=== PATIENT | male | born 1955 | race Caucasian/White ===

== ENCOUNTER 2017-07-26 06:15 | Emergency (ER) | payer OTHER ==
[2017-07-26] MEDS ORDERED: Silver Nitrate/Potassium Nitr* 1 EA STICK ONE ×2 (06:32→06:34)
[2017-07-26] MEDS ORDERED: Aspirin Low Dose CHEW TAB* 81 MG PO ONE (06:38)
[2017-07-26 06:57] LABS: ABS Basophils 0.1 10^3/ul (0-0.2); ABS Eosinophils 0.1 10^3/ul (0-0.6); ABS Lymphocytes 1.6 10^3/ul (1.0-4.8); ABS Monocytes 0.5 10^3/ul (0-0.8); ABS Neutrophils 2.4 10^3/ul (1.5-7.7); ABS Nucleated RBC 0 10^3/ul; Eosinophil % 3.1 % (0-6); Hematocrit 39 % (42-52); Hemoglobin 13.4 g/dl (14.0-18.0); Lymphocyte % 32.8 % (25-47); Mean Corpuscular HGB Conc 34 g/dl (31-36); Mean Corpuscular Hemoglobin 31 pg (27-31); Mean Corpuscular Volume 92 fL (80-94); Mean Platelet Volume 8 um3 (7.4-10.4); Nucleated Red Blood Cells % 0; Platelet Count 211 10^3/ul (150-450); Red Blood Count 4.28 10^6/ul (4.0-5.4); Red Cell Distribution Width 13 % (10.5-15); White Blood Count 4.7 10^3/ul (3.5-10.8)
[2017-07-26 07:06] LABS: INR 1.09 (0.77-1.02)
--- NOTE | 2017-07-26 07:14 | ED ---
Javi Cavazos Rebecca, scribed for Cherie Presley MD on 07/26/17 at 0634 . HPI Chest Pain - HPI Summary HPI Summary: Pt is a 61 y/o M who presents to ED c/o chest tightness for 2 days. When asked to describe the sensation, he denies any pain, reporting it is a tightness and discomfort located in the right lateral chest. Sx aggravated and alleviated by nothing. Additionally c/o SOB characterized as dyspnea at rest and nausea as well as a wound on the upper lip from shaving this morning. Also reports that hes been "not feeling good for a couple weeks" describing generalized weakness and fatigue. Denies vomiting and abdominal pain. Is not on blood thinners. Has had a stress test previously. Works in the [employer] dept. at [employer], in a [employer] shop and at a [employer]. No PMHx liver disease or complications from alcohol. - History of Current Complaint Chief Complaint: EDChestPainROMI Hx Obtained From: Patient Onset/Duration: Started Days Ago - 2 days, Still Present Current Severity: None Pain Intensity: 0 Pain Scale Used: 0-10 Numeric Chest Pain Location: Right Lateral Character: Tightness, Other: - Discomfort Aggravating Factor(s): Nothing Alleviating Factor(s): Nothing Associated Signs and Symptoms: Positive: Chest Pain - tightness, Shortness of Breath, Nausea. Negative: Vomiting - Allergy/Home Medications Allergies/Adverse Reactions: Allergies Allergy/AdvReac Type Severity Reaction Status Date / Time No Known Allergies Allergy Verified 06/08/15 11:51 PMH/Surg Hx/FS Hx/Imm Hx Endocrine/Hematology History: Denies: Hx Diabetes, Hx Thyroid Disease Cardiovascular History: Reports: Hx Hypertension - ON MEDS Denies: Other Cardiovascular Problems/Disorders Respiratory History: Reports: Hx Chronic Obstructive Pulmonary Disease (COPD) - herniated diaphragm, Hx Sleep Apnea Denies: Hx Asthma, Other Respiratory Problems/Disorders GI History: Denies: Hx Ulcer Sensory History: Reports: Hx Contacts or Glasses - READING GLASSES Denies: Hx Hearing Aid Opthamlomology History: Reports: Hx Contacts or Glasses - READING GLASSES - Surgical History Surgery Procedure, Year, and Place: Left wrist repair, 1999, [facility] [place] [facility] [place] , 1987, [place] Hx Anesthesia Reactions: No Infectious Disease History: No Infectious Disease History: Denies: Hx Hepatitis, Hx Human Immunodeficiency Virus (HIV), History Other Infectious Disease, Traveled Outside the [place] in Last 30 Days - Family History Known Family History: Positive: Cardiac Disease, Diabetes, Other - mother with history of colon cancer - Social History Alcohol Use: Occasionally Alcohol Amount: 5 PER WEEK Substance Use Type: Reports: None Smoking Status (MU): Never Smoked Tobacco Have You Smoked in the Last Year: No Review of Systems Positive: Fatigue, Other - generalized weakness Positive: Chest Pain - tightness Positive: Shortness Of Breath Positive: Nausea. Negative: Abdominal Pain, Vomiting Positive: Other - Wound on the upper lip All Other Systems Reviewed And Are Negative: Yes Physical Exam - Summary Physical Exam Summary: VITAL SIGNS: Reviewed. GENERAL: ~Patient is a well-developed and nourished male who is lying comfortable in the stretcher. Patient is not in any acute respiratory distress. HEAD AND FACE: He has a small laceratoin over the upper lip that is oozing which was cauterized with silver nitrate which stopped the bleeding. No ecchymosis, hematomas or skull depressions. No sinus tenderness. EYES: PERRLA, EOMI x 2, No injected conjunctiva, no nystagmus. EARS: Hearing grossly intact. Ear canals and tympanic membranes are within normal limits. MOUTH: Oropharynx within normal limits. Alcohol on breath. NECK: Supple, trachea is midline, no adenopathy, no JVD, no carotid bruit, no c- spine tenderness, neck with full ROM. CHEST: Symmetric, no tenderness at palpation LUNGS: Clear to auscultation bilaterally. No wheezing or crackles. CVS: Regular rate and rhythm, S1 and S2 present, no murmurs or gallops appreciated. ABDOMEN: Soft, non-tender. Abdomen is distended. No rebound no guarding, and no masses palpated. Bowel sounds are normal. EXTREMITIES: FROM in all major joints, no edema, no cyanosis or clubbing. NEURO: Alert and oriented x 3. No acute neurological deficits. Speech is normal and follows commands. SKIN: Dry and warm Triage Information Reviewed: Yes Vital Signs On Initial Exam: Initial Vitals Temp Pulse Resp BP Pulse Ox 97.9 F 88 20 176/102 94 07/26/17 06:16 07/26/17 06:16 07/26/17 06:16 07/26/17 06:16 07/26/17 06:16 Vital Signs Reviewed: Yes Diagnostics - Vital Signs Vital Signs Temp Pulse Resp BP Pulse Ox 07/26/17 06:16 97.9 F 88 20 176/102 94 - Laboratory Lab Statement: Any lab studies that have been ordered have been reviewed, and results considered in the medical decision making process. - EKG 0639 Cardiac Rate: NL - 85 bpm EKG Rhythm: Sinus Rhythm EKG Interpretation: Normal axis. Normal interval. No ischemic changes. Chest Pain Course/Dx - Course Assessment/Plan: Pt is a 61 y/o M who presents to ED c/o tightness in the right lateral chest for 2 days. Additionally c/o SOB characterized as dyspnea at rest and nausea as well as a wound on the upper lip from shaving this morning. Also reports that hes been "not feeling good for a couple weeks" describing generalized weakness and fatigue. Denies vomiting and abdominal pain. Is not on blood thinners. Has had a stress test previously. 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 No PMHx liver disease or complications from alcohol. EKG is sinus rhythm. Pt will be signed out to Dr. Aparicio, pending disposition, awaiting CXR and CP workup. Elevated BP noted. - Diagnoses Provider Diagnoses: Chest pain Discharge - Discharge Plan Condition: Stable Disposition: OTHER Discharge Disposition Comment: Pt will be signed out, pending dispo, awaiting CXR and workup Referrals: Darryn Khan MD [Primary Care Provider] - The documentation as recorded by the Javi reyes Rebecca accurately reflects the service I personally performed and the decisions made by me, Cherie Presley MD.
[2017-07-26 07:15] LABS: EGFR Non-African American 72.3 (>60)
--- NOTE | 2017-07-26 07:50 | RAD ---
HISTORY: Chest pain COMPARISONS: April 29, 2010 VIEWS: 1: frontal portable view of the chest at 6:57 AM FINDINGS: LINES AND TUBES: None. CARDIOMEDIASTINAL SILHOUETTE: The cardiomediastinal silhouette is normal for portable technique. PLEURA: Again noted is elevation of left hemidiaphragm LUNG PARENCHYMA: The lungs are clear. ABDOMEN: The upper abdomen is clear. There is no subphrenic gas. BONES AND SOFT TISSUES: No bone or soft tissue abnormalities are noted. IMPRESSION: AGAIN NOTED IS ELEVATION OF THE LEFT HEMIDIAPHRAGM.
[2017-07-26 08:37] VITALS: BP 167/102
--- NOTE | 2017-07-26 09:18 | ED ---
Leon Cavazos Jennifer, scribed for Bean Aparicio MD on 07/26/17 at 0845 . Progress - Progress Note Progress Note: The patient is a sign out from Dr. Presley pending CXR and cardiac workup. CXR. Interpreted by a radiologist. IMPRESSION: AGAIN NOTED IS ELEVATION OF THE LEFT HEMIDIAPHRAGM. Dr. Aparicio has reviewed this report. Course/Dx - Course Course Of Treatment: The patient is a sign out from Dr. Presley pending CXR and cardiac workup. CXR shows AGAIN NOTED IS ELEVATION OF THE LEFT HEMIDIAPHRAGM. DISCUSSED RESULTS WITH THE PATIENT. THE CHEST PRESSURE HAS BEEN INTERMITTENT ( LASTING FOR A MINUTE OR 2 AT A TIME) AND RIGHT SIDED. THE LAST EPISODE WAS YESTERDAY THEREFORE NO SECOND TROPONIN WAS DONE. DISCUSSED ADMISSION FOR FURTHER EVALUATION OF THE CHEST PAIN; THE PATIENT DECLINED ADMISSION. HE PREFERS TO F/U WITH HIS PMD. AGREED TO RETURN IF WORSE. - Diagnoses Provider Diagnoses: Chest pain The documentation as recorded by the Leon reyes Jennifer accurately reflects the service I personally performed and the decisions made by , Bean Aparicio MD.
== END 2017-07-26 08:33 | disposition home or self-care (01) ==
LOC: ED 06:15
DX: R07.89 Other chest pain (principal); R06.02 Shortness of breath; J98.6 Disorders of diaphragm
CPT/HCPCS: 36415; 71045; 80053; 80320; 83735; 84484; 85025; 85379; 85610; 85730; 93005; 99282; A9270-GY; G0480

== ENCOUNTER 2017-11-23 05:47 | Emergency (ER) | payer OTHER ==
[2017-11-23] MEDS ORDERED: Morphine VIAL* 4 MG/ML VIAL (1 ml vial) IV ONE (06:03)
--- NOTE | 2017-11-23 06:09 | ED ---
GI/ HPI - HPI Summary HPI Summary: 62-year-old male presents with lower abdominal pain starting today. pain woke him out of his sleep. He states pain radiates to his back to his bilateral groin. He denies any pain with urination. No hematuria. No history of kidney stones. Has any history of diverticulitis. No diarrhea but states could not go to the bathroom this morning. No nausea vomiting. no chest pain or shortness breath. No flank pain. No injury. No loss of bladder or saddle anesthesia. Pain does not radiate into the legs. No fevers. Hasn't taking anything for his pain. Pain is better when standing. Pain radiates to the groin. No penile discharge. - History of Current Complaint Chief Complaint: EDAbdPain Time Seen by Provider: 11/23/17 05:59 Stated Complaint: GROIN/BACK PAIN Pain Intensity: 9 - Allergy/Home Medications Allergies/Adverse Reactions: Allergies Allergy/AdvReac Type Severity Reaction Status Date / Time No Known Allergies Allergy Verified 11/23/17 05:50 PMH/Surg Hx/FS Hx/Imm Hx Endocrine/Hematology History: Denies: Hx Diabetes, Hx Thyroid Disease Cardiovascular History: Reports: Hx Hypertension - ON MEDS Denies: Other Cardiovascular Problems/Disorders Respiratory History: Reports: Hx Chronic Obstructive Pulmonary Disease (COPD) - herniated diaphragm, Hx Sleep Apnea Denies: Hx Asthma, Other Respiratory Problems/Disorders GI History: Denies: Hx Ulcer Sensory History: Reports: Hx Contacts or Glasses - READING GLASSES Denies: Hx Hearing Aid Opthamlomology History: Reports: Hx Contacts or Glasses - READING GLASSES - Surgical History Surgery Procedure, Year, and Place: Left wrist repair, 1999, [facility] [place]. RIGHT HERNIA , 1987, [place], [place] Hx Anesthesia Reactions: No Infectious Disease History: No Infectious Disease History: Denies: Hx Hepatitis, Hx Human Immunodeficiency Virus (HIV), History Other Infectious Disease, Traveled Outside the [place] in Last 30 Days - Family History Known Family History: Positive: Cardiac Disease, Diabetes, Other - mother with history of colon cancer - Social History Alcohol Use: Weekly Alcohol Amount: 5 PER WEEK Substance Use Type: Reports: None Smoking Status (MU): Never Smoked Tobacco Have You Smoked in the Last Year: No Review of Systems Negative: Fever Negative: Chest Pain Negative: Shortness Of Breath Positive: Abdominal Pain. Negative: Vomiting, Diarrhea, Nausea Negative: dysuria All Other Systems Reviewed And Are Negative: Yes Physical Exam Triage Information Reviewed: Yes Vital Signs On Initial Exam: Initial Vitals Temp Pulse Resp BP Pulse Ox 98.3 F 77 20 169/98 94 11/23/17 05:48 11/23/17 05:48 11/23/17 05:48 11/23/17 05:48 11/23/17 05:48 Vital Signs Reviewed: Yes Appearance: Positive: Well-Appearing Skin: Positive: Warm, Dry Head/Face: Positive: Normal Head/Face Inspection Eyes: Positive: Normal, Conjunctiva Clear ENT: Positive: Pharynx normal Respiratory/Lung Sounds: Positive: Clear to Auscultation, Breath Sounds Present Cardiovascular: Positive: Normal, RRR Abdomen Description: Positive: Nontender, Soft. Negative: CVA Tenderness (R), CVA Tenderness (L) Bowel Sounds: Positive: Present Musculoskeletal: Positive: Normal Neurological: Positive: Normal Psychiatric: Positive: Normal Diagnostics - Vital Signs Vital Signs Temp Pulse Resp BP Pulse Ox 11/23/17 05:48 98.3 F 77 20 169/98 94 - Laboratory Result Diagrams: 11/23/17 06:19 11/23/17 06:19 Lab Statement: Any lab studies that have been ordered have been reviewed, and results considered in the medical decision making process. - CT abd CT Interpretation: Positive (See Comments) - 1mm distal right ureteral stone without hydro CT Interpretation Completed By: Radiologist Re-Evaluation - Re-Evaluation First Eval Re-Evaluation Time: 07:35 Change: Improved Comment: feeling better with pain medicaiton. GIGU Course/Dx - Course Course Of Treatment: 62-year-old male presents with lower abdominal pain starting today. pain woke him out of his sleep. He states pain radiates to his back to his bilateral groin. He denies any pain with urination. No hematuria. No history of kidney stones. Has any history of diverticulitis. No diarrhea but states could not go to the bathroom this morning. No nausea vomiting. no chest pain or shortness breath. No flank pain. No injury. No loss of bladder or saddle anesthesia. Pain does not radiate into the legs. No fevers. Hasn't taking anything for his pain. Pain is better when standing. Pain radiates to the groin. No penile discharge. on exam nontender abd. neg CVA tenderness. wbc normal. lfts elevated which is consistent with previously like due to ETOH history. CT shows 1mm distal right ureteral stone without hydro. Patient feels comfortable after morphine. Urine no infection. Discharged with pain medication and Flomax. We'll have follow-up with urology. Patient understands agrees with plan. - Diagnoses Differential Diagnoses - Male: Diverticulitis, Ureteral Calculi, Urinary Tract Infection Provider Diagnoses: Ureteral stone Discharge - Sign-Out/Discharge Documenting (check all that apply): Discharge/Admit/Transfer - Discharge Plan Condition: Good Disposition: HOME Prescriptions: Ondansetron TAB* [Zofran 4 MG Tab*] 4 mg PO Q6H PRN #8 tab PRN Reason: Nausea oxyCODONE/Acetamin 5/325 MG* [Percocet 5/325 TAB*] 1 tab PO Q6H PRN #16 tab MDD 4 PRN Reason: Pain Tamsulosin CAP* [Flomax CAP*] 0.4 mg PO DAILY #7 cap Patient Education Materials: Ureteral Stones (ED) Referrals: Darryn Khan MD [Primary Care Provider] - Zohaib Melchor MD [Medical Doctor] - Additional Instructions: Take ibuprofen every 6 hours and narcotic as needed every 6 hours Take Zofran every 6 hours for nausea as needed Take Flomax daily starting tomorrow, first dose given in ED until stone expelled , make sure stand up slowly Follow up with urology, call office for appointment Strain urine until collect stone Return to ED if unable to manage pain at home, develop fever, or any new or worsening symptoms - Billing Disposition and Condition Condition: GOOD Disposition: Home
[2017-11-23 06:33] LABS: ABS Basophils 0.1 10^3/ul (0-0.2); ABS Eosinophils 0.2 10^3/ul (0-0.6); ABS Lymphocytes 1.3 10^3/ul (1.0-4.8); ABS Monocytes 0.4 10^3/ul (0-0.8); ABS Neutrophils 4.1 10^3/ul (1.5-7.7); ABS Nucleated RBC 0 10^3/ul; Eosinophil % 3.3 % (0-6); Hematocrit 40 % (42-52); Hemoglobin 13.6 g/dl (14.0-18.0); Lymphocyte % 21.3 % (25-47); Mean Corpuscular HGB Conc 34 g/dl (31-36); Mean Corpuscular Hemoglobin 32 pg (27-31); Mean Corpuscular Volume 95 fL (80-94); Mean Platelet Volume 8.5 um3 (7.4-10.4); Nucleated Red Blood Cells % 0.1; Platelet Count 184 10^3/ul (150-450); Red Cell Distribution Width 13 % (10.5-15); White Blood Count 6.1 10^3/ul (3.5-10.8)
[2017-11-23 06:50] LABS: EGFR Non-African American 64.9 (>60)
[2017-11-23 07:31] LABS: Urine Appearance Clear; Urine Blood 3+ (Negative); Urine Color Yellow; Urine Ketones Negative (Negative); Urine Protein Negative (Negative); Urine Specific Gravity 1.011 (1.010-1.030); Urine Urobilinogen Negative (Negative)
[2017-11-23] MEDS ORDERED: Tamsulosin CAP* 0.4 MG PO ONE (07:35)
--- NOTE | 2017-11-23 08:37 | RAD ---
INDICATION: Lower abdominal pain radiating to the bilateral groin and lower back. Previous RIGHT-sided hernia repair. COMPARISON: November 06, 2014 CT. TECHNIQUE: Multidetector CT images were obtained from the lung bases to the ischial tuberosities. Evaluation of the viscera is limited without IV contrast. Multiplanar reformation. REPORT: Chronic severe elevation of the LEFT hemidiaphragm. Associated mild rightward shift of the mediastinum. Upper normal size liver. No focal hepatic lesions evident. No CT abnormality of the gallbladder. Negative for biliary dilatation. Few scattered calcifications at the pancreas may reflect sequela previous pancreatitis. No acute inflammatory change of the pancreas or suspicious focal pancreatic lesions evident. Unremarkable spleen. Incompletely visualized stomach and splenic flexure of the colon due to the elevated LEFT hemidiaphragm. No CT abnormality in the visualized upper GI, small bowel, or appendix. Severe colonic diverticulosis without findings of acute diverticulitis within the [id number]. Negative for ascites or free air. Negative for significant hernias. Normal adrenal glands. Negative for nephrolithiasis or hydronephrosis. Small exophytic cortical cyst mid to upper pole LEFT kidney without suspicious interval change. Minimal prominence of the RIGHT ureter and mild periureteral inflammatory stranding. Punctate approximate 1 mm ureteral stone 2 cm from the RIGHT ureterovesicular junction. Unremarkable LEFT ureter. Unremarkable partially distended urinary bladder. Symmetric seminal vesicles. Negative for lymphadenopathy. Normal diameter abdominal aorta with mild calcific plaque. Physiologic distention of the IVC. Negative for suspicious osseous lesions. IMPRESSION: Punctate approximate 1 mm ureteral stone 2 cm from the RIGHT ureterovesicular junction. Associated minimal dilatation of the RIGHT ureter and periureteral inflammatory stranding. No dilatation of the intrarenal collecting system evident.
[2017-11-23 09:02] VITALS: BP 150/93
== END 2017-11-23 08:59 | disposition home or self-care (01) ==
LOC: ED 05:47
DX: N20.1 Calculus of ureter (principal); R10.30 Lower abdominal pain, unspecified; I10 Essential (primary) hypertension
CPT/HCPCS: 36415; 74176; 80053; 81003; 81015; 83605; 83690; 85025; 86140; 96374; 99283; J2270

== ENCOUNTER 2019-01-02 05:53 | Emergency (ER) | payer OTHER ==
[2019-01-02 06:58] LABS: ABS Basophils 0.2 10^3/ul (0-0.2); ABS Eosinophils 0.1 10^3/ul (0-0.6); ABS Lymphocytes 1.3 10^3/ul (1.0-4.8); ABS Monocytes 0.6 10^3/ul (0-0.8); ABS Neutrophils 3.4 10^3/ul (1.5-7.7); Eosinophil % 1.3 %; Hematocrit 41 % (42-52); Hemoglobin 14.3 g/dL (14.0-18.0); Lymphocyte % 23.4 %; Mean Corpuscular HGB Conc 35 g/dL (31-36); Mean Corpuscular Hemoglobin 32 pg (27-31); Mean Corpuscular Volume 94 fL (80-94); Mean Platelet Volume 8.1 fL (7.4-10.4); Nucleated Red Blood Cells % 0.1; Platelet Count 201 10^3/uL (150-450); Red Blood Count 4.43 10^6 /uL (4.18-5.48); Red Cell Distribution Width 14 % (10-15); White Blood Count 5.7 10^3/uL (3.5-10.8)
[2019-01-02 07:15] LABS: ALT 97 U/L (7-52); AST 148 U/L (13-39); Albumin 3.9 g/dL (3.2-5.2); Albumin/Globulin Ratio 1.6 (1-3); Alkaline Phosphatase 89 U/L (34-104); Anion Gap 9 mmol/L (2-11); BUN/Creatinine Ratio 23.8 (8-20); Blood Urea Nitrogen 25 mg/dL (6-24); C Reactive Protein < 1.00 mg/L (<8.01); CO2 Carbon Dioxide 30 mmol/L (22-32); Calcium 8.5 mg/dL (8.6-10.3); Chloride 100 mmol/L (101-111); EGFR African American 86.9 (>60); EGFR Non-African American 71.8 (>60); Globulin 2.5 g/dL (2-4); Glucose 172 mg/dL (70-100); Potassium 3.9 mmol/L (3.5-5.0); Sodium 139 mmol/L (135-145); Total Protein 6.4 g/dL (6.4-8.9)
[2019-01-02 07:38] LABS: Alcohol < 10 mg/dL (<10)
[2019-01-02 07:45] LABS: INR 1.43 (0.82-1.09)
--- NOTE | 2019-01-02 08:20 | ED ---
Shortness of Breath - HPI Summary HPI Summary: Patient is a 63-year-old male with a history of a left-sided herniated diaphragm , heavy alcohol use, hypertension and hypercholesterolemia presents to the ED with dry heaves over the past 2 days, shortness of breath and weakness 3 days. He states he has been weak the last 3 days, with a decreased appetite and dry heaves. He denies any abdominal pain or vomiting. Denies any constipation or diarrhea. He continues to have bowel movements. He states while working this morning at around 5 AM, he started to become short of breath so came to the ED for further evaluation. He has no history of COPD or asthma. Denies smoking history. Denies any recent travel or known malignancy. Denies cramping or leg pain. Decreased appetite, but was able to eat last evening, nothing to eat this morning. Patient does state he has been drinking more heavily. PMH: alcohol use, HTN, HCL, herniated diaphragm Social hx: alcohol use, no smoking hx, lives at home Surghx: Hernia repair - History of Current Complaint Chief Complaint: EDShortnessOfBreath Time Seen by Provider: 01/02/19 06:05 Hx Obtained From: Patient Onset/Duration: Gradual Onset, Lasting Days Timing: Constant Current Severity: Mild Associated Signs & Symptoms: Negative - Risk Factors Pulmonary Embolism: Negative Cardiac: Negative Pseudomonas: Negative - Allergy/Home Medications Allergies/Adverse Reactions: Allergies Allergy/AdvReac Type Severity Reaction Status Date / Time No Known Allergies Allergy Verified 01/02/19 05:56 PMH/Surg Hx/FS Hx/Imm Hx Previously Healthy: Yes Endocrine/Hematology History: Denies: Hx Diabetes, Hx Thyroid Disease Cardiovascular History: Reports: Hx Hypertension - ON MEDS Denies: Other Cardiovascular Problems/Disorders Respiratory History: Reports: Hx Chronic Obstructive Pulmonary Disease (COPD) - herniated diaphragm, Hx Sleep Apnea Denies: Hx Asthma, Other Respiratory Problems/Disorders GI History: Denies: Hx Ulcer Sensory History: Reports: Hx Contacts or Glasses - READING GLASSES Denies: Hx Hearing Aid Opthamlomology History: Reports: Hx Contacts or Glasses - READING GLASSES - Surgical History Surgery Procedure, Year, and Place: Left wrist repair, 1999, [facility] [place]. [place] , 1987, [place], 2014 Hx Anesthesia Reactions: No - Immunization History Hx Pertussis Vaccination: No Immunizations Up to Date: Yes Infectious Disease History: No Infectious Disease History: Denies: Hx Hepatitis, Hx Human Immunodeficiency Virus (HIV), History Other Infectious Disease, Traveled Outside the [place] in Last 30 Days - Family History Known Family History: Positive: Cardiac Disease, Diabetes, Other - mother with history of colon cancer - Social History Occupation: Employed Full-time Lives: With Family Alcohol Use: Daily Alcohol Amount: 1/2 pint blackberry wilfredo Hx Substance Use: No Substance Use Type: Reports: None Hx Tobacco Use: No Smoking Status (MU): Never Smoked Tobacco Have You Smoked in the Last Year: No Review of Systems - ROS Summary Review of Systems Summary: Constitutional: The patient denies fever, MARIN, sweats or chills. HEENT: Head: The patient denies headaches or dizziness. Eyes: The patient denies diplopia, blurry vision, eye pain, eye discharge, photophobia. Throat: The patient denies sore throats or hoarseness. Cardiovascular: The patient denies chest pain, palpitations, syncope, night cramps, or orthostasis. Respiratory: The patient endorses SOB, denies cough, sputum production, hemoptysis, wheezing. Denies orthopnea. Gastrointestinal: The patient denies odynophagia, dysphagia, hematemesis, melenemesis. Denies abdominal pain, nausea or vomiting. Denies constipation or diarrhea. He does endorse dry heaves. Genitourinary: Patient denies dysuria, hematuria, or pyuria. Patient denies back pain. Muscles: The patient denies myalgia, strain or weakness. Joints: The patient denies arthralgia and/or arthritis. Neurologic: The patient denies headache, loss of consciousness, or seizure. Dermatologic: The patient denies rashes. Constitutional: Negative Negative: Fever, Chills, Fatigue, Skin Diaphoresis Negative: Palpitations, Chest Pain Positive: Shortness Of Breath. Negative: Cough Positive: Other - dry heaves Genitourinary: Negative Positive: no symptoms reported, see HPI Negative: Arthralgia, Myalgia Positive: Weakness All Other Systems Reviewed And Are Negative: Yes Physical Exam - Summary Physical Exam Summary: Appearance: comfortable, pleasant, alert Skin: Soft dry skin, no lesions. Nailbeds pink with no cyanosis or clubbing. No petechia noted. Eyes: FRANCISCO, EOMI, Conjunctiva pink with no redness or exudates. Mouth: Dentition without lesions. Moist mucosa Neck: Full range of motion. Palpable thyroid. Trachea at midline. No lymphadenopathy. Pulm: Chest assymetrical. No deformities on posterior chest wall. Lungs clear to auscultation and percussion, without adventitious sounds. Decreased breath sounds to the L. CV: No JVD. No deformities on anterior chest wall. Heart sounds. RRR. Normal S1 and single S2. No S3, S4, rubs, or murmurs. Carotids 2+ bilaterally without bruits. . GI: Bowel sounds WNL in all 4 quadrants. No pain on deep palpation of all 4 quadrants. Negative rizvi's, negative obturator. Psoas not performed. No pain over Mcburney's point. Musculoskeletal: Flexion and extension of neck without limitations. ROM WNL in all extremities. No deformities noted. Pulses +2 bilaterally. Neuro: Motor strength is 5/5 in upper and lower extremities bilaterally. A&OX3 Psych: Logical, coherent Vital Signs On Initial Exam: Initial Vitals Temp Pulse Resp BP Pulse Ox 97.4 F 76 20 159/101 96 01/02/19 05:55 01/02/19 05:55 01/02/19 05:55 01/02/19 05:55 01/02/19 05:55 Diagnostics - Vital Signs Vital Signs Temp Pulse Resp BP Pulse Ox 01/02/19 07:34 82 17 163/97 95 01/02/19 07:00 85 17 95 01/02/19 06:34 84 14 149/93 95 01/02/19 06:04 83 17 156/101 92 01/02/19 06:03 20 01/02/19 05:55 97.4 F 76 20 159/101 96 - Laboratory Lab Results: Lab Results 01/02/19 01/02/19 01/02/19 Range/Units 06:45 06:45 06:45 WBC 5.7 (3.5-10.8) 10^3/uL RBC 4.43 (4.18-5.48) 10^6 /uL Hgb 14.3 (14.0-18.0) g/dL Hct 41 L (42-52) % MCV 94 (80-94) fL MCH 32 H (27-31) pg MCHC 35 (31-36) g/dL RDW 14 (10-15) % Plt Count 201 (150-450) 10^3/uL MPV 8.1 (7.4-10.4) fL Neut % (Auto) 61.0 % Lymph % (Auto) 23.4 % [place] % (Auto) 10.5 % Eos % (Auto) 1.3 % Baso % (Auto) 3.8 % Absolute Neuts (auto) 3.4 (1.5-7.7) 10^3/ul Absolute Lymphs (auto) 1.3 (1.0-4.8) 10^3/ul Absolute Monos (auto) 0.6 (0-0.8) 10^3/ul Absolute Eos (auto) 0.1 (0-0.6) 10^3/ul Absolute Basos (auto) 0.2 (0-0.2) 10^3/ul Absolute Nucleated RBC 0.0 10^3/ul Nucleated RBC % 0.1 INR (Anticoag Therapy) (0.82-1.09) Sodium 139 (135-145) mmol/L Potassium 3.9 (3.5-5.0) mmol/L Chloride 100 L (101-111) mmol/L Carbon Dioxide 30 (22-32) mmol/L Anion Gap 9 (2-11) mmol/L BUN 25 H (6-24) mg/dL Creatinine 1.05 (0.67-1.17) mg/dL Est GFR ( Amer) 86.9 (>60) Est GFR (Non-Af Amer) 71.8 (>60) BUN/Creatinine Ratio 23.8 H (8-20) Glucose 172 H (70-100) mg/dL Lactic Acid 1.6 (0.5-2.0) mmol/L Calcium 8.5 L (8.6-10.3) mg/dL Total Bilirubin 1.30 H (0.2-1.0) mg/dL AST 148 H (13-39) U/L ALT 97 H (7-52) U/L Alkaline Phosphatase 89 (34-104) U/L Troponin I 0.00 (<0.04) ng/mL C-Reactive Protein < 1.00 (<8.01) mg/L Total Protein 6.4 (6.4-8.9) g/dL Albumin 3.9 (3.2-5.2) g/dL Globulin 2.5 (2-4) g/dL Albumin/Globulin Ratio 1.6 (1-3) Serum Alcohol < 10 (<10) mg/dL 01/02/19 Range/Units 06:45 WBC (3.5-10.8) 10^3/uL RBC (4.18-5.48) 10^6 /uL Hgb (14.0-18.0) g/dL Hct (42-52) % MCV (80-94) fL MCH (27-31) pg MCHC (31-36) g/dL RDW (10-15) % Plt Count (150-450) 10^3/uL MPV (7.4-10.4) fL Neut % (Auto) % Lymph % (Auto) % [place] % (Auto) % Eos % (Auto) % Baso % (Auto) % Absolute Neuts (auto) (1.5-7.7) 10^3/ul Absolute Lymphs (auto) (1.0-4.8) 10^3/ul Absolute Monos (auto) (0-0.8) 10^3/ul Absolute Eos (auto) (0-0.6) 10^3/ul Absolute Basos (auto) (0-0.2) 10^3/ul Absolute Nucleated RBC 10^3/ul Nucleated RBC % INR (Anticoag Therapy) 1.43 H (0.82-1.09) Sodium (135-145) mmol/L Potassium (3.5-5.0) mmol/L Chloride (101-111) mmol/L Carbon Dioxide (22-32) mmol/L Anion Gap (2-11) mmol/L BUN (6-24) mg/dL Creatinine (0.67-1.17) mg/dL Est GFR ( Amer) (>60) Est GFR (Non-Af Amer) (>60) BUN/Creatinine Ratio (8-20) Glucose (70-100) mg/dL Lactic Acid (0.5-2.0) mmol/L Calcium (8.6-10.3) mg/dL Total Bilirubin (0.2-1.0) mg/dL AST (13-39) U/L ALT (7-52) U/L Alkaline Phosphatase (34-104) U/L Troponin I (<0.04) ng/mL C-Reactive Protein (<8.01) mg/L Total Protein (6.4-8.9) g/dL Albumin (3.2-5.2) g/dL Globulin (2-4) g/dL Albumin/Globulin Ratio (1-3) Serum Alcohol (<10) mg/dL Result Diagrams: 01/02/19 06:45 01/02/19 06:45 Lab Statement: Any lab studies that have been ordered have been reviewed, and results considered in the medical decision making process. Course/Dx - Course Course Of Treatment: Patient is evaluated for dry heaves over the course of the past 3-4 days with fatigue. He is also endorsing shortness of breath which started this morning. He does have a history of herniated diaphragm. He denies any cough or congestion. He denies any fevers, sweats, chills. Denies abdominal pain, vomiting, diarrhea or constipation. Last bowel movement was yesterday and was normal. He continues to pass gas. Denies headache or visual changes. He denies any recent illness or travel. Labs obtained which show elevated AST and ALT consistent with a 2:1 ratio consistent with alcoholic hepatic disease. Bili 1.30. Patient denies any RUQ tenderness on deep palpation. No evidence of SBO or obstruction as patient continues to pass gas and have bowel movements. Endorses daily alcohol use with last use last evening. Normal mental status, mild tremor, mild anxiety, headache, no diaphoresis or palpitations per patient. He endorses anorexia and GI upset. Endorses insomnia. Patient has never had seizure-like activity in the past. He states he feels as though he is in WD. He has tried to quit in the past and would like to stop drinking now. He is requesting medications for help. Discussed Ativan and its appropriate use. Pt agrees to not drink alcohol if taking the Ativan. He will f/u with Dr. Bailey soon for a recheck and reevaluation of his alcohol use. VS stable: 97.4, pulse of 76, respirations 20 , 96% on room air and 159/101. This was rechecked at 140/85 approximately 30 minutes after arrival. - Diagnoses Provider Diagnoses: Alcohol withdrawal Discharge - Sign-Out/Discharge Documenting (check all that apply): Patient Departure Patient Received Moderate/Deep Sedation with Procedure: No - Discharge Plan Condition: Stable Disposition: HOME Prescriptions: LORazepam TAB(*) [Ativan 1 MG TAB (*)] 1 mg PO Q8H PRN #10 tab MDD 3 PRN Reason: Anxiety Patient Education Materials: Alcohol Withdrawal (ED) Referrals: Darryn Khan MD [Primary Care Provider] - Additional Instructions: Take the Ativan only if you have withdrawal like symptoms Please follow up with Dr. Bailey as soon as possible Do not drink alcohol especially while taking this medication - Billing Disposition and Condition Condition: STABLE Disposition: Home
[2019-01-02 10:32] VITALS: BP 153/96
== END 2019-01-02 10:30 | disposition home or self-care (01) ==
LOC: ED 05:53
DX: F10.239 Alcohol dependence with withdrawal, unspecified (principal); I10 Essential (primary) hypertension; J44.9 Chronic obstructive pulmonary disease, unspecified; Z79.899 Other long term (current) drug therapy
CPT/HCPCS: 36415; 71046; 80053; 80320; 83605; 84484; 85025; 85610; 86140; 93005; 99283; G0480

== ENCOUNTER 2019-04-17 21:12 | Emergency (ER) | payer OTHER ==
[2019-04-17] MEDS ORDERED: chlordiazePOXIDE CAP* 25 MG PO ONE (21:37)
--- NOTE | 2019-04-17 21:38 | ED ---
Complex/Multi-Sys Presentation - HPI Summary HPI Summary: Pt is a 63 y/o M presenting to the ED with a chief complaint of shortness of breath. Pt states he quit drinking cold turkey about two days ago, and since then he has been experiencing a multitude of symptoms, including being somewhat short of breath/having difficulty breathing. He also reports decreased appetite , feeling like somethings growing in his abd, and he notes a slight chronic tremor. He denies cough, sore throat, rhinorrhea, or fever. - History Of Current Complaint Chief Complaint: EDShortnessOfBreath Time Seen by Provider: 04/17/19 21:27 Hx Obtained From: Patient Onset/Duration: Gradual Onset, Lasting Days, Still Present Timing: Constant, Days Severity Currently: Moderate Severity Initially: Moderate Associated Signs And Symptoms: Positive: SOB, Other - slight tremor. Negative: Cough, Fever - Allergies/Home Medications Allergies/Adverse Reactions: Allergies Allergy/AdvReac Type Severity Reaction Status Date / Time No Known Allergies Allergy Verified 04/17/19 21:16 PMH/Surg Hx/FS Hx/Imm Hx Previously Healthy: Yes Endocrine/Hematology History: Denies: Hx Diabetes, Hx Thyroid Disease Cardiovascular History: Reports: Hx Hypertension Denies: Other Cardiovascular Problems/Disorders Respiratory History: Reports: Hx Chronic Obstructive Pulmonary Disease (COPD), Hx Sleep Apnea Denies: Hx Asthma, Other Respiratory Problems/Disorders GI History: Denies: Hx Ulcer Sensory History: Reports: Hx Contacts or Glasses - READING GLASSES Denies: Hx Hearing Aid Opthamlomology History: Reports: Hx Contacts or Glasses - READING GLASSES Psychiatric History: Reports: Hx Substance Abuse - Surgical History Surgery Procedure, Year, and Place: Left wrist repair, 1999, [facility] – [place]. RIGHT HERNIA , 1987, LEFT HERNIA Hx Anesthesia Reactions: No Infectious Disease History: No Infectious Disease History: Denies: Hx Hepatitis, Hx Human Immunodeficiency Virus (HIV), History Other Infectious Disease, Traveled Outside the [place] in Last 30 Days - Family History Known Family History: Positive: Cardiac Disease, Diabetes, Other - mother with history of colon cancer - Social History Alcohol Use: Daily Alcohol Amount: 1/2 pint-1 pint blackberry wilfredo Hx Substance Use: No Substance Use Type: Reports: None Hx Tobacco Use: No Smoking Status (MU): Never Smoked Tobacco Have You Smoked in the Last Year: No Review of Systems Negative: Fever Negative: Sore Throat, Nasal Discharge Positive: Shortness Of Breath. Negative: Cough Positive: Other - "feels like something's growing in my stomach" All Other Systems Reviewed And Are Negative: Yes Physical Exam - Summary Physical Exam Summary: Appearance: Well-appearing man who appears his stated age, does not appear ill or toxic. Well-nourished, lying in bed comfortably. Elevated BP noted. Skin: Warm, dry, no obvious rash Eyes: sclera anicteric, no conjunctival pallor ENT: mucous membranes moist, pharynx appears normal Neck: Supple, nontender Respiratory: Clear to auscultation, no signs of respiratory distress Cardiovascular: Normal S1, S2. No murmurs. Normal distal pulses in tibial and radial bilaterally. Abdomen: Soft, nontender, normal active bowel sounds present Musculoskeletal: Normal, Strength/ROM Intact Neurological: A&Ox3, awake and alert, mentation is normal, speech is fluent and appropriate. Fine tremor of hands that he says is chronic. Psychiatric: affect is normal, does not appear anxious or depressed Triage Information Reviewed: Yes Vital Signs On Initial Exam: Initial Vitals Temp Pulse Resp BP Pulse Ox 96.9 F 87 20 194/96 92 04/17/19 21:13 04/17/19 21:13 04/17/19 21:13 04/17/19 21:13 04/17/19 21:13 Vital Signs Reviewed: Yes Procedures - Sedation Patient Received Moderate/Deep Sedation with Procedure: No Diagnostics - Vital Signs Vital Signs Temp Pulse Resp BP Pulse Ox 04/17/19 21:13 96.9 F 87 20 194/96 92 - Laboratory Result Diagrams: 04/17/19 21:46 04/17/19 21:46 Lab Statement: Any lab studies that have been ordered have been reviewed, and results considered in the medical decision making process. - Radiology CXR Radiology Interpretation Completed By: ED Physician Summary of Radiographic Findings: Nothing acute. Stable large left hiatal hernia , unchanged since the last film in December. Pending official radiology report. - EKG 2123 Cardiac Rate: NL - 86bpm EKG Rhythm: Sinus Rhythm ST Segment: Normal Ectopy: None Summary of EKG Findings: EKG at 2123 shows NSR at 86bpm, P waves, QRS complex, and T waves are within normal limits, T waves and intervals are normal, no ischemic changes. This is a normal EKG. ED physician has reviewed and interpreted this EKG. Complex Multi-Symp Course/Dx Course Of Treatment: Pt is a 63 y/o M presenting to the ED with a chief complaint of shortness of breath. Pt states he quit drinking cold turkey about two days ago, and since then he has been experiencing slight shortness of breath , decreased appetite, feeling like somethings growing in his abd, and he notes a slight chronic tremor. He denies cough, sore throat, rhinorrhea, or fever. He notes hx of alcoholism. On exam, pt has a fine tremor of his hands that he states is chronic. Pt is a well-appearing man who looks his stated age and does not appear ill or chronic. Elevated BP noted. Pt has asymptomatic high blood pressure on triage that I believe is likely from alcohol withdrawal. This one of many irregularities c/w delirium tremors, I do not think it is autonomic. EKG at 2123 shows NSR at 86bpm, P waves, QRS complex, and T waves are within normal limits, T waves and intervals are normal, no ischemic changes. This is a normal EKG. ED physician has reviewed and interpreted this EKG. CXR shows nothing acute. Stable large left hiatal hernia, unchanged since the last film in December. Pending official radiology report. Pt will be d/c'ed with dx of alcohol withdrawal and hypoxemia. He's stable and agreeable with this plan. - Diagnoses Provider Diagnoses: Hypoxemia, Alcohol withdrawal Discharge ED - Sign-Out/Discharge Documenting (check all that apply): Patient Departure - Discharge Plan Condition: Good Disposition: HOME Prescriptions: [email or web address] CAP* [Librium CAP*] 50 mg PO TID PRN #25 cap MDD 225 mg PRN Reason: Withdrawal - Alcohol Patient Education Materials: Alcohol Withdrawal (ED), Hypoxemia (DC) Referrals: Darryn Khan MD [Primary Care Provider] - Betty Alvarez MD [Medical Doctor] - Additional Instructions: Use the librium 2-3 times daily to control the withdrawal symptoms. I would also recommend getting in to see Dr. Alvarez for further workup of your low oxygen levels and shortness of breath. - Billing Disposition and Condition Condition: GOOD Disposition: Home - Attestation Statements Document Initiated by Scribe: Yes Documenting Scribe: Keiry Chester Provider For Whom Scribe is Documenting (Include Credential): Eric Callahan MD. Scribe Attestation: IKeiry, scribed for Eric Callahan MD. on 04/18/19 at 0630. Scribe Documentation Reviewed: Yes Provider Attestation: The documentation as recorded by the scribe, Keiry Chester accurately reflects the service I personally performed and the decisions made by me, Eric Callahan MD. Status of Scribe Document: Viewed
[2019-04-17 21:52] LABS: ABS Basophils 0.1 10^3/ul (0-0.2); ABS Lymphocytes 1.2 10^3/ul (1.0-4.8); ABS Monocytes 0.8 10^3/ul (0-0.8); ABS Neutrophils 6.9 10^3/ul (1.5-7.7); Eosinophil % 0.4 %; Hematocrit 45 % (42-52); Hemoglobin 15.1 g/dL (14.0-18.0); Mean Corpuscular HGB Conc 34 g/dL (31-36); Mean Corpuscular Hemoglobin 32 pg (27-31); Mean Corpuscular Volume 95 fL (80-94); Platelet Count 213 10^3/uL (150-450); Red Blood Count 4.73 10^6 /uL (4.18-5.48); Red Cell Distribution Width 13 % (10-15)
[2019-04-17 22:08] LABS: ALT 67 U/L (7-52); AST 96 U/L (13-39); Albumin/Globulin Ratio 1.3 (1-3); Alkaline Phosphatase 91 U/L (34-104); Anion Gap 9 mmol/L (2-11); BUN/Creatinine Ratio 21.7 (8-20); Blood Urea Nitrogen 28 mg/dL (6-24); CO2 Carbon Dioxide 31 mmol/L (22-32); Calcium 9.2 mg/dL (8.6-10.3); Chloride 96 mmol/L (101-111); EGFR African American 68.5 (>60); EGFR Non-African American 56.6 (>60); Glucose 147 mg/dL (70-100); Potassium 4.2 mmol/L (3.5-5.0); Sodium 136 mmol/L (135-145)
[2019-04-17 22:16] LABS: Alcohol < 10 mg/dL (<10)
[2019-04-18 00:58] VITALS: BP 156/103
== END 2019-04-18 01:05 | disposition home or self-care (01) ==
LOC: ED 21:12
DX: R09.02 Hypoxemia (principal); F10.239 Alcohol dependence with withdrawal, unspecified; I10 Essential (primary) hypertension; J44.9 Chronic obstructive pulmonary disease, unspecified
CPT/HCPCS: 36415; 71046; 80053; 80320; 85025; 85379; 93005; 99283; A9270-GY; G0480

== ENCOUNTER 2019-04-23 19:43 | Inpatient (IN) | payer OTHER ==
[2019-04-23 20:30] LABS: ABS Basophils 0.1 10^3/ul (0-0.2); ABS Eosinophils 0.1 10^3/ul (0-0.6); ABS Lymphocytes 0.9 10^3/ul (1.0-4.8); ABS Monocytes 0.8 10^3/ul (0-0.8); ABS Neutrophils 8.5 10^3/ul (1.5-7.7); Eosinophil % 0.7 %; Hematocrit 41 % (42-52); Hemoglobin 13.9 g/dL (14.0-18.0); Lymphocyte % 9.1 %; Mean Corpuscular HGB Conc 34 g/dL (31-36); Mean Corpuscular Hemoglobin 33 pg (27-31); Mean Corpuscular Volume 98 fL (80-94); Mean Platelet Volume 8.6 fL (7.4-10.4); Platelet Count 187 10^3/uL (150-450); Red Blood Count 4.24 10^6 /uL (4.18-5.48); Red Cell Distribution Width 14 % (10-15); White Blood Count 10.3 10^3/uL (3.5-10.8)
[2019-04-23 20:49] LABS: ALT 27 U/L (7-52); AST 21 U/L (13-39); Albumin 3.8 g/dL (3.2-5.2); Albumin/Globulin Ratio 1.3 (1-3); Alkaline Phosphatase 90 U/L (34-104); Anion Gap 6 mmol/L (2-11); BUN/Creatinine Ratio 11.5 (8-20); Blood Urea Nitrogen 30 mg/dL (6-24); CO2 Carbon Dioxide 34 mmol/L (22-32); Calcium 9.4 mg/dL (8.6-10.3); Chloride 100 mmol/L (101-111); Creatine Kinase 41 U/L (10-223); EGFR African American 30.5 (>60); EGFR Non-African American 25.2 (>60); Globulin 2.9 g/dL (2-4); Glucose 204 mg/dL (70-100); Potassium 4.5 mmol/L (3.5-5.0); Sodium 140 mmol/L (135-145); Total Protein 6.7 g/dL (6.4-8.9)
--- NOTE | 2019-04-23 20:50 | ED ---
Altered Mental Status - HPI Summary HPI Summary: This pt is a 63 y/o male, with hx of alcohol abuse, presenting to [facility] c/o confusion since this morning. Pt reports he quit drinking alcohol "cold turkey" on "Tuesday", but unable to tell if it was yesterday or last week (04/15/19). He states he came to the ED on 04/17/19 and was given Librium upon discharge. Pt denies drinking any alcohol since "Tuesday". [id number] and brother report they received a call from a friend reporting pt was confused all day today and had taken "one too many pills". Pt's medications include Naltrexone and Librium (which pt reports he took 6 of), aside from his regular medications. Per sister- in-law pt has been confused at least since 2 days ago. Per brother, pt didn't know at 1900 today if it was morning or night. Rswuzz-sz-[id number] reports pt has slurred speech. Brother states they went hunting this weekend (2 days ago) and could smell alcohol in patient's breath. PMHx: herniated diaphragm on the left and noted only his right lung works. On triage, pt is saturating at 82% on room air. HPI is limited due to level 5 caveat - pt is confused - History Of Current Complaint Chief Complaint: EDAltMentalStatus Stated Complaint: TOOK TOO MANY MEDS PER PT Hx Obtained From: Patient, Family/Corporate Giving Manager - Brother and [id number] Hx From Patient Unobtainable Due To: Other - LEVEL 5 CAVEAT - confusion Onset/Duration: Still Present Timing: Lasting Days Severity Currently: Moderate Character: Confusion Aggravating Factor(s): Nothing Alleviating Factor(s): Nothing Associated Signs And Symptoms: Negative: Fever Related History: Other: - hx of alcohol abuse, quit drinking alcohol "cold turkey" on 04/15/19 - Allergies/Home Medications Allergies/Adverse Reactions: Allergies Allergy/AdvReac Type Severity Reaction Status Date / Time No Known Allergies Allergy Verified 04/17/19 21:16 Home Medications: Home Medications Indapamide TAB* [Lozol TAB*] 1.25 mg PO DAILY 04/23/19 [History Confirmed ] Naltrexone TAB* 1 tab PO DAILY 04/23/19 [History Confirmed 11/25/19] PMH/Surg Hx/FS Hx/Imm Hx Endocrine/Hematology History: Denies: Hx Diabetes, Hx Thyroid Disease Cardiovascular History: Reports: Hx Hypertension Denies: Other Cardiovascular Problems/Disorders Respiratory History: Reports: Hx Chronic Obstructive Pulmonary Disease (COPD), Hx Sleep Apnea Denies: Hx Asthma, Other Respiratory Problems/Disorders GI History: Denies: Hx Ulcer Sensory History: Reports: Hx Contacts or Glasses - READING GLASSES Denies: Hx Hearing Aid Opthamlomology History: Reports: Hx Contacts or Glasses - READING GLASSES Psychiatric History: Reports: Hx Substance Abuse - Surgical History Surgical History: Yes Surgery Procedure, Year, and Place: Left wrist repair, 1999, [facility]. RIGHT HERNIA , 1987, LEFT HERNIA Hx Anesthesia Reactions: No Infectious Disease History: No Infectious Disease History: Denies: Hx Hepatitis, Hx Human Immunodeficiency Virus (HIV), History Other Infectious Disease, Traveled Outside the [place] in Last 30 Days - Family History Known Family History: Positive: Cardiac Disease, Diabetes, Other - mother with history of colon cancer - Social History Alcohol Use: Daily Alcohol Amount: 1/2 pint-1 pint blackberry wilfredo Hx Substance Use: No Substance Use Type: Reports: None Hx Tobacco Use: No Smoking Status (MU): Never Smoked Tobacco Have You Smoked in the Last Year: No Review of Systems - ROS Summary Review of Systems Summary: ROS IS LIMITED DUE TO LEVEL 5 CAVEAT - confusion Negative: Fever Positive: Shortness Of Breath Neurological: Other - POSITIVE: AMS, confusion, slurred speech All Other Systems Reviewed And Are Negative: No Physical Exam - Summary Physical Exam Summary: GENERAL: Patient is a well-developed and obese male who is lying comfortable in the stretcher. Patient is in no acute distress. Unable to get a good history from patient, history is obtained from brother and sister in law. HEAD AND FACE: No signs of trauma. No ecchymosis, hematomas or skull depressions. No sinus tenderness. EYES: PERRLA, EOMI x 2, No injected conjunctiva, no nystagmus. EARS: Hearing grossly intact. Ear canals and tympanic membranes are within normal limits. MOUTH: Oropharynx within normal limits. NECK: Supple, trachea is midline, no adenopathy, no JVD, no carotid bruit, no c- spine tenderness, neck with full ROM. CHEST: Symmetric, no tenderness at palpation LUNGS: Left lung with decreased breath sounds. CVS: Regular rate and rhythm, S1 and S2 present, no murmurs or gallops appreciated. ABDOMEN: Soft, non-tender, and obese. Decreased bowel sounds. No rebound no guarding, and no masses palpated. EXTREMITIES: FROM in all major joints, no edema, no cyanosis or clubbing. NEURO: Alert and confused. Speech is normal and follows commands. SKIN: Dry and warm GCS: 15 Triage Information Reviewed: Yes Vital Signs On Initial Exam: Initial Vitals Temp Pulse Resp BP Pulse Ox 99.3 F 97 18 112/86 82 04/23/19 19:44 04/23/19 19:44 04/23/19 19:44 04/23/19 19:44 04/23/19 19:44 Vital Signs Reviewed: Yes Completion Of Physical Exam Limited Due To: Level 5 - confusion Procedures - Sedation Patient Received Moderate/Deep Sedation with Procedure: No Diagnostics - Vital Signs Vital Signs Temp Pulse Resp BP Pulse Ox 04/23/19 19:44 99.3 F 97 18 112/86 82 - Laboratory Lab Results: Lab Results 04/23/19 Range/Units 20:24 WBC 10.3 (3.5-10.8) 10^3/uL RBC 4.24 (4.18-5.48) 10^6 /uL Hgb 13.9 L (14.0-18.0) g/dL Hct 41 L (42-52) % MCV 98 H (80-94) fL MCH 33 H (27-31) pg MCHC 34 (31-36) g/dL RDW 14 (10-15) % Plt Count 187 (150-450) 10^3/uL MPV 8.6 (7.4-10.4) fL Neut % (Auto) 82.2 % Lymph % (Auto) 9.1 % [place] % (Auto) 7.3 % Eos % (Auto) 0.7 % Baso % (Auto) 0.7 % Absolute Neuts (auto) 8.5 H (1.5-7.7) 10^3/ul Absolute Lymphs (auto) 0.9 L (1.0-4.8) 10^3/ul Absolute Monos (auto) 0.8 (0-0.8) 10^3/ul Absolute Eos (auto) 0.1 (0-0.6) 10^3/ul Absolute Basos (auto) 0.1 (0-0.2) 10^3/ul Absolute Nucleated RBC 0.0 10^3/ul Nucleated RBC % 0.0 Result Diagrams: 04/23/19 20:24 04/24/19 03:58 Lab Statement: Any lab studies that have been ordered have been reviewed, and results considered in the medical decision making process. - Radiology Chest XR Radiology Interpretation Completed By: ED Physician Summary of Radiographic Findings: Left diaphragmatic hernia. Similar to prior CXR on 04/17/19 IMPRESSION: Hypoinflation of the left lung with elevation of left hemidiaphragm. No focal airspace opacification is identified. - CT Brain CT CT Interpretation Completed By: Radiologist Summary of CT Findings: IMPRESSION: 1. No acute intracranial abnormality. 2. Mild chronic small vessel ischemic disease. Dr. Pleitez has reviewed this report. - EKG 20:55 Cardiac Rate: NL - at 93 bpm EKG Rhythm: Sinus Rhythm Summary of EKG Findings: EKG at 20:55 shows normal sinus rhythm at a rate of [address] elevations or depressions. Normal axis. LVH. Re-Evaluation - Re-Evaluation First Eval Re-Evaluation Time: 21:20 Comment: Poison control was called by the ED nurse. They recommend medical management and checking for dehydration, as well as possibly hypoxia causing the pt's confusion. Altered Mental Statu Course/Dx - Course Assessment/Plan: This patient is a 63-year-old male with a past medical history of hypertension, dyslipidemia and chronic left diaphragmatic hernia. He presents to the emergency room with family members reporting that the patient has been confused for the last couple days. Patient reports that he is an alcoholic and he hasnt been drinking for at least 7 days, however family members report that he might had been drinking on the weekend but they are unclear. This patient is only complaining of shortness of breath however he is confused and unable to give a good history. EKG shows a normal sinus rhythm without any ST elevations. Chest x-ray impression: unchanged hypoinflation of the left lung with elevation of the left hemidiaphragm. No focal airspace opacification is identified. Blood test results without any significant abnormality except for slight anemia with a hemoglobin 13.9, hematocrit 41, chloride 100, carbon dioxide of 34, BUN is 30 and creatinine 2.6 possibly secondary to dehydration, glucose is 204, and troponin is 0.2. Head CT impression: No acute intracranial pathology. Patient was given an aspirin since his troponin is elevated. I discussed the case with Dr. Belcher from the hospitalist services and accepted the patient for admission. Patient is alert but not oriented and hemodynamically stable. - Diagnoses Differential Diagnosis/HQI/PQRI: CVA, Hypoglycemia, Hypoxia, Intracranial Bleed , Medication Reaction, Metabolic Disorder, Overdose, Seizure, TIA Provider Diagnoses: AMS (altered mental status), Acute renal failure, Troponin level elevated - Provider Notifications Discussed Care Of Patient With: Nelli Belcher - hospitalist Time Discussed With Above Provider: 21:25 Instructed by Provider To: Admit As Inpatient Discharge ED - Sign-Out/Discharge Documenting (check all that apply): Patient Departure - Admit to [facility] [place] - Discharge Plan Condition: Stable Disposition: ADMITTED TO [facility] - Billing Disposition and Condition Condition: STABLE Disposition: Admitted to [facility] - Attestation Statements Document Initiated by Scribe: Yes Documenting Scribe: Philly Avila Provider For Whom Becky is Documenting (Include Credential): Liam Pleitez MD Scribe Attestation: [place], scribed for Liam Pleitez MD on 04/24/19 at 0827. Scribe Documentation Reviewed: Yes Provider Attestation: The documentation as recorded by the Philly reyes accurately reflects the service I personally performed and the decisions made by me, Liam Pleitez MD Status of Scribe Document: Viewed
[2019-04-23 20:53] LABS: Alcohol < 10 mg/dL (<10)
[2019-04-23 20:57] LABS: Acetaminophen < 15 mcg/mL
[2019-04-23] MEDS ORDERED: NS 0.9% 1000 ML** 1,000 ML IV SCH (21:00)
[2019-04-23] MEDS ORDERED: Aspirin 81 mg CHEW TAB* 81 MG TAB.CHEW PO ONE (21:05)
[2019-04-23 21:09] LABS: TSH (Thyroid Stimulating Horm) 0.49 mcIU/mL (0.34-5.60)
[2019-04-23 21:23] LABS: Urine Appearance Clear; Urine Bilirubin Negative (Negative); Urine Blood Negative (Negative); Urine Color Yellow; Urine Glucose Negative (Negative); Urine Ketones Negative (Negative); Urine Nitrite Negative (Negative); Urine Protein Negative (Negative); Urine Specific Gravity 1.011 (1.010-1.030); Urine Urobilinogen Negative (Negative)
[2019-04-23 21:35] LABS: Urine Benzodiazepine Screen Presumptive Positive (None Detect); Urine Opiates Screen None Detected (None Detect)
[2019-04-23] MEDS ORDERED: Ondansetron INJ* 2 MG/ML VIAL IV PRN (22:22)
[2019-04-23] MEDS: NS 0.9% 1000 ML** 1,000 ML IV SCH (23:38)
[2019-04-24 00:18] LABS: Sodium 141 mmol/L (135-145)
[2019-04-24 00:24] LABS: Troponin I 0.18 ng/mL (<0.03)
--- NOTE | 2019-04-24 00:52 | HP ---
CC: Dr. Khan * HISTORY AND PHYSICAL: DATE OF ADMISSION: 04/23/19 PRIMARY CARE PROVIDER: Dr. Khan. CHIEF COMPLAINT: Altered mental status. HISTORY OF PRESENT ILLNESS: Mr. Rice is a 63-year-old male who has a history of alcoholism, obstructive sleep apnea - not treated, and hypertriglyceridemia who presented to the emergency room after his family found him very confused. On 04/17/19, the patient presented to the emergency room after quitting drinking alcohol what he states is cold turkey. He was prescribed Librium to take 3 times daily to get through the alcohol withdrawal symptoms. Additionally , he was prescribed naltrexone. The patient states that he has not been drinking since that time, though his family is suspicious that he actually was drinking. The patient is a not a reliable historian at this time. He does tell me, however, that taking these medications "messed him up." The patient's family also notes that since last week, the patient has had a mild left facial droop and slurred speech, which have gotten progressively worse. They also note that he has become much more confused and almost dazed appearing. Earlier this evening he did not know what day it was. 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 Other than the Librium and naltrexone, there have been no new medications. It was also noted during the ER visit on 04/17/19 , he desaturated and it was recommended that the patient follow up with his PCP to see if he needs oxygen with sleep. PAST MEDICAL HISTORY: 1. Chronically elevated left hemidiaphragm. 2. KEY - not treated. 3. Alcoholism. 4. Hypertriglyceridemia. PAST SURGICAL HISTORY: 1. Inguinal hernia repair - left. 2. ORIF, left scaphoid with distal radius bone graft. 3. Right inguinal hernia repair. MEDICATIONS: 1. Indapamide 1.25 mg p.o. daily. 2. Chlordiazepoxide 50 mg p.o. t.i.d. p.r.n. alcohol withdrawal symptoms. 3. Naltrexone 50 mg p.o. daily. 4. Losartan 25 mg p.o. daily. 5. Lipitor 40 mg p.o. daily. 6. Aspirin 81 mg p.o. daily. ALLERGIES: No known drug allergies. FAMILY HISTORY: According to the patient's brother, mom is living, she is 89, she has Alzheimer's, diabetes, and coronary artery disease; biologic father is , cause of is unknown. SOCIAL HISTORY: The patient does not smoke. He tells me that when he was drinking, he was drinking one half to 1 pint of hard liquor per day. 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 He states that his drinking has never impaired his ability to work. His brother tells me he last worked last week. The patient is able to clearly state that he would want his brother to be his healthcare proxy and that he would want to be a full code. The patient's brother corroborates these decisions. REVIEW OF SYSTEMS: As per HPI and otherwise not obtainable. PHYSICAL EXAMINATION GENERAL: The patient is a well-developed, middle-aged obese male seen lying relatively flat in the stretcher, in no acute distress. VITAL SIGNS: Blood pressure 115/69, pulse 93, respirations 16, temp 99.3, O2 sat 84% on 2 L. HEENT: Pupils are round. Extraocular muscles are intact. The patient's sclerae are injected. Oropharynx is clear. There are slightly tacky oral secretions. There is no submandibular, cervical, or supraclavicular adenopathy, though the patient's body habitus makes this a difficult exam. PULMONARY: Lungs are clear anteriorly. CARDIAC: Normal S1, S2. Heart rate is mildly tachycardic. It is regular. There is trace ankle edema bilaterally. ABDOMEN: Bowel sounds are present. Abdomen is moderately distended. It is tympanic to percussion. It is nontender. MUSCULOSKELETAL: The patient moves all 4 extremities symmetrically. NEURO: The patient has very flat affect at this point. Cranial nerves II through XII appear to be grossly intact, though there is a slight droop to the left corner of the mouth. Speech is moderately dysarthric. Strength of the upper extremities is 5/5 and symmetric bilaterally. Strength in the lower extremities is 5/5 on the right, perhaps 4+/5 on the left proximal and 5/5 on the left distal. PSYCH: The patient is confused. Again, flat affect, appearing dazed. SKIN: Warm and dry. The patient's face is flushed. There are no rashes. DIAGNOSTIC STUDIES/LAB DATA: Labs, WBC 10.3, hemoglobin 13.9, hematocrit 41, platelets 187. Sodium 140, potassium 4.5, chloride 100, CO2 34, BUN 30, creatinine 2.60, glucose 204. Lactic acid 1.5. Calcium 9.4. Magnesium 2.0. Bilirubin 0.4, AST 21, ALT 27, alk phos 90. Ammonia initially 53, up to 70. CPK 41. Troponin 0.20. Albumin 3.8. TSH 0.49. Urinalysis reveals a specific gravity of 1.011, otherwise negative for signs of infection. Urine drug screen is positive for benzodiazepines and otherwise negative, alcohol less than 10, acetaminophen less than 15. ABG 7.19/36/112. EKG reveals sinus tachycardia with no acute ST-T wave abnormalities. Chest x-ray to my interpretation reveals a chronically elevated left hemidiaphragm, right lung appears clear without infiltrate. CT brain, no acute intracranial abnormality, mild chronic small vessel ischemic changes noted. ASSESSMENT AND PLAN: Mr. Rice is a 63-year-old male with a history of alcoholism and obstructive sleep apnea who presented to the emergency room with complaints of altered mental status. 1. Altered mental status. At this point, the differential on this is broad. My leading suspicion is that this is a metabolic encephalopathy secondary to Librium use. Additionally, I am suspicious the Librium sedated the patient too much to lead to poor oral intake and because of this acute renal failure. Additionally, he has a significant metabolic acidosis with a pH of 7.19. His pCO2 is higher than I would anticipate with his pH being as low as it was. This is a non-anion gap metabolic acidosis. I question if this non-anion gap metabolic acidosis is secondary to his renal failure and a renal tubular acidosis. The patient's ammonia level is also elevated mildly at 73. For now, I am not going to treat this; however, we will follow up the level tomorrow morning and if higher, would initiate lactulose. 2. Elevated troponin. The patient has a mildly elevated troponin of 0.2. There are no reports of chest pain. A followup troponin will be obtained this evening. EKG will also be obtained at the same time. Transthoracic echocardiogram has been ordered. 3. Acute renal failure. I will send a urine sodium, urine creatinine to calculate a fractional excretion of sodium. A renal ultrasound has also been ordered to evaluate for obstructive uropathy. My suspicion, however, is the patient is prerenal. He will be receiving normal saline at 100 mL per hour. 4. Left facial droop and moderate dysarthria. This reportedly has been ongoing since last week. I have questioning whether or not the patient may have had a cerebrovascular accident. Nothing was reported on a CT brain. Therefore, we will pursue MRI of the brain. He is already on aspirin 81 mg p.o. daily and for now, this will be continued. Neuro checks will be obtained every 4 hours. 5. Obstructive sleep apnea. The patient very clearly desaturates with sleep. He dropped 73% on 3 L in the ER when he fell asleep. The patient will be admitted to the ICU for close monitoring given his severe metabolic acidosis and hypoxia. He may require BiPAP. 6. Hypertension. Blood pressure is under excellent control. He is going to have his losartan and indapamide held for now. If his blood pressure becomes markedly elevated, the indapamide could be added back; however, we would hold the losartan until his renal function normalizes. 7. Hyperlipidemia. The patient will continue on Lipitor 40 mg daily. 8. Alcoholism. The patient reportedly last drank on 04/17/19 or shortly there before. It is questionable whether or not he has been drinking at home. Given the possibility that he has been drinking, I am placing him on the [facility] protocol. 9. DVT prophylaxis: According to the Adult Thrombosis Prophylaxis Risk Factor Assessment Guide, the patient has a total risk factor score of 3, making him high risk. Lovenox 40 mg subcutaneous daily will be utilized as DVT prophylaxis. 10. Code status is full. TIME SPENT: 65 minutes was spent admitting this patient. [id number]/[facility] #: [id number] VINCE
[2019-04-24] MEDS ORDERED: Succinylcholine* 20 MG/ML 10 ML VIAL ONE (03:41)
[2019-04-24] MEDS ORDERED: Propofol* 100 ML ONE (03:47)
[2019-04-24] MEDS ORDERED: Etomidate* 2 MG/ML 20 ML VIAL (40 MG) ONE (03:50)
--- NOTE | 2019-04-24 03:55 | PN ---
Progress Note - Progress Note Date of Service: 04/24/19 Note: Upon arrival to the ICU from the ED, the patient was saturating only 88% on 10L. He was subsequently started on BiPAP. I was contacted by nursing that his O2 sat was dipping into the 80's but hovering around 91% on BiPAP with an FiO2 of 100%. ABG was obtained and revealed a pH of 7.13 (worse than prior) with a pCO2 103. I asked Dr. Garcia to intubate the patient. He was successfully intubated on the first try by Dr. Garcia via glide scope. I spoke with the patient's brother prior to intubation and he agreed.
[2019-04-24] MEDS: Propofol* 100 ML IV SCH ×2 (04:00→18:05)
[2019-04-24 04:23] LABS: BUN/Creatinine Ratio 13.3 (8-20); Calcium 9.2 mg/dL (8.6-10.3); EGFR African American 37.4 (>60); EGFR Non-African American 30.9 (>60)
[2019-04-24 04:47] LABS: Potassium 5.3 mmol/L (3.5-5.0)
[2019-04-24 04:48] LABS: Urine Appearance Clear; Urine Bilirubin Negative (Negative); Urine Blood Negative (Negative); Urine Color Yellow; Urine Glucose Negative (Negative); Urine Ketones Negative (Negative); Urine Nitrite Negative (Negative); Urine Protein Negative (Negative); Urine Urobilinogen Negative (Negative)
[2019-04-24] MEDS: Dexmedetomidine* 1,000 MCG in NS 0.9% 250 ML* 240 ML IV SCH (05:30)
--- NOTE | 2019-04-24 05:44 | PROCNOTE ---
- Assessment for Patient Restraint Evaluation of the Patient's Immediate Situation: Pt was recently intubated for hypercarbic respiratory failure. His blood pressure is not allowing for adequate sedation with propofol. Trialling precedex to sedate the patient. In the meantime the patient is moving both arms and reaching for the ET tube. Self extubation would be detrimental to the patient's health. Patient's Reaction to Intervention: Pt to be placed in soft wrist restraints bilaterally. Will adjust precedex drip to improve sedation/patient comfort. Patient's Medication and Behavioral Condition: Safety monitor in place temporarily while awake and reaching for ET tube.
[2019-04-24] MEDS: Chlorhexidine MOUTHWASH 0.12%* 15 ML UDC TOPICAL SCH ×5 (05:52→20:25)
[2019-04-24] MEDS: Pantoprazole IV* 40 MG IV SCH (05:53)
[2019-04-24] MEDS ORDERED: NS 0.9% 1000 ML** 1,000 ML IV ONE (06:15)
[2019-04-24] MEDS ORDERED: Perflutren Lipid Microsphere* 3 ML VIAL ONE (08:05)
[2019-04-24] MEDS: Enoxaparin(*) 40 MG/0.4 ML SYR SUBCUT SCH (08:58)
[2019-04-24] MEDS: Aspirin EC TAB* 81 MG TAB.EC PO SCH (08:59)
[2019-04-24] MEDS: Atorvastatin* 40 MG TAB PO SCH (08:59)
[2019-04-24] MEDS ORDERED: Losartan TAB* 25 MG PO SCH (09:00)
--- NOTE | 2019-04-24 10:13 | ECHO ---
*[facility]* [place] [address] Fax #: [phone] Transthoracic Echocardiogram Patient: Dank Rice : 1955 Study Date: 04/24/2019 Age: 63 Gender: M HR: 67 bpm Height: 70 in /177.8 cm BSA: 2.22 m^2 Weight: 229.5 lb /104.3 kg BMI: 33 kg/m^2 *Reflector Driller And Deburrer: * Shannan Garcia [facility] *Referring Physician: * Nelli BelcherReading Physician: * Beck Scott MD Indications: Myocardial Infarction (new). History: Functional status: Not following treatment plan for sleep apnea. Risk factors: Hypertension. Diabetes mellitus. Dyslipidemia. ETOH abuse. Conclusions Summary: - Left ventricle: Systolic function is moderately reduced. The estimated ejection fraction is 30-35%. Moderate diffuse hypokinesis. - Right ventricle: Systolic function is moderately reduced. - Left atrium: The atrium is mildly dilated. - Mitral valve: There is trace regurgitation. - Aortic valve: There is no evidence of stenosis. There is no significant regurgitation. - Tricuspid valve: There is trace regurgitation. - Pericardium, extracardiac: There is no significant pericardial effusion. - Pulmonary arteries: Systolic pressure can not be accurately estimated. - Study data: No prior study is available for comparison. Study data: Transthoracic echocardiogram. Procedure: Transthoracic echocardiography was performed. Image quality was suboptimal. The study was technically limited due to restricted patient mobility and Patient on ventilator. Complete 2D, spectral Doppler, and color flow Doppler. Location: ICU Patient status: Inpatient. Patient room number: ICU-08. No prior study is available for comparison. Rhythm: Normal sinus rhythm. Findings Left ventricle: The cavity size is normal. Wall thickness is at the upper limits of normal. Systolic function is moderately reduced. The estimated ejection fraction is 30-35%. Moderate diffuse hypokinesis. Regional wall motion abnormalities: Hypokinesis of the entireinferolateral and inferior myocardium. Hypokinesis of the basalinferolateral myocardium. Hypokinesis of the apicalanterior and anterolateral myocardium. Doppler parameters are consistent with abnormal left ventricular relaxation (grade 1 diastolic dysfunction). Right ventricle: The cavity size is mildly to moderately dilated. Systolic function is moderately reduced. Left atrium: The atrium is mildly dilated. Right atrium: The atrium is mildly dilated. Mitral valve: The leaflets are mildly thickened. There is no evidence of stenosis. There is trace regurgitation. Aortic valve: The valve is trileaflet. The leaflets are mildly thickened. There is no evidence of stenosis. There is no significant regurgitation. Tricuspid valve: The leaflets are normal thickness. There is no evidence of stenosis. There is trace regurgitation. Pulmonic valve: The leaflets are normal thickness. There is no evidence of stenosis. There is trace regurgitation. Aorta: Aortic root: The aortic root is appears normal. Ascending aorta: The ascending aorta is appears normal. Aortic arch: The aortic arch is poorly visualized. Pericardium: A prominent pericardial fat pad is present. There is no significant pericardial effusion. Pulmonary arteries: The main pulmonary artery is normal-sized. Systolic pressure can not be accurately estimated. Systemic veins: Inferior vena cava: Not well visualized. Measurements Left ventricle Value Ref Right atrium Value Ref CHIDI, LAX 4.7 cm 4.2 - 5.8 SI dim, ES 4.8 cm 3.4 - 5.3 ESD, LAX (H) 4.2 cm 2.5 - 4.0 ML dim, ES, A4C (H) 4.9 cm 2.6 - 4.4 FS, LAX (L) 12 % 25 - 43 SI dim, ES, A4C 4.8 cm 3.4 - 5.3 PW, ED, LAX 1.0 cm 0.6 - 1.0 FS (L) 12 % 25 - 43 Aortic valve Value Ref PW, ED 1.0 cm 0.6 - 1.0 Kayley diam, ED 2.1 cm --------- PW/ID, ED 0.21 Peak v, S 1.07 m/sec --------- E', lat kayley, TDI (L) 8.2 cm/sec >=10.0 VTI, S 21.1 cm --- ------ E/e', lat kayley, 7 Mean grad, S 3.0 mm Hg ------ --- TDI Peak grad, S 5.0 mm Hg --------- E', med kayley, TDI (L) 6.2 cm/sec >=7.0 LVOT/AV, VTI ratio 0.66 --- ------ E/e', med kayley, 9 TDI Mitral valve Value Ref E', avg, TDI 7.2 cm/sec Peak E 0.54 m/sec ------ --- E/e', avg, TDI 8 <=14 Peak A 0.65 m/sec --- ------ Decel time 180 ms --------- LVOT Value Ref Peak E/A ratio 0.8 --------- Peak jose, S 0.7 m/sec VTI, S 14.0 cm Pulmonic valve Value Ref Mean grad, S 1 mm Hg Peak v, S 0.99 m/sec --------- Peak grad, S 4.0 mm Hg --------- Ventricular septum Value Ref IVS, ED 1.0 cm 0.6 - 1.0 Aortic root Value Ref Root diam 3.5 cm <4.3 Right ventricle Value Ref CHIDI, LAX 3.7 cm Ascending aorta Value Ref CHIDI minor ax, (H) 4.3 cm 1.9 - 3.5 AAo AP diam, S 3.0 cm --------- A4C mid Left atrium Value Ref AP dim, ES 3.70 cm 3.00 - 4.00 ML dim, A4C 4.6 cm SI dim, A4C 5.4 cm Vol/bsa, ES, 1-p (H) 45 ml/m^2 12 - 37 A4C Vol/bsa, ES, A/L (H) 38 ml/m^2 16 - 34 Legend: (L) and (H) miracle values outside specified reference range. Prepared and electronically signed by Beck Scott MD 04/24/2019 10:12
--- NOTE | 2019-04-24 12:05 | PN ---
Date of Service: 04/24/19 Critical Care Services: Events reviewed. Acute hypercapnic respiratory failure in setting of hyperammonemia, cardiomyopathy and alcohol detoxification. Vital Signs: Temp Pulse Resp BP SpO2 FiO2 36.9 C 64 20 103/77 99 100 04/24/19 08:00 04/24/19 10:00 04/24/19 10:00 04/24/19 09:45 04/24/19 10:00 04/24 08:00 Physical Exam: Gen: NAD, sedated HEENT: NCAT, PERRL, intubated Lungs: coarse entry bilat Cardiac: S1S2 regular Abdomen: soft, NT, ND, +BS Extremities: trace edema Neuro: sedated, moves ext Fluid Balance (Past 24 Hours): I= O= Net Intake & Output 04/22/19 04/23/19 04/24/19 04/25/19 06:59 06:59 06:59 06:59 Intake Total 689.6 70 Output Total 500 186 Balance 189.6 -116 Weight 110.5 kg 110.5 kg Intake: IV Fluids 647 NS 647 Medicated IV 42.6 Precedex 6.1 Propofol 36.5 NG Tube Irrigate Amount 70 Output: Urine 0 Hahn 500 186 Labs: Laboratory Results - last 24 hr 04/23/19 04/23/19 04/23/19 20:24 20:24 20:24 WBC 10.3 RBC 4.24 Hgb 13.9 L Hct 41 L MCV 98 H MCH 33 H MCHC 34 RDW 14 Plt Count 187 MPV 8.6 Neut % (Auto) 82.2 Lymph % (Auto) 9.1 Emmons % (Auto) 7.3 Eos % (Auto) 0.7 Baso % (Auto) 0.7 Absolute Neuts (auto) 8.5 H Absolute Lymphs (auto) 0.9 L Absolute Monos (auto) 0.8 Absolute Eos (auto) 0.1 Absolute Basos (auto) 0.1 Absolute Nucleated RBC 0.0 Nucleated RBC % 0.0 Patient Temperature ABG pH ABG pH (Temp Correct) ABG pCO2 ABG pCO2 (Temp Corrct ABG pO2 ABG pO2 (Temp Correct ABG HCO3 ABG O2 Saturation ABG Base Excess Respiration Rate O2 Delivery Device Ventilator Type Vent Mode FiO2 Inspiratory Time PEEP Pressure Support Pressure Control EPAP IPAP BiPAP Sodium 140 Potassium 4.5 Chloride 100 L Carbon Dioxide 34 H Anion Gap 6 BUN 30 H Creatinine 2.60 H Est GFR ( Amer) 30.5 Est GFR (Non-Af Amer) 25.2 BUN/Creatinine Ratio 11.5 Glucose 204 H Serum Osmolality Lactic Acid Calcium 9.4 Magnesium 2.0 Total Bilirubin 0.40 AST 21 ALT 27 Alkaline Phosphatase 90 Ammonia 53 Total Creatine Kinase 41 Troponin I 0.20 H* Total Protein 6.7 Albumin 3.8 Globulin 2.9 Albumin/Globulin Ratio 1.3 TSH 0.49 Urine Color Urine Appearance Urine pH Ur Specific [place] Urine Protein Urine Ketones Urine Blood Urine Nitrate Urine Bilirubin Urine Urobilinogen Ur Leukocyte Esterase Urine Glucose Urine Ascorbic Acid Urine Opiates Screen Acetaminophen < 15 Ur Barbiturates Screen Ur Phencyclidine Scrn Ur Amphetamines Screen U Benzodiazepines Scrn Urine Cocaine Screen U Cannabinoids Screen Serum Alcohol < 10 04/23/19 04/23/19 04/23/19 20:24 21:03 21:03 WBC RBC Hgb Hct MCV MCH MCHC RDW Plt Count MPV Neut % (Auto) Lymph % (Auto) Emmons % (Auto) Eos % (Auto) Baso % (Auto) Absolute Neuts (auto) Absolute Lymphs (auto) Absolute Monos (auto) Absolute Eos (auto) Absolute Basos (auto) Absolute Nucleated RBC Nucleated RBC % Patient Temperature ABG pH ABG pH (Temp Correct) ABG pCO2 ABG pCO2 (Temp Corrct ABG pO2 ABG pO2 (Temp Correct ABG HCO3 ABG O2 Saturation ABG Base Excess Respiration Rate O2 Delivery Device Ventilator Type Vent Mode FiO2 Inspiratory Time PEEP Pressure Support Pressure Control EPAP IPAP BiPAP Sodium Potassium Chloride Carbon Dioxide Anion Gap BUN Creatinine Est GFR ( Amer) Est GFR (Non-Af Amer) BUN/Creatinine Ratio Glucose Serum Osmolality Lactic Acid 1.5 Calcium Magnesium Total Bilirubin AST ALT Alkaline Phosphatase Ammonia Total Creatine Kinase Troponin I Total Protein Albumin Globulin Albumin/Globulin Ratio TSH Urine Color Yellow Urine Appearance Clear Urine pH 5.0 Ur Specific [place] 1.011 Urine Protein Negative Urine Ketones Negative Urine Blood Negative Urine Nitrate Negative Urine Bilirubin Negative Urine Urobilinogen Negative Ur Leukocyte Esterase Negative Urine Glucose Negative Urine Ascorbic Acid * A Urine Opiates Screen None detected Acetaminophen Ur Barbiturates Screen None detected Ur Phencyclidine Scrn None detected Ur Amphetamines Screen None detected U Benzodiazepines Scrn Presumptive positive A Urine Cocaine Screen None detected U Cannabinoids Screen None detected Serum Alcohol 04/23/19 04/23/19 04/23/19 21:35 22:03 23:53 WBC RBC Hgb Hct MCV MCH MCHC RDW Plt Count MPV Neut % (Auto) Lymph % (Auto) Emmons % (Auto) Eos % (Auto) Baso % (Auto) Absolute Neuts (auto) Absolute Lymphs (auto) Absolute Monos (auto) Absolute Eos (auto) Absolute Basos (auto) Absolute Nucleated RBC Nucleated RBC % Patient Temperature ABG pH 7.19 L* ABG pH (Temp Correct) ABG pCO2 36 ABG pCO2 (Temp Corrct ABG pO2 112 H ABG pO2 (Temp Correct ABG HCO3 14.4 L ABG O2 Saturation 99.9 H ABG Base Excess -13.5 L Respiration Rate O2 Delivery Device Ventilator Type Vent Mode FiO2 Inspiratory Time PEEP Pressure Support Pressure Control EPAP IPAP BiPAP Sodium 141 Potassium Chloride Carbon Dioxide Anion Gap BUN Creatinine Est GFR ( Amer) Est GFR (Non-Af Amer) BUN/Creatinine Ratio Glucose Serum Osmolality Lactic Acid Calcium Magnesium Total Bilirubin AST ALT Alkaline Phosphatase Ammonia 70 H Total Creatine Kinase Troponin I 0.18 H* Total Protein Albumin Globulin Albumin/Globulin Ratio TSH Urine Color Urine Appearance Urine pH Ur Specific [place] Urine Protein Urine Ketones Urine Blood Urine Nitrate Urine Bilirubin Urine Urobilinogen Ur Leukocyte Esterase Urine Glucose Urine Ascorbic Acid Urine Opiates Screen Acetaminophen Ur Barbiturates Screen Ur Phencyclidine Scrn Ur Amphetamines Screen U Benzodiazepines Scrn Urine Cocaine Screen U Cannabinoids Screen Serum Alcohol 04/24/19 04/24/19 04/24/19 03:16 03:58 03:58 WBC RBC Hgb Hct MCV MCH MCHC RDW Plt Count MPV Neut % (Auto) Lymph % (Auto) Emmons % (Auto) Eos % (Auto) Baso % (Auto) Absolute Neuts (auto) Absolute Lymphs (auto) Absolute Monos (auto) Absolute Eos (auto) Absolute Basos (auto) Absolute Nucleated RBC Nucleated RBC % Patient Temperature Not Reportable ABG pH 7.13 L* ABG pH (Temp Correct) Not Reportable ABG pCO2 103 H* ABG pCO2 (Temp Corrct Not Reportable ABG pO2 88 ABG pO2 (Temp Correct Not Reportable ABG HCO3 26.3 ABG O2 Saturation 98.0 ABG Base Excess 1.8 Respiration Rate Not Reportable O2 Delivery Device Bipap Ventilator Type Not Reportable Vent Mode Not Reportable FiO2 80 Inspiratory Time Not Reportable PEEP Not Reportable Pressure Support Not Reportable Pressure Control Not Reportable EPAP 5 IPAP 10 BiPAP Not Reportable Sodium 140 Potassium 5.3 H Chloride 104 Carbon Dioxide 31 Anion Gap 5 BUN 29 H Creatinine 2.18 H Est GFR ( Amer) 37.4 Est GFR (Non-Af Amer) 30.9 BUN/Creatinine Ratio 13.3 Glucose 200 H Serum Osmolality 311 H Lactic Acid Calcium 9.2 Magnesium Total Bilirubin AST ALT Alkaline Phosphatase Ammonia Total Creatine Kinase Troponin I Total Protein Albumin Globulin Albumin/Globulin Ratio TSH Urine Color Urine Appearance Urine pH Ur Specific [place] Urine Protein Urine Ketones Urine Blood Urine Nitrate Urine Bilirubin Urine Urobilinogen Ur Leukocyte Esterase Urine Glucose Urine Ascorbic Acid Urine Opiates Screen Acetaminophen Ur Barbiturates Screen Ur Phencyclidine Scrn Ur Amphetamines Screen U Benzodiazepines Scrn Urine Cocaine Screen U Cannabinoids Screen Serum Alcohol 04/24/19 04/24/19 04/24/19 03:58 04:10 05:26 WBC RBC Hgb Hct MCV MCH MCHC RDW Plt Count MPV Neut % (Auto) Lymph % (Auto) Emmons % (Auto) Eos % (Auto) Baso % (Auto) Absolute Neuts (auto) Absolute Lymphs (auto) Absolute Monos (auto) Absolute Eos (auto) Absolute Basos (auto) Absolute Nucleated RBC Nucleated RBC % Patient Temperature Not Reportable ABG pH 7.29 L ABG pH (Temp Correct) Not Reportable ABG pCO2 65 H ABG pCO2 (Temp Corrct Not Reportable ABG pO2 71 L ABG pO2 (Temp Correct Not Reportable ABG HCO3 27.0 ABG O2 Saturation 97.3 ABG Base Excess 2.8 H Respiration Rate 20 O2 Delivery Device vent Ventilator Type 500 Vent Mode Not Reportable FiO2 100 Inspiratory Time Not Reportable PEEP 5 Pressure Support Not Reportable Pressure Control Not Reportable EPAP Not Reportable IPAP Not Reportable BiPAP Not Reportable Sodium Potassium Chloride Carbon Dioxide Anion Gap BUN Creatinine Est GFR ( Amer) Est GFR (Non-Af Amer) BUN/Creatinine Ratio Glucose Serum Osmolality Lactic Acid Calcium Magnesium Total Bilirubin AST ALT Alkaline Phosphatase Ammonia 87 H Total Creatine Kinase Troponin I Total Protein Albumin Globulin Albumin/Globulin Ratio TSH Urine Color Yellow Urine Appearance Clear Urine pH 5.0 Ur Specific [place] 1.010 Urine Protein Negative Urine Ketones Negative Urine Blood Negative Urine Nitrate Negative Urine Bilirubin Negative Urine Urobilinogen Negative Ur Leukocyte Esterase Negative Urine Glucose Negative Urine Ascorbic Acid * A Urine Opiates Screen Acetaminophen Ur Barbiturates Screen Ur Phencyclidine Scrn Ur Amphetamines Screen U Benzodiazepines Scrn Urine Cocaine Screen U Cannabinoids Screen Serum Alcohol Studies: 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 CTH without acute intracranial abnormality. MRI pending. Nutrition: Will start TF. Impression: 63 y/o male alcoholic with acute hypercapnic respiratory failure in setting of hyperammonemia, cardiomyopathy and alcohol detoxification. Plan: Acute Hypercapnic Respiratory Failure - multifactorial, hepatic encephalopathy; new sedative (Librium); ETOH withdrawal and now ECHO revealing cardiomyopathy Hepatic encepahlopathy - clearly cirrhotic, no weir for the lactulose, will follow his ammonia and clinical course. Perhaps holding librium alone will help the liver catch up, diarrhea and metabolic acidosis not always helpful. Acute Kidney Injury - hydrate while we have the vent for insurance but this may be cardiorenal Cardiomyopathy - ECHO with biventricular dysfunction. Will recheck troponin, the very small leak thus far measured is not responsible for this ECHO and implies chronicity. Usual risk factor modification and ASA/statin/BB with subacute F/U from cardiology. May need cath. Neuro deficits - subtle deficits noted overnight, MRI just completed, will f/u. D/W family in detail at bedside. Critical Care Time: 40 minutes
[2019-04-24 13:58] LABS: Troponin I 0.11 ng/mL (<0.03)
[2019-04-24] MEDS ORDERED: Lorazepam PYXIS KEY PRN (21:59)
[2019-04-24] MEDS ORDERED: LORazepam INJ* 2 MG/ML 1 ML VIAL IV PUSH ONE (21:59)
[2019-04-24] MEDS ORDERED: Lorazepam PYXIS KEY ONE (22:01)
[2019-04-24] MEDS ORDERED: LORazepam INJ* 2 MG/ML 1 ML VIAL ONE (22:01)
[2019-04-24] MEDS: NS 0.9% 1000 ML** 1,000 ML IV SCH (22:22)
[2019-04-25] MEDS: Chlorhexidine MOUTHWASH 0.12%* 15 ML UDC TOPICAL SCH ×7 (01:10→23:40)
[2019-04-25] MEDS: Dexmedetomidine* 1,000 MCG in NS 0.9% 250 ML* 240 ML IV SCH ×2 (01:10→08:07)
[2019-04-25] MEDS: Propofol* 100 ML IV SCH ×7 (03:54→22:00)
[2019-04-25 06:16] LABS: Hematocrit 43 % (42-52); Mean Corpuscular HGB Conc 33 g/dL (31-36); Mean Corpuscular Hemoglobin 32 pg (27-31); Mean Corpuscular Volume 97 fL (80-94); Platelet Count 162 10^3/uL (150-450); Red Blood Count 4.37 10^6 /uL (4.18-5.48); Red Cell Distribution Width 14 % (10-15); White Blood Count 8.6 10^3/uL (3.5-10.8)
[2019-04-25 06:29] LABS: Albumin 3.2 g/dL (3.2-5.2); Albumin/Globulin Ratio 1.1 (1-3); BUN/Creatinine Ratio 16.8 (8-20); Calcium 8.6 mg/dL (8.6-10.3); EGFR African American 45.5 (>60); EGFR Non-African American 37.6 (>60); Globulin 2.9 g/dL (2-4); Magnesium 1.7 mg/dL (1.9-2.7); Phosphorus 1.9 mg/dL (2.5-5.0); Potassium 4.4 mmol/L (3.5-5.0); Total Bilirubin 0.7 mg/dL (0.2-1.0); Total Protein 6.1 g/dL (6.4-8.9)
[2019-04-25] MEDS: Enoxaparin(*) 40 MG/0.4 ML SYR SUBCUT SCH (08:01)
[2019-04-25] MEDS: NS 0.9% 1000 ML** 1,000 ML IV SCH ×2 (08:12→21:29)
[2019-04-25] MEDS: Atorvastatin* 40 MG TAB PO SCH (09:09)
[2019-04-25] MEDS: Aspirin EC TAB* 81 MG TAB.EC PO SCH (09:09)
[2019-04-25] MEDS: Pantoprazole IV* 40 MG IV SCH (09:10)
--- NOTE | 2019-04-25 12:36 | PN ---
Date of Service: 04/25/19 Critical Care Services: No events overnight. Vital Signs: Temp Pulse Resp BP SpO2 FiO2 37.8 C 74 20 122/66 96 40 04/25/19 11:00 04/25/19 11:00 04/25/19 10:54 04/25/19 11:00 04/25/19 11:00 04/25 11:11 Physical Exam: Gen: NAD HEENT: NCAT, PERRL Lungs: clear bilat Cardiac: S1S2 regular Abdomen: soft, NT, ND, +BS Extremities: no edema Neuro: sedated, moves ext. Fluid Balance (Past 24 Hours): I= O= Net Intake & Output 04/23/19 04/24/19 04/25/19 04/26/19 06:59 06:59 06:59 06:59 Intake Total 689.6 2481.0 Output Total 500 1038 343 Balance 189.6 1443.0 -343 Weight 110.5 kg 112.2 kg Intake: IV Fluids 647 2083 NS 647 2083 Medicated IV 42.6 328.0 Precedex 6.1 144.2 Propofol 36.5 183.8 NG Tube Irrigate Amount 70 Output: Urine 0 Hahn 500 1038 343 Labs: Laboratory Results - last 24 hr 04/23/19 04/24/19 04/25/19 20:24 13:00 05:55 WBC 8.6 RBC 4.37 Hgb 14.0 Hct 43 MCV 97 H MCH 32 H MCHC 33 RDW 14 Plt Count 162 MPV 9.0 Sodium Potassium Chloride Carbon Dioxide Anion Gap BUN Creatinine Est GFR ( Amer) Est GFR (Non-Af Amer) BUN/Creatinine Ratio Glucose Hemoglobin A1c 7.0 H Calcium Ionized Calcium Phosphorus Magnesium Total Bilirubin AST ALT Alkaline Phosphatase Ammonia Troponin I 0.11 H* Total Protein Albumin Globulin Albumin/Globulin Ratio 04/25/19 04/25/19 04/25/19 05:55 05:55 05:55 WBC RBC Hgb Hct MCV MCH MCHC RDW Plt Count MPV Sodium 143 Potassium 4.4 Chloride 107 Carbon Dioxide 29 Anion Gap 7 BUN 31 H Creatinine 1.84 H Est GFR ( Amer) 45.5 Est GFR (Non-Af Amer) 37.6 BUN/Creatinine Ratio 16.8 Glucose 122 H Hemoglobin A1c Calcium 8.6 Ionized Calcium 1.07 L Phosphorus 1.9 L Magnesium 1.7 L Total Bilirubin 0.70 AST 32 ALT 23 Alkaline Phosphatase 64 Ammonia 47 Troponin I Total Protein 6.1 L Albumin 3.2 Globulin 2.9 Albumin/Globulin Ratio 1.1 Nutrition: Start TF Impression: 63 y/o male presents with encephalopthy multifactorial in origin. Imaging negative, had jsut started on Librium to detox ETOH and found to be hyperammonemic and hypercapnic and ultimately intubated. Now stable on vent. Plan: Acute Hypercapnic Respiratory Failure - mutlifactorial, high congenital diaphragm, KEY, Librium, Detox, hypercapnia itself. Stable on ventilator at this time. Hepatic Encephalopathy - Ammonia down, improving. Will start TF today. MRI negative for any structural abnormality. ? Latent Diabetes -Hgb A1C is 7.0, will start Glucerna as TF. Cardiomyopathy - troponin low and not consistent with acute injury pattern to have caused his EF of 30-35. ASA and Statin for now. Awaiting improvement in renal indices, which is beginning, and liberation from the vent as well as recovery from his hepatic encephalopathy. Will need subacute cardiology evaluation and stress test at a minimum, possibly cath. PIETRO - Cr coming down nicely, positive balance 1400cc. GI/DVT prophylaxis on board and lytes being repleted. All the above D/W family in detail at bedside who voiced understanding and appreciation for the care. Critical Care Time: 40 minutes
[2019-04-25] MEDS ORDERED: Magnesium Sulfate 2 GM IV* 2 GM/50 ML BAG IVPB ONE (13:03)
[2019-04-25] MEDS ORDERED: Potassium Phosphate IV* 15 MMOLE in NS 0.9% 250 ML* 250 ML IVPB ONE (13:30)
[2019-04-25] MEDS ORDERED: Calcium Gluconate INJ* 2 GM in NS 0.9% 100 ML* 100 ML IV ONE (13:30)
[2019-04-26] MEDS: Propofol* 100 ML IV SCH ×3 (00:05→06:49)
[2019-04-26] MEDS: Chlorhexidine MOUTHWASH 0.12%* 15 ML UDC TOPICAL SCH ×3 (03:42→11:45)
[2019-04-26 05:00] LABS: Albumin 2.8 g/dL (3.2-5.2); Albumin/Globulin Ratio 1.1 (1-3); EGFR African American 66.1 (>60); EGFR Non-African American 54.7 (>60); Globulin 2.5 g/dL (2-4); Magnesium 1.6 mg/dL (1.9-2.7); Phosphorus 3.3 mg/dL (2.5-5.0); Potassium 3.7 mmol/L (3.5-5.0); Total Bilirubin 0.5 mg/dL (0.2-1.0); Total Protein 5.3 g/dL (6.4-8.9)
[2019-04-26] MEDS ORDERED: Magnesium Sulfate 2 GM IV* 2 GM/50 ML BAG IVPB ONE (05:32)
[2019-04-26] MEDS: Dexmedetomidine* 1,000 MCG in NS 0.9% 250 ML* 240 ML IV SCH ×2 (06:04→13:18)
[2019-04-26] MEDS: NS 0.9% 1000 ML** 1,000 ML IV SCH ×2 (07:12→17:52)
[2019-04-26] MEDS: Enoxaparin(*) 40 MG/0.4 ML SYR SUBCUT SCH (07:32)
[2019-04-26] MEDS: Aspirin EC TAB* 81 MG TAB.EC PO SCH (07:32)
[2019-04-26] MEDS: Atorvastatin* 40 MG TAB PO SCH (07:32)
[2019-04-26] MEDS: Pantoprazole IV* 40 MG IV SCH (07:33)
--- NOTE | 2019-04-26 12:51 | PN ---
Date of Service: 04/26/19 - [facility] note Critical Care Services: Pt seen and examined at bedside. No acute events o/n. Sedation was increased last night. Active Medications Generic Name Dose Route Start Last Admin Trade Name Kyaw PRN Reason Stop Dose Admin Aspirin 81 mg 04/24/19 09:00 04/26/19 07:32 Aspirin Ec Tab* PO 81 mg DAILY TALON Administration Atorvastatin Calcium 40 mg 04/24/19 09:00 04/26/19 07:32 Lipitor* PO 40 mg DAILY TALON Administration Enoxaparin Sodium 40 mg 04/24/19 08:00 04/26/19 07:32 Lovenox(*) SUBCUT 40 mg Q24H TALON Administration Sodium Chloride 1,000 mls @ 100 mls/hr 04/23/19 23:30 04/26/19 07:12 Ns 0.9% 1000 Ml IV 100 mls/hr PER RATE TALON Administration Dexmedetomidine HCl 1,000 mcg/ 250 mls @ 5.52 mls/hr 04/24/19 06:00 04/26/19 06:04 Sodium Chloride IV Not Given Q24H TALON Protocol 0.2 MCG/KG/HR Lorazepam 0 mg 04/23/19 22:33 Ativan Tab(*) PO Q2H PRN alcohol withdrawal Protocol Miscellaneous 1 ea 04/24/19 21:59 Ativan Pyxis Main N/A .ATIVAN IV MAIN PRN PYXIS MAIN Ondansetron HCl 4 mg 04/23/19 22:22 Zofran Inj* IV Q6H PRN NAUSEA Pantoprazole Sodium 40 mg 04/24/19 04:00 04/26/19 07:33 Protonix Iv* IV 40 mg 0900 TALON Administration Vital Signs: Temp Pulse Resp BP SpO2 FiO2 100.0 F 107 23 149/94 98 40 04/26/19 12:16 04/26/19 12:16 04/26/19 12:16 04/26/19 12:16 04/26/19 12:16 04/26 07:59 Physical Exam: Gen: Pt in NAD, appears drowsy HEENT: PERRLA Lungs: Dimnished air entry at bases Cardiac: S1, S2+ Abdomen: Obese, BS+ Extremities: Normal ROM Neuro: Drowsy, follows commands Skin: No rash Fluid Balance (Past 24 Hours): E=2493 O= 1718 Net 2357 Intake & Output 04/24/19 04/25/19 04/26/19 04/27/19 06:59 06:59 06:59 06:59 Intake Total 689.6 2481.0 4075 Output Total 500 1038 1718 658 Balance 189.6 1443.0 2357 -658 Weight 243 lb 9.773 oz 247 lb 5.738 oz 250 lb 14.177 oz Intake: IV Fluids 647 2082 2083 NS 647 2082 2083 IVPB 470 Calcium Gluconate 117 KPhos 273 NS 80 Medicated IV 42.6 328.0 756 Precedex 6.1 144.2 Propofol 36.5 183.8 756 Tube Feeding 765 NG Tube Irrigate Amount 70 Output: Urine 0 Hahn 500 1038 1718 658 Labs: Laboratory Results - last 24 hr 04/26/19 04/26/19 04/26/19 00:22 04:13 04:13 Sodium 142 Potassium 3.7 Chloride 109 Carbon Dioxide 27 Anion Gap 6 BUN 24 Creatinine 1.33 H Est GFR ( Amer) 66.1 Est GFR (Non-Af Amer) 54.7 BUN/Creatinine Ratio 18.0 Glucose 145 H POC Glucose (mg/dL) 163 H Calcium 8.0 L Ionized Calcium 1.09 L Phosphorus 3.3 Magnesium 1.6 L Total Bilirubin 0.50 AST 28 ALT 18 Alkaline Phosphatase 66 Ammonia Total Protein 5.3 L Albumin 2.8 L Globulin 2.5 Albumin/Globulin Ratio 1.1 04/26/19 04/26/19 04:13 12:24 Sodium Potassium Chloride Carbon Dioxide Anion Gap BUN Creatinine Est GFR ( Amer) Est GFR (Non-Af Amer) BUN/Creatinine Ratio Glucose POC Glucose (mg/dL) 167 H Calcium Ionized Calcium Phosphorus Magnesium Total Bilirubin AST ALT Alkaline Phosphatase Ammonia 40 Total Protein Albumin Globulin Albumin/Globulin Ratio Studies: CXR: LLL air space opacity Nutrition: NPO for now Impression: 63 y/o male presented with AMS- confusion. Pt with ETOH abuse, was trying to quit cold turkey recently, presented to hosp on 04/17/19 for possible ETOH withdrawl. He was prescribed Librium and Naltrexone. He continued to drink as per family. Pt noted to be having encephalopathy thought to be multifactorial in origin. Imaging negative, hyperammonemic and hypercapnic, ultimately intubated 05/24. Pt with improved mental status and resp status and was extubated on 04/26/19. 1. Hypercapnic resp failure- mutlifactorial- Librium, Detox, elevated diaphragm , KEY 2. Intubation and extubation 04/26 3.ETOH abuse, trying to quit recently on [facility] protocol 4. LLL PNA 5. ARF improving Plan: Neuro: Encephalopathy of unclear etiology, likely multifactorial. Pt extubated this am. Pt is drowsy, but responds appropriately to verbal stimuli. No agitation since extubation. Pt is on [facility] protocol for ETOH withdrawl. Ammonia normalized. Aspiration precautions. Resp: Intubated for hypercapnic resp failure, extubated this am. Pt on 10L, saturating around 95%. Pt with h/o KEY, has not been compliant with PAP therapy. Will place on BiPAP at night. Titrate FIO2 as tolerated. LLL PNA, low grade fever, had thick secretions when ETT was in. Will start on Rocephin and Zithromax. Will send sputum cx. CVS: Hemodynamically stable, BP slightly elevated post extubation- Withdrawl versus baseline hypertension. Will c/w precedex, will start home dose of Cozaar. GI: Tube feeds held for extubation. Will start feeds when more alert. c/w PPI for GI ppx Renal: UO good, ARF, improving. Calcium and magnesium being repleted. Haem: No issues. Endo: Bl sugars slightly elevated, will monitor Psychosocial: Family at bedside and were updated. Full code DVT px: Lovenox Critical Care Time: 45 min
[2019-04-26] MEDS: Azithromycin 500 mg/250 ml NS 500 MG/250 ML BAG IVPB SCH (13:38)
[2019-04-26] MEDS: Losartan TAB* 25 MG PO SCH (13:38)
[2019-04-26] MEDS: cefTRIAXone(*) 1 GM in NS 0.9% 50 ML* 50 ML IVPB SCH (13:38)
[2019-04-26] MEDS ORDERED: Albuterol/Ipratropium NEB.SOL* Albuterol 2.5 MG/Ipratropium 0.5 MG 3 ML ONE (15:02)
[2019-04-26] MEDS ORDERED: Metoprolol Tartrate IV* 1 MG/ML 5 ML VIAL ONE (15:21)
--- NOTE | 2019-04-26 15:54 | PN ---
Progress Note - Progress Note Date of Service: 04/26/19 - Proress note Note: Pt became tachypneic, tachycardic and hypertensive post extubation. Pt was placed on BiPAP. Pt also noted to be wheezing with prolonged exp phase. No significant change in mental status post extubation. Pt was placed on BiPAP Pt appeared to be more comfortable, resp rate slower. Pt pulling 450cc on BiPAP. Pt was also given 5mg metoprolol IV, tachycardia improved. Will obtain ABG Will monitor on BiPAP Will need re-intubation if he fails BiPAP Family updated at bedside.
[2019-04-26] MEDS ORDERED: Metoprolol Tartrate IV* 1 MG/ML 5 ML VIAL IV ONE (16:00)
--- NOTE | 2019-04-27 02:56 | PN ---
Progress Note - Progress Note Date of Service: 04/27/19 Note: At approx 1 AM pt was noted to have uneven pupils on RN eval. One evaluation bth conjunctiva are injected and there is also conjunctival edema. R pupil is at 2mm reactive to light, Left is 3-4 mm reactive to light Pt was just awaken for exam and is somnolent and on BIPAP, but able to follow simple commands and has equal handrgrip b/l, also withdraws to pain in b/l feet with equal strength. Pt denies pain during the eval. As per RN, pt's pupils were even on 04/26/19 poonam. Started neurochecks Q2H CT brain unremarkable
[2019-04-27 05:36] LABS: ABS Basophils 0.1 10^3/ul (0-0.2); ABS Eosinophils 0.2 10^3/ul (0-0.6); ABS Lymphocytes 1.2 10^3/ul (1.0-4.8); ABS Monocytes 1.2 10^3/ul (0-0.8); ABS Neutrophils 5.2 10^3/ul (1.5-7.7); Hematocrit 37 % (42-52); Hemoglobin 12.1 g/dL (14.0-18.0); Mean Corpuscular HGB Conc 33 g/dL (31-36); Mean Corpuscular Hemoglobin 32 pg (27-31); Mean Corpuscular Volume 98 fL (80-94); Mean Platelet Volume 8.8 fL (7.4-10.4); Platelet Count 182 10^3/uL (150-450); Red Blood Count 3.83 10^6 /uL (4.18-5.48); Red Cell Distribution Width 14 % (10-15); White Blood Count 7.8 10^3/uL (3.5-10.8)
[2019-04-27 05:48] LABS: BUN/Creatinine Ratio 15.7 (8-20); Calcium 8.2 mg/dL (8.6-10.3); EGFR African American 89.8 (>60); EGFR Non-African American 74.2 (>60); Potassium 4.6 mmol/L (3.5-5.0)
[2019-04-27] MEDS: NS 0.9% 1000 ML** 1,000 ML IV SCH ×2 (06:12→15:33)
[2019-04-27] MEDS: Dexmedetomidine* 1,000 MCG in NS 0.9% 250 ML* 240 ML IV SCH (07:46)
[2019-04-27] MEDS ORDERED: Albuterol/Ipratropium NEB.SOL* Albuterol 2.5 MG/Ipratropium 0.5 MG 3 ML ONE (07:57)
[2019-04-27] MEDS: Albuterol/Ipratropium NEB.SOL* Albuterol 2.5 MG/Ipratropium 0.5 MG 3 ML INH PRN (08:00)
[2019-04-27] MEDS: Atorvastatin* 40 MG TAB PO SCH (08:12)
[2019-04-27] MEDS: Aspirin EC TAB* 81 MG TAB.EC PO SCH (08:12)
[2019-04-27] MEDS: Losartan TAB* 25 MG PO SCH (08:12)
[2019-04-27] MEDS: Pantoprazole IV* 40 MG IV SCH (08:17)
[2019-04-27] MEDS: Enoxaparin(*) 40 MG/0.4 ML SYR SUBCUT SCH (08:21)
[2019-04-27] MEDS ORDERED: Artificial Tear OPHTH.OINT* 3.5 GM BOTH EYES PRN (10:35)
--- NOTE | 2019-04-27 11:31 | PN ---
Date of Service: 04/27/19 - [facility] note Critical Care Services: Pt seen and examined at bedside. Pt tolerated BiPAP well last night. Pt is more alert his morning, able to follow commands. Pt noted to have difference in pupillary sizes last night, they were reactive to light. CT of brain was negative. No focal findings on exam or mental status changes noted Active Medications Generic Name Dose Route Start Last Admin Trade Name Freq PRN Reason Stop Dose Admin Albuterol/Ipratropium 1 neb 04/27/19 07:59 04/27/19 08:00 Duoneb (Albuterol 2.5 Mg/Ipratropium 0.5 Mg) INH 1 neb Q4H PRN Administration SOB/WHEEZING Artificial Tears 1 applic 04/27/19 10:35 Lacrilube Oint* BOTH EYES Q4H PRN DRY EYE Aspirin 81 mg 04/24/19 09:00 04/27/19 08:12 Aspirin Ec Tab* PO 81 mg DAILY TALON Administration Atorvastatin Calcium 40 mg 04/24/19 09:00 04/27/19 08:12 Lipitor* PO 40 mg DAILY TALON Administration Enoxaparin Sodium 40 mg 04/24/19 08:00 04/27/19 08:21 Lovenox(*) SUBCUT 40 mg Q24H TALON Administration Sodium Chloride 1,000 mls @ 100 mls/hr 04/23/19 23:30 04/27/19 06:12 Ns 0.9% 1000 Ml IV 100 mls/hr PER RATE TALON Administration Ceftriaxone Sodium 1 gm/ 50 mls @ 100 mls/hr 04/26/19 13:30 04/26/19 13:38 Sodium Chloride IVPB 100 mls/hr Q24H TALON Administration Azithromycin 500 mg in 250 mls @ 250 mls/hr 04/26/19 14:00 04/26/19 13:38 Zithromax 500 Mg/250 Ml IVPB 04/28/19 23:59 250 mls/hr Q24H TALON Administration Latanoprost 1 drop 04/27/19 18:00 04/27/19 11:01 Xalatan 0.005%* BOTH EYES 1 drop QPM TALON Administration Protocol Lorazepam 0 mg 04/23/19 22:33 Ativan Tab(*) PO Q2H PRN alcohol withdrawal Protocol Losartan Potassium 25 mg 04/26/19 14:00 04/27/19 08:12 Cozaar Tab* PO 25 mg DAILY TALON Administration Miscellaneous 1 ea 04/24/19 21:59 Ativan Pyxis Main N/A .ATIVAN IV MAIN PRN PYXIS MAIN Pantoprazole Sodium 40 mg 04/24/19 04:00 04/27/19 08:17 Protonix Iv* IV 40 mg 0900 TALON Administration Vital Signs: Temp Pulse Resp BP SpO2 FiO2 98.2 F 81 18 132/80 97 50 04/27/19 08:00 04/27/19 08:00 04/27/19 08:00 04/27/19 08:00 04/27/19 08:00 04/27 08:00 Physical Exam: Gen: Pt in NAD HEENT: PERRLA, MP 4 airway Lungs: Diminished air entry at bases, wheeze+ Cardiac: S1, S2+ Abdomen: Soft, BS+ Extremities: Normal ROM, edema+ Neuro: More alert this am, responds appropriately, no focal deficits Skin: No rash Fluid Balance (Past 24 Hours): I= 2907 P=0931 Net 639 Intake & Output 04/25/19 04/26/19 04/27/19 04/28/19 06:59 06:59 06:59 06:59 Intake Total 2481.0 4075 2907.9 Output Total 1038 1718 2268 175 Balance 1443.0 2357 639.9 -175 Weight 247 lb 5.738 oz 250 lb 14.177 oz Intake: IV Fluids 2082 2083 2396.9 Mag Sulfate 60.9 NS 2082 2083 2336 IVPB 470 332 ABX 332 Calcium Gluconate 117 KPhos 273 NS 80 Medicated IV 328.0 756 179 Precedex 144.2 76 Propofol 183.8 756 103 Tube Feeding 765 NG Tube Irrigate Amount 70 Output: Hahn 1038 1713 2268 175 Labs: Laboratory Results - last 24 hr 04/26/19 04/26/19 04/26/19 12:24 15:55 20:45 WBC RBC Hgb Hct MCV MCH MCHC RDW Plt Count MPV Neut % (Auto) Lymph % (Auto) [place] % (Auto) Eos % (Auto) Baso % (Auto) Absolute Neuts (auto) Absolute Lymphs (auto) Absolute Monos (auto) Absolute Eos (auto) Absolute Basos (auto) Absolute Nucleated RBC Nucleated RBC % Patient Temperature Not Reportable Not Reportable ABG pH 7.35 7.36 ABG pH (Temp Correct) Not Reportable Not Reportable ABG pCO2 48 H 50 H ABG pCO2 (Temp Corrct Not Reportable Not Reportable ABG pO2 134 H 165 H ABG pO2 (Temp Correct Not Reportable Not Reportable ABG HCO3 25.2 26.4 ABG O2 Saturation 99.6 H 100.0 H ABG Base Excess 0.3 1.9 Respiration Rate 16 Not Reportable O2 Delivery Device Bipap Ventilator Type Not Reportable Not Reportable Vent Mode Not Reportable Not Reportable FiO2 100 80 Inspiratory Time Not Reportable Not Reportable PEEP Not Reportable Not Reportable Pressure Support Not Reportable Not Reportable Pressure Control Not Reportable Not Reportable EPAP 12 12 IPAP 20 20 BiPAP Not Reportable Not Reportable Sodium Potassium Chloride Carbon Dioxide Anion Gap BUN Creatinine Est GFR ( Amer) Est GFR (Non-Af Amer) BUN/Creatinine Ratio Glucose POC Glucose (mg/dL) 167 H Calcium Ammonia 04/27/19 04/27/19 04/27/19 05:21 05:21 05:21 WBC 7.8 RBC 3.83 L Hgb 12.1 L Hct 37 L MCV 98 H MCH 32 H MCHC 33 RDW 14 Plt Count 182 MPV 8.8 Neut % (Auto) 66.4 Lymph % (Auto) 16.0 [place] % (Auto) 14.8 Eos % (Auto) 2.0 Baso % (Auto) 0.8 Absolute Neuts (auto) 5.2 Absolute Lymphs (auto) 1.2 Absolute Monos (auto) 1.2 H Absolute Eos (auto) 0.2 Absolute Basos (auto) 0.1 Absolute Nucleated RBC 0.0 Nucleated RBC % 0.0 Patient Temperature ABG pH ABG pH (Temp Correct) ABG pCO2 ABG pCO2 (Temp Corrct ABG pO2 ABG pO2 (Temp Correct ABG HCO3 ABG O2 Saturation ABG Base Excess Respiration Rate O2 Delivery Device Ventilator Type Vent Mode FiO2 Inspiratory Time PEEP Pressure Support Pressure Control EPAP IPAP BiPAP Sodium 145 Potassium 4.6 Chloride 109 Carbon Dioxide 30 Anion Gap 6 BUN 16 Creatinine 1.02 Est GFR ( Amer) 89.8 Est GFR (Non-Af Amer) 74.2 BUN/Creatinine Ratio 15.7 Glucose 105 H POC Glucose (mg/dL) Calcium 8.2 L Ammonia 51 Nutrition: Soft diet Impression: 63 y/o male presented with AMS- confusion. Pt with ETOH abuse, was trying to quit cold turkey recently, presented to hosp on 04/17/19 for possible ETOH withdrawl. He was prescribed Librium and Naltrexone. He continued to drink as per family. Pt noted to be having encephalopathy thought to be multifactorial in origin. Imaging negative, hyperammonemic and hypercapnic, ultimately intubated 05/24. Pt with improved mental status and resp status and was extubated on 04/26/19. Pt had epidose of tachypnea, tachycardia, drowsiness and was placed on BiPAP that he tolerated last night. Pt changed to salter this am. 1. Hypercapnic resp failure- mutlifactorial- Librium, Detox, elevated diaphragm , KEY 2. Intubation and extubation 04/26 3.ETOH abuse, trying to quit recently on [facility] protocol 4. LLL PNA on abx 5. ARF improving Plan: Neuro: Encephalopathy of unclear etiology, likely multifactorial. Pt extubated 04/26/19. Pt required BiPAP post extubation. Pt less drowsy this am, able to follow commands appropriately. Anisocoria noted- sec to nebs versus inflammed sclera and pt not being able to open eye lids well. Ordered eye drops. No agitation since extubation. Pt is on [facility] protocol for ETOH withdrawl. Ammonia normalized. Aspiration precautions. Monitor neuro status closely. Resp: Intubated for hypercapnic resp failure, extubated 04/26/19. Pt on 10L, saturating around 95%. Hypercapnia and acidosis improved with BiPAP. Pt with h/ o KEY, has not been compliant with PAP therapy. c/w BiPAP at night and prn during day. Titrate FIO2 as tolerated. LLL PNA, has thick secretions. Will start on Rocephin and Zithromax day#2, will d/c if afebrile for 24 hrs. Has wheeze, c/w nebs prn. CVS: Hemodynamically stable, BP stable this am. D/william precedex, c/w Cozaar. GI: Pt passed bedside swallow eval. Will start soft diet and advance as tolerated. c/w PPI for GI ppx Renal: UO good, ARF, improving. No elctrolyte abnormalities noted today Haem: No issues. Endo: Bl sugars slightly elevated, will monitor Psychosocial: Family at bedside and were updated. Full code DVT px: Lovenox Critical Care Time: 45 min
[2019-04-27] MEDS: cefTRIAXone(*) 1 GM in NS 0.9% 50 ML* 50 ML IVPB SCH (14:22)
[2019-04-27] MEDS: Azithromycin 500 mg/250 ml NS 500 MG/250 ML BAG IVPB SCH (16:08)
[2019-04-27] MEDS: BRIMONIDINE 0.025% BOTH EYES SCH ×2 (16:25→22:00)
[2019-04-27] MEDS ORDERED: Latanoprost 0.005%* 2.5 ml BTL BOTH EYES SCH (18:00)
[2019-04-27] MEDS: LORazepam TAB(*) 0.5 MG PO PRN ×2 (20:07→22:15)
[2019-04-28] MEDS: NS 0.9% 1000 ML** 1,000 ML IV SCH ×2 (02:52→11:57)
[2019-04-28 04:58] LABS: Hematocrit 40 % (42-52); Hemoglobin 12.8 g/dL (14.0-18.0); Mean Corpuscular HGB Conc 32 g/dL (31-36); Mean Corpuscular Hemoglobin 31 pg (27-31); Mean Corpuscular Volume 98 fL (80-94); Platelet Count 213 10^3/uL (150-450); Red Blood Count 4.07 10^6 /uL (4.18-5.48); Red Cell Distribution Width 14 % (10-15); White Blood Count 7.4 10^3/uL (3.5-10.8)
[2019-04-28] MEDS ORDERED: LORazepam INJ* 2 MG/ML 1 ML VIAL IV PUSH SCH (05:00)
[2019-04-28 05:07] LABS: BUN/Creatinine Ratio 16.5 (8-20); Calcium 8.7 mg/dL (8.6-10.3); EGFR African American 110.9 (>60); EGFR Non-African American 91.6 (>60); Potassium 4.4 mmol/L (3.5-5.0)
[2019-04-28] MEDS: BRIMONIDINE 0.025% BOTH EYES SCH ×3 (10:09→21:24)
[2019-04-28] MEDS: Pantoprazole IV* 40 MG IV SCH (10:10)
[2019-04-28] MEDS: Enoxaparin(*) 40 MG/0.4 ML SYR SUBCUT SCH (10:10)
[2019-04-28] MEDS: Aspirin EC TAB* 81 MG TAB.EC PO SCH (10:14)
[2019-04-28] MEDS: Losartan TAB* 25 MG PO SCH (10:14)
[2019-04-28] MEDS: Atorvastatin* 40 MG TAB PO SCH (10:14)
[2019-04-28] MEDS ORDERED: Furosemide IV* 10 MG/ML VIAL (40 MG) IV SLOW PU ONE (10:39)
[2019-04-28] MEDS: Albuterol/Ipratropium NEB.SOL* Albuterol 2.5 MG/Ipratropium 0.5 MG 3 ML INH PRN (10:39)
[2019-04-28] MEDS: cefTRIAXone(*) 1 GM in NS 0.9% 50 ML* 50 ML IVPB SCH (13:29)
--- NOTE | 2019-04-28 14:14 | PN ---
Date of Service: 04/28/19 - [facility] note Critical Care Services: Pt seen and examined at bedside. Pt removed BiPAP after few hrs last night, early this am became agitated , restless, was given Ativan, he was later noted to be in reps distress, was placed on BiPAP that was removed again this morning. Pt became more drowsy this am, ABG showed hypercapnic acidosis and was placed on BiPAP. Pt with improvement in mental status since this am. Active Medications Generic Name Dose Route Start Last Admin Trade Name Freq PRN Reason Stop Dose Admin Albuterol/Ipratropium 1 neb 04/27/19 07:59 04/28/19 10:39 Duoneb (Albuterol 2.5 Mg/Ipratropium 0.5 Mg) INH 1 neb Q4H PRN Administration SOB/WHEEZING Artificial Tears 1 applic 04/27/19 10:35 Lacrilube Oint* BOTH EYES Q4H PRN DRY EYE Aspirin 81 mg 04/24/19 09:00 04/28/19 10:14 Aspirin Ec Tab* PO Not Given DAILY TALON Atorvastatin Calcium 40 mg 04/24/19 09:00 04/28/19 10:14 Lipitor* PO Not Given DAILY TALON Enoxaparin Sodium 40 mg 04/24/19 08:00 04/28/19 10:10 Lovenox(*) SUBCUT 40 mg Q24H TALON Administration Sodium Chloride 1,000 mls @ 100 mls/hr 04/23/19 23:30 04/28/19 11:57 Ns 0.9% 1000 Ml IV 100 mls/hr PER RATE TALON Administration Ceftriaxone Sodium 1 gm/ 50 mls @ 100 mls/hr 04/26/19 13:30 04/28/19 13:29 Sodium Chloride IVPB 100 mls/hr Q24H TALON Administration Azithromycin 500 mg in 250 mls @ 250 mls/hr 04/26/19 14:00 04/27/19 16:08 Zithromax 500 Mg/250 Ml IVPB 04/28/19 23:59 250 mls/hr Q24H TALON Administration Lorazepam 0 - 3 mg 04/28/19 05:00 04/28/19 04:11 Ativan Inj* IV PUSH 1.[address] [facility] PROTOCOL TALON Administration Protocol Losartan Potassium 25 mg 04/26/19 14:00 04/28/19 10:14 Cozaar Tab* PO Not Given DAILY TALON Miscellaneous 1 ea 04/24/19 21:59 Ativan Pyxis Main N/A .ATIVAN IV MAIN PRN PYXIS MAIN Pto:Brimonidine 0. 1 dose 04/27/19 15:30 04/28/19 10:09 025% 7.5 Ml Btl BOTH EYES 1 dose TID TALON Administration Pantoprazole Sodium 40 mg 04/24/19 04:00 04/28/19 10:10 Protonix Iv* IV 40 mg 0900 TALON Administration Vital Signs: Temp Pulse Resp BP SpO2 FiO2 99.1 F 84 15 120/70 97 50 04/28/19 13:01 04/28/19 13:01 04/28/19 13:01 04/28/19 13:01 04/28/19 13:01 04/28 12:00 Physical Exam: Gen: Pt in NAD HEENT: PERRLA, no JVD Lungs: rhonchi+, diminished air entry Cardiac: S1, S2+, regular Abdomen:Obese, BS+ Extremities: Normal ROM, trace edema+ Neuro: Pt is drowsy, follows commands, No focal deficits Skin: NO rash Fluid Balance (Past 24 Hours): K=1793 O= 3217 Net 186 Intake & Output 04/26/19 04/27/19 04/28/19 04/29/19 06:59 06:59 06:59 06:59 Intake Total 4075 2907.9 3403 Output Total 1718 2268 3217 2355 Balance 2357 639.9 186 -2355 Weight 250 lb 14.177 oz 251 lb 5.231 oz Intake: IV Fluids 2084 2396.9 2488 ABX 298 Mag Sulfate 60.9 NS 2084 2336 2190 IVPB 470 332 ABX 332 Calcium Gluconate 117 KPhos 273 NS 80 Medicated IV 756 179 Precedex 76 Propofol 756 103 Oral 530 Tube Feeding 765 Hahn Irrigate Amount 385 Output: Hahn 1718 2268 3217 2355 Labs: Laboratory Results - last 24 hr 04/28/19 04/28/19 04/28/19 04:13 04:13 10:44 WBC 7.4 RBC 4.07 L Hgb 12.8 L Hct 40 L MCV 98 H MCH 31 MCHC 32 RDW 14 Plt Count 213 MPV 9.0 Patient Temperature Not Reportable ABG pH 7.23 L ABG pH (Temp Correct) Not Reportable ABG pCO2 79 H* ABG pCO2 (Temp Corrct Not Reportable ABG pO2 92 ABG pO2 (Temp Correct Not Reportable ABG HCO3 27.7 ABG O2 Saturation 98.3 H ABG Base Excess 3.6 H Respiration Rate 16 O2 Delivery Device bipap Ventilator Type Not Reportable Vent Mode s/t FiO2 50 Inspiratory Time Not Reportable PEEP Not Reportable Pressure Support Not Reportable Pressure Control Not Reportable EPAP 10 IPAP 20 BiPAP Not Reportable Sodium 144 Potassium 4.4 Chloride 107 Carbon Dioxide 32 Anion Gap 5 BUN 14 Creatinine 0.85 Est GFR ( Amer) 110.9 Est GFR (Non-Af Amer) 91.6 BUN/Creatinine Ratio 16.5 Glucose 129 H Calcium 8.7 Impression: 63 y/o male presented with AMS- confusion. Pt with ETOH abuse, was trying to quit cold turkey recently, presented to hosp on 04/17/19 for possible ETOH withdrawl. He was prescribed Librium and Naltrexone. He continued to drink as per family. Pt noted to be having encephalopathy thought to be multifactorial in origin. Imaging negative, hyperammonemic and hypercapnic, ultimately intubated 05/24. Pt with improved mental status and resp status and was extubated on 04/26/19. Pt had episode of tachypnea, tachycardia, drowsiness and was placed on BiPAP that he tolerated last night. Pt had not been compliant with BiPAP last night and was more drowsy and lethargic this am. Pt was noted to have worsening hypercapnia and was placed on BiPAP. Pt with slight improvement in mental status since. 1. Hypercapnic resp failure- mutlifactorial- Librium, Detox, elevated diaphragm , untreated KEY/OHS 2. Intubation and extubation 04/26 3.ETOH abuse, trying to quit recently on [facility] protocol 4. LLL PNA on abx 5. ARF improving Plan: Neuro: Encephalopathy of unclear etiology, likely multifactorial. Pt extubated 04/26/19. Pt required BiPAP post extubation. Pt drowsy again this am, likely secondary to worsening hypercapnia from not using BiPAP enough last night. Pt is on [facility] protocol for ETOH withdrawl. Ammonia normalized. Aspiration precautions. Monitor neuro status closely. Resp: Intubated for hypercapnic resp failure, extubated 04/26/19. Pt on BiPAP, saturating around 96%. Will need BiPAP all night and prn during the day. Pt with h/o KEY, has not been compliant with PAP therapy. Titrate FIO2 as tolerated. LLL PNA, has thick secretions. Will start on Rocephin and Zithromax day#3, has wheeze, c/w nebs prn. CVS: Hemodynamically stable, BP stable this am. D/william precedex, c/w Cozaar. GI: Will place pt on NPO given AMS. c/w PPI for GI ppx Renal: UO good, ARF, improving. No elctrolyte abnormalities noted today Haem: No issues. Endo: Bl sugars slightly elevated, will monitor Psychosocial: Pts brother at bedside and was updated. Discussed over phone with his other brother Full code DVT px: Lovenox Critical Care Time: 45 min
[2019-04-28] MEDS: Azithromycin 500 mg/250 ml NS 500 MG/250 ML BAG IVPB SCH (15:15)
[2019-04-29] MEDS: NS 0.9% 1000 ML** 1,000 ML IV SCH ×2 (01:57→10:17)
[2019-04-29] MEDS ORDERED: Thiamine INJ* 100 MG/ML 2 ML VIAL IV ONE (08:02)
[2019-04-29] MEDS ORDERED: Thiamine IV 100 MG in NS 0.9% 50 ML Q24H IV ONE (08:30)
--- NOTE | 2019-04-29 08:42 | PN ---
Date of Service: 04/29/19 - [facility] note Critical Care Services: Pt seen and examined at bedside. Overnight events noted. Pt removed BiPAP, was later noted to be more confused and with hallucinations. Ativan was administered. Pt placed back on BiPAP this am and appears comfortable. Active Medications Generic Name Dose Route Start Last Admin Trade Name Freq PRN Reason Stop Dose Admin Albuterol/Ipratropium 1 neb 04/27/19 07:59 04/28/19 10:39 Duoneb (Albuterol 2.5 Mg/Ipratropium 0.5 Mg) INH 1 neb Q4H PRN Administration SOB/WHEEZING Artificial Tears 1 applic 04/27/19 10:35 Lacrilube Oint* BOTH EYES Q4H PRN DRY EYE Aspirin 81 mg 04/24/19 09:00 04/28/19 10:14 Aspirin Ec Tab* PO Not Given DAILY TALON Atorvastatin Calcium 40 mg 04/24/19 09:00 04/28/19 10:14 Lipitor* PO Not Given DAILY TALON Enoxaparin Sodium 40 mg 04/24/19 08:00 04/28/19 10:10 Lovenox(*) SUBCUT 40 mg Q24H TALON Administration Sodium Chloride 1,000 mls @ 100 mls/hr 04/23/19 23:30 04/29/19 01:57 Ns 0.9% 1000 Ml IV 100 mls/hr PER RATE TALON Administration Ceftriaxone Sodium 1 gm/ 50 mls @ 100 mls/hr 04/26/19 13:30 04/28/19 13:29 Sodium Chloride IVPB 100 mls/hr Q24H TALON Administration Thiamine HCl 100 mg/ Sodium 51 mls @ 102 mls/hr 04/29/19 08:30 Chloride IV 04/29/19 08:59 ONCE ONE Folic Acid 1 mg/ Sodium 50.2 mls @ 200.8 mls/hr 04/29/19 09:00 Chloride IVPB DAILY TALON Lorazepam 0 - 3 mg 04/28/19 05:00 04/28/19 04:11 Ativan Inj* IV PUSH 1.5 mg .PER [facility] PROTOCOL TALON Administration Protocol Losartan Potassium 25 mg 04/26/19 14:00 04/28/19 10:14 Cozaar Tab* PO Not Given DAILY TALON Miscellaneous 1 ea 04/24/19 21:59 Ativan Pyxis Main N/A .ATIVAN IV MAIN PRN PYXIS MAIN Pto:Brimonidine 0. 1 dose 04/27/19 15:30 04/28/19 21:24 025% 7.5 Ml Btl BOTH EYES 1 dose TID TALON Administration Pantoprazole Sodium 40 mg 04/24/19 04:00 04/28/19 10:10 Protonix Iv* IV 40 mg 0900 TALON Administration Vital Signs: Temp Pulse Resp BP SpO2 FiO2 99.3 F 93 16 139/70 94 45 04/29/19 07:01 04/29/19 07:01 04/29/19 07:33 04/29/19 07:01 04/29/19 07:01 04/29 07:07 Physical Exam: Gen: Pt on BiPAP, opens eyes to verbal stimuli, able to follow commands. Pt is completely oriented at times and confused other times HEENT: PERRLA Lungs: Distant breath sounds, no wheeze Cardiac: S1, S2+ Abdomen: Obese, BS+ Extremities: race edema+, normal ROM Neuro: Drowsy, opens eyes and follows commands, orientedX3 Skin: No rash Fluid Balance (Past 24 Hours): I= 2232 O= 4765 Net -2533 Intake & Output 04/27/19 04/28/19 04/29/19 04/30/19 06:59 06:59 06:59 06:59 Intake Total 2907.9 3403 2232 Output Total 2268 3217 4765 200 Balance 639.9 186 -2533 -200 Weight 251 lb 5.231 oz 244 lb 0.827 oz Intake: IV Fluids 2396.9 2488 1300 ABX 298 Mag Sulfate 60.9 NS 2336 2190 1300 IVPB 332 812 ABX 332 59 NS 753 Medicated IV 179 Precedex 76 Propofol 103 Oral 530 120 Hahn Irrigate Amount 385 Output: Urine 910 Hahn 2268 3217 3855 200 Labs: Laboratory Results - last 24 hr 04/28/19 04/28/19 04:13 10:44 Patient Temperature Not Reportable ABG pH 7.23 L ABG pH (Temp Correct) Not Reportable ABG pCO2 79 H* ABG pCO2 (Temp Corrct Not Reportable ABG pO2 92 ABG pO2 (Temp Correct Not Reportable ABG HCO3 27.7 ABG O2 Saturation 98.3 H ABG Base Excess 3.6 H Respiration Rate 16 O2 Delivery Device bipap Ventilator Type Not Reportable Vent Mode s/t FiO2 50 Inspiratory Time Not Reportable PEEP Not Reportable Pressure Support Not Reportable Pressure Control Not Reportable EPAP 10 IPAP 20 BiPAP Not Reportable Sodium 144 Potassium 4.4 Chloride 107 Carbon Dioxide 32 Anion Gap 5 BUN 14 Creatinine 0.85 Est GFR ( Amer) 110.9 Est GFR (Non-Af Amer) 91.6 BUN/Creatinine Ratio 16.5 Glucose 129 H Calcium 8.7 Studies: CXR 04/29- pending Nutrition: NPO given concern with aspiration Impression: 63 y/o male presented with AMS- confusion. Pt with ETOH abuse, was trying to quit cold turkey recently, presented to hosp on 04/17/19 for possible ETOH withdrawl. He was prescribed Librium and Naltrexone. He continued to drink as per family. Pt noted to be having encephalopathy thought to be multifactorial in origin. Imaging negative, hyperammonemic and hypercapnic, ultimately intubated 05/24. Pt with improved mental status and resp status and was extubated on 04/26/19. Pt had episode of tachypnea, tachycardia, drowsiness and was placed on BiPAP that he tolerates well with improvement in mental status. Pt had not been compliant with BiPAP last night and was became drowsy. As per nursing documentation he was also noted to be having hallucinations early this am. Pt however is oriented completely. 1. Hypercapnic resp failure- mutlifactorial- Librium, Detox, elevated diaphragm , untreated KEY/OHS 2. Intubation and extubation 04/26 3.ETOH abuse, trying to quit recently on [facility] protocol 4. LLL PNA on abx 5. ARF improving Plan: Neuro: Encephalopathy of unclear etiology, likely multifactorial. Pt gets completely oriented however becomes drowsy and noted to be having hallucinations this am. Too late for it be DTs. Hypercapnia might be reason for drowsiness. He has been requiring BiPAP for longer period of time to recover each time the episodes occur. CT brain with no abnormality. Will obtain EEG to evaluate for seizures. Pt is on [facility] protocol for ETOH withdrawl, has received Ativan last night. Ammonia normalized. Aspiration precautions. Monitor neuro status closely. Will obtain neurology consultation. Resp: Intubated for hypercapnic resp failure, extubated 04/26/19. Pt on BiPAP, saturating around 96%. Will need BiPAP all night, however he refuses during night and becomes more drowsy after Ativan he has been receiving for agitation/ withdrawl sx. Hypercapnic resp failure improved with BiPAP. Pt with h/o KEY/OHS , has not been compliant with PAP therapy. Titrate FIO2 as tolerated. Elevated left hemidiaphragm which is chronic, ? LLL PNA, has thick secretions. Will rpt CXR. c/w Rocephin day#4, completed Zithromax , wheeze resolved, c/w nebs prn. CVS: Hemodynamically stable, BP stable this am. D/william precedex, c/w Cozaar. ID: Low grade fever, septic w/u negative to date. c/w Rocephin, will d/c if remains afebrile for 24 hrs. GI: Will place pt on NPO given AMS. c/w PPI for GI ppx. No issues with swallowing when he is alert and awake Renal: UO good, ARF, resolved. Received dose of Lasix yesterday. Will rpt labs this am Haem: No issues. Endo: Bl sugars slightly elevated, will monitor Psychosocial: Pts brother at bedside and was updated. Full code DVT px: Lovenox Critical Care Time: 45 min
[2019-04-29] MEDS ORDERED: Folic Acid IV* 1 MG/0.2 ML SYRINGE IV SCH (09:00)
[2019-04-29] MEDS: Atorvastatin* 40 MG TAB PO SCH (09:01)
[2019-04-29] MEDS: Aspirin EC TAB* 81 MG TAB.EC PO SCH (09:01)
[2019-04-29] MEDS: Losartan TAB* 25 MG PO SCH (09:01)
[2019-04-29] MEDS: Pantoprazole IV* 40 MG IV SCH (09:05)
[2019-04-29] MEDS: Enoxaparin(*) 40 MG/0.4 ML SYR SUBCUT SCH (09:05)
[2019-04-29] MEDS: Folic Acid IV* 1 MG in NS 0.9% 50 ML* 50 ML IVPB SCH (09:05)
[2019-04-29 09:24] LABS: Magnesium 1.2 mg/dL (1.9-2.7)
[2019-04-29 09:45] LABS: ABS Basophils 0.1 10^3/ul (0-0.2); ABS Eosinophils 0.2 10^3/ul (0-0.6); ABS Lymphocytes 0.8 10^3/ul (1.0-4.8); ABS Monocytes 0.9 10^3/ul (0-0.8); ABS Neutrophils 5.5 10^3/ul (1.5-7.7); Eosinophil % 2.2 %; Hematocrit 38 % (42-52); Hemoglobin 12.5 g/dL (14.0-18.0); Lymphocyte % 10.5 %; Mean Corpuscular HGB Conc 33 g/dL (31-36); Mean Corpuscular Hemoglobin 32 pg (27-31); Mean Corpuscular Volume 96 fL (80-94); Mean Platelet Volume 8.3 fL (7.4-10.4); Platelet Count 221 10^3/uL (150-450); Red Blood Count 3.92 10^6 /uL (4.18-5.48); Red Cell Distribution Width 14 % (10-15); White Blood Count 7.4 10^3/uL (3.5-10.8)
[2019-04-29 10:01] LABS: BUN/Creatinine Ratio 21.3 (8-20); Calcium 8.8 mg/dL (8.6-10.3); EGFR African American 128.1 (>60); EGFR Non-African American 105.9 (>60); Magnesium 1.2 mg/dL (1.9-2.7); Potassium 4.2 mmol/L (3.5-5.0)
[2019-04-29] MEDS: BRIMONIDINE 0.025% BOTH EYES SCH ×3 (10:18→20:22)
[2019-04-29] MEDS ORDERED: Magnesium Sulfate IV* 3 GM in NS 0.9% 100 ML* 100 ML IVPB ONE (10:38)
[2019-04-29] MEDS: Lactated Ringers 1000 ML Bag* 1,000 ML IV SCH ×2 (14:00→20:47)
[2019-04-29] MEDS: cefTRIAXone(*) 1 GM in NS 0.9% 50 ML* 50 ML IVPB SCH (14:00)
[2019-04-30] MEDS: Lactated Ringers 1000 ML Bag* 1,000 ML IV SCH (03:12)
[2019-04-30 06:12] LABS: ABS Basophils 0.1 10^3/ul (0-0.2); ABS Eosinophils 0.3 10^3/ul (0-0.6); ABS Monocytes 0.9 10^3/ul (0-0.8); ABS Neutrophils 5.2 10^3/ul (1.5-7.7); Eosinophil % 3.7 %; Hematocrit 37 % (42-52); Hemoglobin 12.2 g/dL (14.0-18.0); Lymphocyte % 13.6 %; Mean Corpuscular HGB Conc 33 g/dL (31-36); Mean Corpuscular Hemoglobin 32 pg (27-31); Mean Corpuscular Volume 96 fL (80-94); Mean Platelet Volume 8.4 fL (7.4-10.4); Nucleated Red Blood Cells % 0.1; Platelet Count 232 10^3/uL (150-450); Red Blood Count 3.84 10^6 /uL (4.18-5.48); Red Cell Distribution Width 13 % (10-15); White Blood Count 7.5 10^3/uL (3.5-10.8)
[2019-04-30 06:32] LABS: Albumin 3.1 g/dL (3.2-5.2); BUN/Creatinine Ratio 25.4 (8-20); Calcium 9.2 mg/dL (8.6-10.3); EGFR African American 145.9 (>60); EGFR Non-African American 120.6 (>60); Magnesium 1.6 mg/dL (1.9-2.7); Phosphorus 2.7 mg/dL (2.5-5.0); Total Bilirubin 0.5 mg/dL (0.2-1.0); Total Protein 6.1 g/dL (6.4-8.9)
--- NOTE | 2019-04-30 08:19 | PN ---
Date of Service: 04/30/19 - 8 Critical Care Services: 63 yo M with PMH including heavy alcohol abuse, HTN, COPD, sleep apnea presented to the ED on 04/23/2019 with complaints of confusion x 1 day. He reports he quit drinking suddenly on Tuesday but unsure if it was 04/22 or . He states he was seen in the ED on 04/17/2019 and given Librium to take on discharge (he says he took 6). Per family he has been confused x 2 days, unsure if day or night, and slurred speech. Per family they could smell alcohol on his breath 2 days prior. On arrival sats 82% on room air and alert but confused. Slightly tachycardic at 97, RR 18 and BP 112/86. Physical exam notable for no acute distress. Patient unable to provide history due to confusion. No signs of trauma. Left lung with decreased breath sounds (per patient he has a left herniated diaphragm and only right lung "works" ). Speech noted normal during exam. GCS 15. WBC normal at 10.3. BUN/creatinine elevated at 29/2.18. CXR with known left diaphragmatic hernia unchanged from prior. CT brain without any acute abnormality. Mild chronic small vessel ischemic disease noted. EKG normal sinus rhythm. Poison control notified and recommended hydration and ruling out hypoxia as cause for confusion. He was initially admitted to medicine however he desaturated to 88% on 10L and was started on BiPAP, with improvement to 91% on FiO2 100%. ABG obtained showed pH 7.13 with pCO2 103. He was transferred to ICU and intubated for acute on chronic hypoxic and hypercarbic respiratory failure. 04/24: acute respiratory failure felt to be multifactorial due to hepatic ( cirrhotic) encephalopathy (ammonia level elevated), use of a new sedative ( Librium), EtOH withdrawal and now ECHO revealing cardiomyopathy. Hydrated for PIETRO, however noted that elevated creatinine may be secondary to cardiorenal syndrome rather than dehydration. Troponin leak does not explain degree of cardiomyopathy seen on TTE. Plan for ASA/statin/BB and subacute followup with cardiology. MRI obtained, showing only smild chronic small vessel ischemic disease but not acute pathology. 04/25: No interval events. ammonia level improving. started on TF. Creatinine improving. 04/26: Extubated. Drowsy but responding appropriately to verbal stimuli. WAM protocol with ETOH withdrawal. Ammonia level normalized. Noted to have thick secretions (while ETT in) and low grade temp. Started on Rocephin and Zithromax for suspected LLL pneumonia. Sputum samples sent for culture. Became tachypneic, tachycardic and hypertensive with wheezing on expiration. No change in mental status. Started on BiPAP. 04/27: Overnight noted to have unequal pupils. Somnolent but following commands, equal hand guest services officer. Stat head CT unremarkable. By morning noted to be more alert as compared to previous day. Using BiPAP at night and PRN during day. Passed bedside swallow eval and started on soft diet. 04/28: Became agitated and restless in early AM, given Ativan. Subsequently developed increased work of breathing requiring BiPAP. Given a break in AM however developed hypercapnic acidosis and was restarted on BiPAP. Mental status subsequently improved. [place] likely did not wear BiPAP long enough during night time. 04/29: Pt removed BiPAP overnight and later became confused and noted to be hallucinating. Given Ativan and restarted on BiPAP. Oriented later in morning. Neuro consult and EEG ordered. Outside the window for agitation and hallucinations to be withdrawal. 04/30: Thiamine and folate levels sent. Vital Signs: Temp Pulse Resp BP SpO2 FiO2 97.9 F 82 17 137/78 92 40 04/30/19 08:00 04/30/19 08:00 04/30/19 08:00 04/30/19 08:00 04/30/19 08:00 04/30 04:00 Physical Exam: Gen: HEENT: Lungs: Cardiac: Abdomen: Extremities: Neuro: Fluid Balance (Past 24 Hours): I= O= Net Intake & Output 04/28/19 04/29/19 04/30/19 05/01/19 06:59 06:59 06:59 06:59 Intake Total 3403 2232 3460.4 Output Total 5885 7003 6595 225 Balance 186 -6063 -514.6 -225 Weight 251 lb 5.231 oz 244 lb 0.827 oz 111 lb 1.6 oz Intake: IV Fluids 2488 1300 3224.4 ABX 298 Folic Acid 60 LR 2394 NS 2190 1300 770.4 IVPB 812 236 ABX 59 63 Mag Sulfate 110 NS 753 Thiamine 63 Oral 530 120 Hahn [place]rr[place] Amount 385 Output: Urine 910 0 Hahn 3217 3483 7186 225 Labs: Laboratory Results - last 24 hr 04/28/19 04/29/19 04/29/19 04:13 09:30 09:30 WBC 7.4 RBC 3.92 L Hgb 12.5 L Hct 38 L MCV 96 H MCH 32 H MCHC 33 RDW 14 Plt Count 221 MPV 8.3 Neut % (Auto) 74.0 Lymph % (Auto) 10.5 Gaines % (Auto) 12.3 Eos % (Auto) 2.2 Baso % (Auto) 1.0 Absolute Neuts (auto) 5.5 Absolute Lymphs (auto) 0.8 L Absolute Monos (auto) 0.9 H Absolute Eos (auto) 0.2 Absolute Basos (auto) 0.1 Absolute Nucleated RBC 0.0 Nucleated RBC % 0.0 Patient Temperature ABG pH ABG pH (Temp Correct) ABG pCO2 ABG pCO2 (Temp Corrct ABG pO2 ABG pO2 (Temp Correct ABG HCO3 ABG O2 Saturation ABG Base Excess Respiration Rate O2 Delivery Device Ventilator Type Vent Mode FiO2 Inspiratory Time PEEP Pressure Support Pressure Control EPAP IPAP BiPAP Sodium 144 146 H Potassium 4.4 4.2 Chloride 107 104 Carbon Dioxide 32 38 H Anion Gap 5 4 BUN 14 16 Creatinine 0.85 0.75 Est GFR ( Amer) 110.9 128.1 Est GFR (Non-Af Amer) 91.6 105.9 BUN/Creatinine Ratio 16.5 21.3 H Glucose 129 H 111 H Calcium 8.7 8.8 Phosphorus Magnesium 1.2 L 1.2 L Total Bilirubin AST ALT Alkaline Phosphatase Total Protein Albumin Globulin Albumin/Globulin Ratio 04/29/19 04/29/19 04/30/19 14:10 20:35 05:45 WBC RBC Hgb Hct MCV MCH MCHC RDW Plt Count MPV Neut % (Auto) Lymph % (Auto) Gaines % (Auto) Eos % (Auto) Baso % (Auto) Absolute Neuts (auto) Absolute Lymphs (auto) Absolute Monos (auto) Absolute Eos (auto) Absolute Basos (auto) Absolute Nucleated RBC Nucleated RBC % Patient Temperature Not Reportable Not Reportable ABG pH 7.34 L 7.36 ABG pH (Temp Correct) Not Reportable Not Reportable ABG pCO2 66 H 68 H ABG pCO2 (Temp Corrct Not Reportable Not Reportable ABG pO2 118 H 94 ABG pO2 (Temp Correct Not Reportable Not Reportable ABG HCO3 30.7 32.8 H ABG O2 Saturation 99.4 H 98.6 H ABG Base Excess 7.4 H 10.1 H Respiration Rate Not Reportable 12 O2 Delivery Device bipap Ventilator Type Not Reportable Not Reportable Vent Mode Not Reportable Not Reportable FiO2 45 45 Inspiratory Time Not Reportable Not Reportable PEEP Not Reportable Not Reportable Pressure Support Not Reportable Not Reportable Pressure Control Not Reportable Not Reportable EPAP 10 10 IPAP 20 20 BiPAP Not Reportable x Sodium 144 Potassium 4.0 Chloride 103 Carbon Dioxide 38 H Anion Gap 3 BUN 17 Creatinine 0.67 Est GFR ( Amer) 145.9 Est GFR (Non-Af Amer) 120.6 BUN/Creatinine Ratio 25.4 H Glucose 94 Calcium 9.2 Phosphorus 2.7 Magnesium 1.6 L Total Bilirubin 0.50 AST 19 ALT 18 Alkaline Phosphatase 59 Total Protein 6.1 L Albumin 3.1 L Globulin 3.0 Albumin/Globulin Ratio 1.0 04/30/19 05:45 WBC 7.5 RBC 3.84 L Hgb 12.2 L Hct 37 L MCV 96 H MCH 32 H MCHC 33 RDW 13 Plt Count 232 MPV 8.4 Neut % (Auto) 69.6 Lymph % (Auto) 13.6 Gaines % (Auto) 11.8 Eos % (Auto) 3.7 Baso % (Auto) 1.3 Absolute Neuts (auto) 5.2 Absolute Lymphs (auto) 1.0 Absolute Monos (auto) 0.9 H Absolute Eos (auto) 0.3 Absolute Basos (auto) 0.1 Absolute Nucleated RBC 0.0 Nucleated RBC % 0.1 Patient Temperature ABG pH ABG pH (Temp Correct) ABG pCO2 ABG pCO2 (Temp Corrct ABG pO2 ABG pO2 (Temp Correct ABG HCO3 ABG O2 Saturation ABG Base Excess Respiration Rate O2 Delivery Device Ventilator Type Vent Mode FiO2 Inspiratory Time PEEP Pressure Support Pressure Control EPAP IPAP BiPAP Sodium Potassium Chloride Carbon Dioxide Anion Gap BUN Creatinine Est GFR ( Amer) Est GFR (Non-Af Amer) BUN/Creatinine Ratio Glucose Calcium Phosphorus Magnesium Total Bilirubin AST ALT Alkaline Phosphatase Total Protein Albumin Globulin Albumin/Globulin Ratio Studies: 04/29 CXR - significantly elevated left hemidiaphragm with similar overliying linear airspace opacification that could be financial foundations representative of atelectasis. 04/[address] - no acute intracranial hemorrhage or infarct. No change from prior study. 04/26 CXR - LLL consolidation noted. hyperinflated right lung field noted. 04/24 Brain MR - no acute intracranial abnormality identified. mild chornic small vessel ischemic disease likely. CXR - low lung volumes. 04/23 TTE - LVEF 30-35%. moderate diffuse hypokinesis. Grade 1 diastolic dysfunction. RVEF reduced. LA mildly dilated. MV trace regurgitation. TV trace regurgitation. No pericardial effusion. Renal US - normal kidneys and bladder CXR - chronic elevation in left diaphragm. findings consistent with COPD. Brain CT - no acute abnormality. Mild chronic small vessel ischemic disease. Nutrition: soft diet Impression: 63 yo M admitted on 04/23 with acute toxic metabolic encephalopathy in the setting of alcohol withdrawal, librium use and acute on chronic hypoxic and hypercapnic respiratory failure. Required intubation initially but now extubated. Continuing to require BIPAP and night and PRN during day. 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 Continues to have ongoing confusion. Plan: Hospital Diagnoses: #1: Acute on chronic hypoxic and hypercarbic respiratory failure #2: Acute toxic metabolic encephalopathy #3: Alcoholic cardiomyopathy #4: Alcoholic cirrhosis Cardiovascular: (1) Alcoholic cardiomyopathy; (2) Chronic essential HTN -- HR 75-89 -- SBP 126-157 -- Telemetry -- ASA -- atorvastatin -- Losartan Home meds: Indapamide Pulmonary: (1) Acute on chronic hypoxic and hypercarbic respiratory failure; (2 ) Obstructive sleep apnea; (3) COPD; (4) Suspected LLL pneumonia, community acquired; (5) Chronic left lung atelectasis due to congenital diaphragmatic hernia -- RR 04-23 -- sats 91-98 on 4L NC -- BiPAP at night and PRN During day -- CXR, 04/29: unchanged -- ABG, 04/29: pH 7.36; pCO2 68; pO2 94; HCO3 32.8; BE 10.1; on BiPAP -- PRN Duonebs Home meds: None Gastrointestinal: (1) Hyperammonemia, resolved; (2) Hepatic encephalopathy, resolved; (3) Alcoholic cirrhosis -- LFTs within normal limits -- Ammonia 51 on 04/27 -- diet: regular soft -- bowel regimen: None -- ulcer prophylaxis: Protonix Home meds: None Endocrine: (1) Question of latent diabetes -- monitor BGs -- Hgb A1c 7.0 Home meds: None Renal: (1) Acute kidney injury; (2) Hypomagnesemia -- UOP: 124 ml/hr -- Cr 0.67 from 0.75 -- Lytes Na 144 from 146 K 4.0 Ca 9.2 Mag 1.6, replaced Phos 2.7 -- IVF: LR @ 150 ml/hr, decrease to 50 ml/hr Home meds: None Infectious disease: (1) Suspected LLL pneumonia, community acquired, resolved -- Tmax 99.1 -- WBC 7.5 from 7.4 -- Micro 04/29 sputum in progress 04/23 MRSA negative -- ABX completed 5 day course of Rocephin and Azithromycin Home meds: None Neurologic: (1) Acute toxic metabolic encephalopathy; (2) Alcohol abuse; (3) Alcohol withdrawal, resolved -- Folate level 17.80 (normal > 3.99) -- Thiamine level ordered -- EEG ordered -- Folic acid and thiamine supplementation -- PRN Ativan for agitation -- Nightly melatonin -- Neurology consulted Home meds: Librium, naltrexone Hematological: No acute issues -- Hgb 12.2 from 12.5 -- Plt 232 from 221 -- DVT prophylaxis: SQ Lovenox Home meds: None Metabolic: No acute issues Home meds: None Other: No acute issues -- Brimodine eye drops -- artificial tears Home meds: None Deep vein thrombosis prophylaxis: SQ Lovenox Dietary: Protonix Condition: critical Prognosis: guarded Code status: FULL Disposition: continue ICU Care Cumulative time spent in the care of this patient (excluding any procedure time) : at least 60 minutes. Patient care included clinical interview (with patient and/or family), bedside exam of the patient, review of labs, x-rays, and other ancillary data, coordination of (respiratory, nursing care, review of patient's records, discussion regarding patients management with involved consultants, primary physician, pharmacists, and other healthcare personnel (dietary, case management , physical/occupational therapy etc.) Critical Care Time: 60 min
[2019-04-30] MEDS: Aspirin EC TAB* 81 MG TAB.EC PO SCH (09:26)
[2019-04-30] MEDS: Atorvastatin* 40 MG TAB PO SCH (09:26)
[2019-04-30] MEDS: Losartan TAB* 25 MG PO SCH (09:27)
[2019-04-30] MEDS: Pantoprazole IV* 40 MG IV SCH (09:35)
[2019-04-30] MEDS: BRIMONIDINE 0.025% BOTH EYES SCH ×3 (09:35→20:08)
[2019-04-30] MEDS: Enoxaparin(*) 40 MG/0.4 ML SYR SUBCUT SCH (09:35)
[2019-04-30 09:38] LABS: Folate 17.8 ng/mL (>3.99)
[2019-04-30] MEDS ORDERED: Lactated Ringers 1000 ML Bag* 1,000 ML IV SCH (09:55)
[2019-04-30] MEDS ORDERED: Magnesium Sulfate 1 GM IV* 1 GM/100 ML BAG IV ONE (09:55)
[2019-04-30] MEDS ORDERED: Polyethylene Glycol 3350* 17 GM PACKET PO PRN (10:35)
[2019-04-30] MEDS: Folic Acid IV* 1 MG in NS 0.9% 50 ML* 50 ML IVPB SCH (10:52)
[2019-04-30] MEDS: Thiamine TAB* 100 MG TAB PO SCH (11:09)
[2019-04-30] MEDS: cefTRIAXone(*) 1 GM in NS 0.9% 50 ML* 50 ML IVPB SCH (14:10)
[2019-04-30] MEDS ORDERED: hydrALAZINE IV* 20 MG/ML VIAL IV SLOW PU PRN (19:09)
[2019-04-30] MEDS: Acetaminophen TAB* 325 MG PO PRN (19:16)
[2019-04-30] MEDS: Melatonin 3 MG TAB PO SCH (20:08)
--- NOTE | 2019-04-30 20:18 | EEG ---
ELECTROENCEPHALOGRAPHY: DATE OF STUDY: 04/30/19 - ROOM #ICU-01 LOCATION: He is an inpatient in the intensive care unit. REFERRING PROVIDER: Dr. Alvarez. CLINICAL PROBLEM: Episode of confusion, left facial weakness, and slurred speech. The patient was subsequently encephalopathic, requiring intubation. He was extubated on 04/26/19. CURRENT MEDICATIONS: Include: 1. Rocephin. 2. Protonix. 3. Cozaar. 4. Lipitor. 5. Aspirin. 6. Lorazepam. REPORT: This 19-channel EEG is remarkable for background rhythms, consisting of a reasonably well formed alpha rhythm in the occipital derivations at 10 cycles per second. There was fairly abundant beta rhythms seen bifrontally and centrally. There is some intermingled theta rhythms seen centrally and bitemporally. The patient was initially awake. The patient apparently drowses with perhaps an increase in bitemporal theta rhythms, but does not sleep. Activation procedures are not attempted. There are no clinical events. There are no focal, lateralized, or epileptiform abnormalities. INTERPRETATION: Essentially normal EEG other than some mild disorganization of background rhythms consistent with mild diffuse cerebral dysfunction. There are no focal or epileptiform features to this recording. [id number]/[facility] #: [id number] [facility]
[2019-05-01 04:12] LABS: Hematocrit 37 % (42-52); Hemoglobin 12.2 g/dL (14.0-18.0); Mean Corpuscular HGB Conc 33 g/dL (31-36); Mean Corpuscular Hemoglobin 32 pg (27-31); Mean Corpuscular Volume 96 fL (80-94); Platelet Count 258 10^3/uL (150-450); Red Blood Count 3.84 10^6 /uL (4.18-5.48); Red Cell Distribution Width 14 % (10-15); White Blood Count 7.5 10^3/uL (3.5-10.8)
[2019-05-01 04:39] LABS: Albumin 3.2 g/dL (3.2-5.2); Albumin/Globulin Ratio 1.1 (1-3); BUN/Creatinine Ratio 21.7 (8-20); Calcium 9.4 mg/dL (8.6-10.3); EGFR Non-African American 116.6 (>60); Magnesium 1.5 mg/dL (1.9-2.7); Phosphorus 2.5 mg/dL (2.5-5.0); Potassium 3.8 mmol/L (3.5-5.0); Total Bilirubin 0.5 mg/dL (0.2-1.0); Total Protein 6.2 g/dL (6.4-8.9)
[2019-05-01] MEDS: Acetaminophen TAB* 325 MG PO PRN ×2 (05:48→21:03)
[2019-05-01] MEDS: Enoxaparin(*) 40 MG/0.4 ML SYR SUBCUT SCH (08:00)
[2019-05-01] MEDS: Aspirin EC TAB* 81 MG TAB.EC PO SCH (08:01)
[2019-05-01] MEDS: BRIMONIDINE 0.025% BOTH EYES SCH ×3 (08:01→21:05)
[2019-05-01] MEDS: Folic Acid TAB* 1 MG PO SCH (08:01)
[2019-05-01] MEDS: Pantoprazole IV* 40 MG IV SCH (08:01)
[2019-05-01] MEDS: Losartan TAB* 25 MG PO SCH (08:01)
[2019-05-01] MEDS: Thiamine TAB* 100 MG TAB PO SCH (08:01)
[2019-05-01] MEDS: Atorvastatin* 40 MG TAB PO SCH (08:01)
[2019-05-01] MEDS ORDERED: Magnesium Sulfate 1 GM IV* 1 GM/100 ML BAG IV ONE (08:19)
[2019-05-01] MEDS ORDERED: Magnesium Hydroxide LIQ* 30 ML UDC PO ONE (08:24)
[2019-05-01] MEDS: Pantoprazole TAB * 40 MG TAB PO SCH (08:29)
--- NOTE | 2019-05-01 08:29 | PN ---
Date of Service: 05/01/19 - 3 Critical Care Services: 63 yo M with PMH including heavy alcohol abuse, HTN, COPD, sleep apnea presented to the ED on 04/23/2019 with complaints of confusion x 1 day. He reports he quit drinking suddenly on Tuesday but unsure if it was 04/22 or . He states he was seen in the ED on 04/17/2019 and given Librium to take on discharge (he says he took 6). Per family he has been confused x 2 days, unsure if day or night, and slurred speech. Per family they could smell alcohol on his breath 2 days prior. On arrival sats 82% on room air and alert but confused. Slightly tachycardic at 97, RR 18 and BP 112/86. Physical exam notable for no acute distress. Patient unable to provide history due to confusion. No signs of trauma. Left lung with decreased breath sounds (per patient he has a left herniated diaphragm and only right lung "works" ). Speech noted normal during exam. GCS 15. WBC normal at 10.3. BUN/creatinine elevated at 29/2.18. CXR with known left diaphragmatic hernia unchanged from prior. CT brain without any acute abnormality. Mild chronic small vessel ischemic disease noted. EKG normal sinus rhythm. Poison control notified and recommended hydration and ruling out hypoxia as cause for confusion. He was initially admitted to medicine however he desaturated to 88% on 10L and was started on BiPAP, with improvement to 91% on FiO2 100%. ABG obtained showed pH 7.13 with pCO2 103. He was transferred to ICU and intubated for acute on chronic hypoxic and hypercarbic respiratory failure. 04/24: acute respiratory failure felt to be multifactorial due to hepatic ( cirrhotic) encephalopathy (ammonia level elevated), use of a new sedative ( Librium), EtOH withdrawal and now ECHO revealing cardiomyopathy. Hydrated for PIETRO, however noted that elevated creatinine may be secondary to cardiorenal syndrome rather than dehydration. Troponin leak does not explain degree of cardiomyopathy seen on TTE. Plan for ASA/statin/BB and subacute followup with cardiology. MRI obtained, showing only smild chronic small vessel ischemic disease but not acute pathology. 04/25: No interval events. ammonia level improving. started on TF. Creatinine improving. 04/26: Extubated. Drowsy but responding appropriately to verbal stimuli. WAM protocol with ETOH withdrawal. Ammonia level normalized. Noted to have thick secretions (while ETT in) and low grade temp. Started on Rocephin and Zithromax for suspected LLL pneumonia. Sputum samples sent for culture. Became tachypneic, tachycardic and hypertensive with wheezing on expiration. No change in mental status. Started on BiPAP. 04/27: Overnight noted to have unequal pupils. Somnolent but following commands, equal hand tool hardener. Stat head CT unremarkable. By morning noted to be more alert as compared to previous day. Using BiPAP at night and PRN during day. Passed bedside swallow eval and started on soft diet. 04/28: Became agitated and restless in early AM, given Ativan. Subsequently developed increased work of breathing requiring BiPAP. Given a break in AM however developed hypercapnic acidosis and was restarted on BiPAP. Mental status subsequently improved. [place] likely did not wear BiPAP long enough during night time. 04/29: Pt removed BiPAP overnight and later became confused and noted to be hallucinating. Given Ativan and restarted on BiPAP. Oriented later in morning. Neuro consult and EEG ordered. Outside the window for agitation and hallucinations to be withdrawal. 04/30: Thiamine and folate levels sent. More alert, responding more quickly to questions. Vital Signs: Temp Pulse Resp BP SpO2 FiO2 98.3 F 80 34 154/86 96 35 05/01/19 08:00 05/01/19 07:00 05/01/19 07:00 05/01/19 07:00 05/01/19 07:00 04/30 23:51 Physical Exam: Gen: resting comfortably in bed HEENT: NC in place Lungs: CTAB Cardiac: RRR Abdomen: soft, NTND Extremities: warm, dry Neuro: slow but responsive to questions. Fluid Balance (Past 24 Hours): I= O= Net Intake & Output 04/29/19 04/30/19 05/01/19 05/02/19 06:59 06:59 06:59 06:59 Intake Total 2232 3460.4 1267 0 Output Total 4765 3975 2175 Balance -2533 -514.6 -908 0 Weight 244 lb 0.827 oz 111 lb 1.6 oz 248 lb 7.375 oz Intake: IV Fluids 1300 3224.4 992 Folic Acid 60 LR 2394 831 NS 1300 770.4 161 IVPB 812 236 155 ABX 59 63 LR 105 Mag Sulfate 110 NS 753 50 Thiamine 63 Oral 120 120 0 Output: Urine 910 0 1100 Hahn 3855 3975 625 Straight Cath 450 Labs: Laboratory Results - last 24 hr 04/30/19 05/01/19 05/01/19 05:45 04:05 04:05 WBC 7.5 RBC 3.84 L Hgb 12.2 L Hct 37 L MCV 96 H MCH 32 H MCHC 33 RDW 14 Plt Count 258 MPV 8.0 Sodium 144 Potassium 4.0 Chloride 103 Carbon Dioxide 38 H Anion Gap 3 BUN 17 Creatinine 0.67 Est GFR ( Amer) 145.9 Est GFR (Non-Af Amer) 120.6 BUN/Creatinine Ratio 25.4 H Glucose 94 Calcium 9.2 Phosphorus 2.7 Magnesium 1.6 L Total Bilirubin 0.50 AST 19 ALT 18 Alkaline Phosphatase 59 Ammonia 56 H Total Protein 6.1 L Albumin 3.1 L Globulin 3.0 Albumin/Globulin Ratio 1.0 Folate 17.80 05/01/19 04:05 WBC RBC Hgb Hct MCV MCH MCHC RDW Plt Count MPV Sodium 143 Potassium 3.8 Chloride 101 Carbon Dioxide 39 H Anion Gap 3 BUN 15 Creatinine 0.69 Est GFR ( Amer) 141.0 Est GFR (Non-Af Amer) 116.6 BUN/Creatinine Ratio 21.7 H Glucose 101 H Calcium 9.4 Phosphorus 2.5 Magnesium 1.5 L Total Bilirubin 0.50 AST 19 ALT 20 Alkaline Phosphatase 60 Ammonia Total Protein 6.2 L Albumin 3.2 Globulin 3.0 Albumin/Globulin Ratio 1.1 Folate Studies: 05/01 CXR - read pending. 04/30 EEG - essentially normal other than some mild disorganization of background rhythms consistent with mild diffuse cerebral dysfunction. 04/29 CXR - significantly elevated left hemidiaphragm with similar overliying linear airspace opacification that could be specialty sales representative of atelectasis. 04/[address] - no acute intracranial hemorrhage or infarct. No change from prior study. 04/26 CXR - LLL consolidation noted. hyperinflated right lung field noted. 04/24 Brain MR - no acute intracranial abnormality identified. mild chornic small vessel ischemic disease likely. CXR - low lung volumes. 04/23 TTE - LVEF 30-35%. moderate diffuse hypokinesis. Grade 1 diastolic dysfunction. RVEF reduced. LA mildly dilated. MV trace regurgitation. TV trace regurgitation. No pericardial effusion. Renal US - normal kidneys and bladder CXR - chronic elevation in left diaphragm. findings consistent with COPD. Brain CT - no acute abnormality. Mild chronic small vessel ischemic disease. Nutrition: general diet Impression: 63 yo M admitted on 04/23 with acute toxic metabolic encephalopathy in the setting of alcohol withdrawal, librium use and acute on chronic hypoxic and hypercapnic respiratory failure. Required intubation initially but now extubated. Continuing to require BIPAP and night and PRN during day. 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 Continues to have ongoing confusion, though now slowly improving. Plan: Hospital Diagnoses: #1: Acute on chronic hypoxic and hypercarbic respiratory failure #2: Acute toxic metabolic encephalopathy #3: Alcoholic cardiomyopathy #4: Alcoholic cirrhosis Cardiovascular: (1) Alcoholic cardiomyopathy; (2) Chronic essential HTN -- HR 67-94 -- SBP 111-172 -- Telemetry -- ASA -- atorvastatin -- Losartan, plan to increase dose if continuing to require PRN Hydralazine -- PRN Hydralazine for goal SBP < 160 Home meds: Indapamide Pulmonary: (1) Acute on chronic hypoxic and hypercarbic respiratory failure; (2 ) Obstructive sleep apnea; (3) COPD; (4) LLL pneumonia, community acquired; (5) Chronic left lung atelectasis due to congenital diaphragmatic hernia -- RR 13-34 -- sats 87-96 on 4L NC -- BiPAP at night. Did not require yesterday during day time -- CXR, 05/01: read pending, though on prelim review noted to have ileus with herniated loops in left chest -- PRN Duonebs Home meds: None Gastrointestinal: (1) Hyperammonemia, resolved; (2) Hepatic encephalopathy, resolved; (3) Alcoholic cirrhosis -- LFTs within normal limits -- Ammonia 56, follow trend -- diet: regular soft -- bowel regimen: Miralax, MOM -- ulcer prophylaxis: Protonix Home meds: None Endocrine: (1) Question of latent diabetes -- monitor BGs -- Hgb A1c 7.0 Home meds: None Renal: (1) Acute kidney injury, resolved; (2) Hypomagnesemia -- UOP: 91 ml/hr, autodiuresing -- Cr 0.69 from 0.67 -- Lytes Na 143 from 144 K 3.8 Ca 9.4 Mag 1.5, replaced Phos 2.5 -- IVF: LR @ 150 ml/hr, decrease to 50 ml/hr Home meds: None Infectious disease: (1) Staph Aureus LLL pneumonia, community acquired, resolved -- Tmax 98.9 -- WBC 7.5 from 7.5 -- Micro 04/29 sputum Staph aureus 04/23 MRSA negative -- ABX day 6 of 7 Rocephin Home meds: None Neurologic: (1) Acute toxic metabolic encephalopathy; (2) Alcohol abuse; (3) Alcohol withdrawal, resolved -- Folate level 17.80 (normal > 3.99) -- Thiamine level pending -- EEG without epileptiform discharges -- Folic acid and thiamine supplementation -- PRN Ativan; discontinue as no longer using -- PRN Tylenol -- Nightly melatonin -- Neurology consulted Home meds: Librium, naltrexone Hematological: No acute issues -- Hgb 12.2 from 12.2 -- Plt 258 from 232 -- DVT prophylaxis: SQ Lovenox -- ASA Home meds: None Metabolic: No acute issues Home meds: None Other: No acute issues -- Brimodine eye drops -- artificial tears Home meds: None Deep vein thrombosis prophylaxis: SQ Lovenox Dietary: Protonix Condition: serious Prognosis: guarded Code status: FULL Disposition:transfer to floor Brother updated at bedside Cumulative time spent in the care of this patient (excluding any procedure time) : at least 40 minutes. Patient care included clinical interview (with patient and/or family), bedside exam of the patient, review of labs, x-rays, and other ancillary data, coordination of (respiratory, nursing care, review of patient's records, discussion regarding patients management with involved consultants, primary physician, pharmacists, and other healthcare personnel (dietary, case management , physical/occupational therapy etc.) Critical Care Time: none
[2019-05-01] MEDS: cefTRIAXone(*) 1 GM in NS 0.9% 50 ML* 50 ML IVPB SCH (14:57)
--- NOTE | 2019-05-01 19:18 | CONS ---
CC: Dr. Darryn Khan * CONSULTATION REPORT: DATE OF CONSULT: 05/01/19 LOCATION: He is currently in the ICU room 1. PRIMARY CARE PROVIDER: Dr. Darryn Khan. REASON FOR CONSULTATION: Altered mental status. HISTORY OF PRESENT ILLNESS: Mr. Rice is a 63-year-old gentleman who has a history of one lung with a left elevated hemidiaphragm from childhood, history of heavy alcohol use, hypertriglyceridemia, and obstructive sleep apnea, who a week prior to admission decided to stop drinking alcohol "cold turkey" per his brother. He subsequently came to the ER on 04/17/19 and was given Librium t.i.d. for his alcohol withdrawal. He was also prescribed naltrexone and several days later, his brother noted that he was becoming more and more confused. He tried to work several days, but his coworker sent him home because he was slurring his speech and confused. His brother on last Tuesday about a week ago decided that he was worsening and brought him to the ER. At the time that he came in, it was noted that he had a mild left facial droop and slurred speech. He appeared dazed and confused. He was oriented to person only. He reported to his brother that he had been taking more Librium than he was supposed to. His hospital course has been complicated by hyperammonemia as well as hypoxia at one point requiring intubation for acute respiratory failure. It was felt that this was likely secondary to his hepatic encephalopathy, Librium use, alcohol withdrawal and some cardiomyopathy seen on echocardiogram. He also had some kidney dysfunction. He was subsequently extubated on 04/26/19 several days after intubation, was on the [facility] protocol for alcohol withdrawal. His ammonia level has improved, but remains elevated. He had no reported episodes of hypotension although he did become hypoxic. He has been given Ativan at times for agitation and restlessness. On 04/28/19, he was given a BiPAP for increased work of breathing and he also developed some hypercapnia with acidosis. At one point, he pulled his BiPAP off and by the next morning he became more confused and was hallucinating. He seemed to be responding some and more alert yesterday and today, the brother notes that he is better and I was consulted because the patient continues to wax and wane and is having a slow recovery. The brother at the bedside was able to fill in some details as the patient was not a good historian. The brother states that he does seem better today than yesterday and yesterday he seemed better than the day before. So, he apparently is improving. STUDIES DONE DURING THIS ADMISSION: Include: 1. Brain CT done on 04/23/19. Impression: No acute intracranial abnormality, mild chronic small vessel ischemic disease. 2. CT scan done on 04/27/19 showed no acute intracranial hemorrhage or infarct. There is no significant interval change from the previous study. 3. MRI. Impression: No acute intracranial abnormality identified. Mild chronic small vessel ischemic disease. 4. Electroencephalogram dated 04/30/19. Interpretation: Essentially normal EEG, other than some mild disorganization of background rhythms consistent with mild diffuse cerebral dysfunction. There were no focal or epileptiform features to this recording. 5. Transthoracic echocardiogram on 04/24/19. Summary: Left ventricular systolic function is moderately reduced with an estimated ejection fraction of 30% to 35%, moderate diffuse hypokinesis, systolic function is moderately reduced. The atrium is mildly dilated. There is trace regurgitation. There is no evidence of stenosis. There is no significant regurgitation in the aortic valve. Tricuspid valve, there is trace regurgitation. Pericardium, there is no significant pericardial effusion. No prior studies available. 6. He also had a chest x-ray done this morning, which showed hyperinflated lung lawrence with left base atelectasis. Right lung field appears hyperinflated. PAST MEDICAL HISTORY: As noted above. PAST SURGICAL HISTORY: Includes: 1. Inguinal hernia repair on the left. 2. Left scaphoid and distal radius bone graft, open reduction and internal fixation. 3. Right inguinal hernia repair. MEDICATIONS AT HOME: Include: 1. Indapamide 1.25 mg daily. 2. Chlordiazepoxide 50 mg p.o. t.i.d. p.r.n. alcohol withdrawal symptoms. 3. Naltrexone 50 mg daily. 4. Losartan 25 mg p.o. daily. 5. Lipitor 40 mg p.o. daily. 6. Aspirin 81 mg daily. ALLERGIES: No known drug allergies. FAMILY HISTORY: His mother is in poor health with Alzheimer's, diabetes, and coronary artery disease. Cause of his father's is unknown. SOCIAL HISTORY: Denied tobacco use. Heavy drinker, at least a pint a day. 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 No reported drug use. REVIEW OF SYSTEMS: In 14-organ systems very difficult to obtain. The patient currently denies any symptoms, headaches, vision changes, swallowing difficulties, nausea, vomiting, diarrhea. He does note some constipation. The last bowel movement was today prior 8 days ago. The patient also notes feeling very weak and tired, which he says he feels at baseline, but it has been much more noticeable in the last few days. PHYSICAL EXAMINATION: GENERAL: He is a well-developed, well-nourished gentleman , obese, sitting in the hospital bed. His brother is at the bedside. VITAL SIGNS: Temp of 98.1, heart rate of 89, respiratory rate is 17, O2 sat is 96% on room air. Blood pressure 129/75. HEENT: He is normocephalic, atraumatic. He has some stigmata on his face of chronic alcohol use including some telangiectasias of the nose. His sclerae appear to be mildly icteric or dirty. Mucous membranes are dry. Oropharynx is clear. NECK: Appears to be supple. PULMONARY: Chest is clear to auscultation bilaterally with distant breath sounds. CARDIAC: Regular rate and rhythm without murmurs. ABDOMEN: Obese, somewhat distended but nontender. EXTREMITIES: No significant clubbing, cyanosis, or edema. NEUROLOGIC: He is awake and alert. He is oriented to person, place, and time, but he is very slow to answer. He did think he was in [facility] rather than [facility]. He seems somewhat lethargic and it takes him some time to process. His speech is fluent. There is no significant dysarthria. Mood appears to be dysthymic. Cranial nerves, pupils are equally round and reactive to light. Extraocular muscles appear to be intact with some lag in the lateral gaze bilaterally. No nystagmus was appreciated. No ptosis or diplopia appreciated. His face appears symmetric at this time. Tongue appears midline. Oropharynx, his palate raises symmetrically. MOTOR EXAM: He has diffuse weakness throughout, 4+/5 and had some drift in all extremities after 4 to 5 seconds, mild in nature. Tone is normal with no cogwheeling. No atrophy appreciated. He had slow rapid alternating movements. He had some intention tremor bilaterally with [id number] and appears tremulous at baseline. His reflexes were 1+ at the biceps, 2+ at the patella, and absent at the ankles, equivocal Babinski's. Sensation was grossly intact to light touch throughout. GAIT: Not tested at this time. SKIN: Warm and dry. DIAGNOSTIC STUDIES/LAB DATA: Lab work includes white count of 7.5, hemoglobin of 12.2, hematocrit of 37. Blood gas on 04/29/19, pH of 7.36, pCO2 of 68, pO2 of 94, bicarb of 32.8. Chemistry this morning, carbon dioxide of 39, BUN/ creatinine of 21.7, glucose of 101, magnesium of 1.5, total protein of 6.2. TSH of 0.49, folate of 17.80. Ammonia 56 today. Urine negative on 04/24/19. Drug screen presumptively positive for benzodiazepines. Acetaminophen less than 15. Serum alcohol less than 10. Studies: As noted above. ASSESSMENT AND PLAN: Mr. Rice is a 63-year-old gentleman with a history of heavy alcohol use, history of hypertension, hyperlipidemia who decided several weeks ago to stop drinking cold turkey. Apparently, he has a heavy alcohol history. Subsequently, he came to the ER for signs of withdrawn and was given Librium and naltrexone, but became more confused over the weekend and was brought to the hospital last Tuesday 8 days ago, more confused, subsequently became more obtunded with respiratory failure. He did admit to his brother that he had been taking more Librium than he was supposed to. He was briefly intubated for respiratory failure throughout his hospitalization. He has remained hypercapnic and has been using BiPAP intermittently. He has also been hyperammonemic which has somewhat improved. He is hypomagnesemic. Echocardiogram showed a reduced ejection fraction of 30% to 35%. He did have an EEG, which showed no seizure activity. MRI and CT scans which showed no obvious abnormalities. At this point, I suspect that he is suffering from a toxic metabolic encephalopathy that is very slow to clear given his long history of alcohol use and likely longstanding liver dysfunction. I expect that his symptoms will persist for sometime. I discussed this with the patient and his brother. His brother states that he has been improving and I think at this time it is prudent to continue to watch him. I would not recommend any additional studies at this time. My suspicion for stroke or seizures is very low. I expect over time that he will continue to improve, but I did let him know that this will take some time, and he may not recover back to his previous baseline. I will check a CK given the fact that he has been in the ICU for some time and he seems to be weak and my suspicion for rhabdomyolysis is low. I will continue with supportive care, replace his any low electrolytes, consider lactulose if his ammonia does not improve or worsens. We would continue his BiPAP nightly. He will be transferred to the floor today. I will continue to follow along and make further recommendations if necessary. Thank you for the opportunity to participate in the care of this very interesting patient. [id number]/[facility] #: [id number] VINCE
[2019-05-01] MEDS: Melatonin 3 MG TAB PO SCH (21:03)
[2019-05-02 05:24] LABS: Hematocrit 36 % (42-52); Hemoglobin 11.6 g/dL (14.0-18.0); Mean Corpuscular HGB Conc 33 g/dL (31-36); Mean Corpuscular Hemoglobin 31 pg (27-31); Mean Corpuscular Volume 96 fL (80-94); Mean Platelet Volume 8.3 fL (7.4-10.4); Platelet Count 285 10^3/uL (150-450); Red Blood Count 3.74 10^6 /uL (4.18-5.48); Red Cell Distribution Width 14 % (10-15)
[2019-05-02 05:36] LABS: BUN/Creatinine Ratio 22.4 (8-20); Calcium 9.5 mg/dL (8.6-10.3); EGFR African American 145.9 (>60); EGFR Non-African American 120.6 (>60); Magnesium 1.6 mg/dL (1.9-2.7); Phosphorus 2.2 mg/dL (2.5-5.0); Potassium 3.6 mmol/L (3.5-5.0); Total Bilirubin 0.4 mg/dL (0.2-1.0)
[2019-05-02] MEDS ORDERED: Magnesium Sulfate 2 GM IV* 2 GM/50 ML BAG IVPB ONE (07:37)
[2019-05-02] MEDS ORDERED: Potassium Phosphate IV* 10 MMOLE in NS 0.9% 250 ML* 250 ML IVPB ONE (08:15)
[2019-05-02] MEDS: Enoxaparin(*) 40 MG/0.4 ML SYR SUBCUT SCH (08:27)
[2019-05-02] MEDS: Atorvastatin* 40 MG TAB PO SCH (08:30)
[2019-05-02] MEDS: Losartan TAB* 25 MG PO SCH (08:31)
[2019-05-02] MEDS: Pantoprazole TAB * 40 MG TAB PO SCH (08:32)
[2019-05-02] MEDS: Folic Acid TAB* 1 MG PO SCH (08:32)
[2019-05-02] MEDS: Aspirin EC TAB* 81 MG TAB.EC PO SCH (08:33)
[2019-05-02] MEDS: Thiamine TAB* 100 MG TAB PO SCH (08:33)
[2019-05-02] MEDS: BRIMONIDINE 0.025% BOTH EYES SCH ×3 (11:49→21:38)
[2019-05-02] MEDS: cefTRIAXone(*) 1 GM in NS 0.9% 50 ML* 50 ML IVPB SCH (13:53)
--- NOTE | 2019-05-02 14:09 | PN ---
Subjective Date of Service: 05/02/19 Interval History: Mr. Rice is seen in his room with brother and co-worker at bedside. He states that he is feeling better and no longer feels confused. He c/o some SOB as well as cough since ET tube removal. He had spent some time intubated, but is now on O2 10L. He had a BM today and appetite is increasing. He has no other complaints today. Objective Active Medications: Acetaminophen (Tylenol Tab*) 650 mg PO Q6H PRN PRN Reason: PAIN - MILD Last Admin: 05/01/19 21:03 Dose: 650 mg Albuterol/Ipratropium (Duoneb (Albuterol 2.5 Mg/Ipratropium 0.5 Mg)) 1 neb INH Q4H PRN PRN Reason: SOB/WHEEZING Last Admin: 04/28/19 10:39 Dose: 1 neb Artificial Tears (Lacrilube Oint*) 1 applic BOTH EYES Q4H PRN PRN Reason: DRY EYE Aspirin (Aspirin Ec Tab*) 81 mg PO DAILY [facility] Last Admin: 05/02/19 08:33 Dose: 81 mg Atorvastatin Calcium (Lipitor*) 40 mg PO DAILY [facility] Last Admin: 05/02/19 08:30 Dose: 40 mg Enoxaparin Sodium (Lovenox(*)) 40 mg SUBCUT Q24H [facility] Last Admin: 05/02/19 08:27 Dose: 40 mg Folic Acid (Folvite Tab*) 1 mg PO DAILY [facility] Last Admin: 05/02/19 08:32 Dose: 1 mg Heparin Sodium (Porcine) (Heparin Flush Picc/Ml/Cvc(*)) 1 - 3 ml FLUSH 0600, 1800 [facility]; Protocol Last Admin: 05/02/19 05:09 Dose: 1 ml Hydralazine HCl (Apresoline Iv*) 10 mg IV SLOW PU Q6H PRN PRN Reason: SYSTOLIC BP GREATER THAN: 160 Ceftriaxone Sodium 1 gm/ (Sodium Chloride) 50 mls @ 100 mls/hr IVPB Q24H [facility] Stop: 05/04/19 14:00 Last Admin: 05/02/19 13:53 Dose: 100 mls/hr Potassium Phosphate 10 mmole/ (Sodium Chloride) 253.3333 mls @ 41.726 mls/hr IVPB ONCE ONE Stop: 05/02/19 14:19 Last Admin: 05/02/19 08:18 Dose: 41.726 mls/hr Losartan Potassium (Cozaar Tab*) 25 mg PO DAILY [facility] Last Admin: 05/02/19 08:31 Dose: 25 mg Melatonin (Melatonin) 3 mg PO BEDTIME [facility] Last Admin: 05/01/19 21:03 Dose: 3 mg Pto:Brimonidine 0. (025% 7.5 Ml Btl) 1 dose BOTH EYES TID [facility] Last Admin: 05/02/19 11:49 Dose: Not Given Pantoprazole Sodium (Protonix Tab*) 40 mg PO DAILY [facility] Last Admin: 05/02/19 08:32 Dose: 40 mg Polyethylene Glycol/Electrolytes (Miralax*) 17 gm PO DAILY PRN PRN Reason: CONSTIPATION Thiamine HCl (Vitamin B-1 Tab*) 200 mg PO DAILY [facility] Last Admin: 05/02/19 08:33 Dose: 200 mg Vital Signs: Temp Pulse Resp BP Pulse Ox 98.5 F 80 22 129/74 94 05/02/19 10:05 05/02/19 10:05 05/02/19 10:05 05/02/19 10:05 05/02/19 10:05 Oxygen Devices in Use Now: Nasal Cannula Appearance: Mr. Rice is a middle-aged, obese white male who is sitting in a chair with LE at floor. He appears to be in no acute distress and is breathing comfortably on O2 Eyes: No Scleral Icterus, PERRLA Ears/Nose/Mouth/Throat: NL Teeth, Lips, Gums, Clear Oropharnyx, Mucous Membranes Moist Neck: NL Appearance and Movements; NL JVP, Trachea Midline Respiratory: - - Absent breath sounds in L; clear to auscultation R lung; normal respiratory effort Cardiovascular: NL Sounds; No Murmurs; No JVD, RRR, - - b/l 1+ pitting edema Abdominal: NL Sounds; No Tenderness; No Distention, No Hepatosplenomegaly, - - obese Extremities: No Edema, No Clubbing, Cyanosis Neurological: Alert and Oriented x 3 Result Diagrams: 05/02/19 05:05 05/02/19 05:05 Additional Lab and Data: Lab Results 04/23/19 Range/Units 20:24 WBC 10.3 (3.5-10.8) 10^3/uL RBC 4.24 (4.18-5.48) 10^6 /uL Hgb 13.9 L (14.0-18.0) g/dL Hct 41 L (42-52) % MCV 98 H (80-94) fL MCH 33 H (27-31) pg MCHC 34 (31-36) g/dL RDW 14 (10-15) % Plt Count 187 (150-450) 10^3/uL MPV 8.6 (7.4-10.4) fL Neut % (Auto) 82.2 % Lymph % (Auto) 9.1 % [place] % (Auto) 7.3 % Eos % (Auto) 0.7 % Baso % (Auto) 0.7 % Absolute Neuts (auto) 8.5 H (1.5-7.7) 10^3/ul Absolute Lymphs (auto) 0.9 L (1.0-4.8) 10^3/ul Absolute Monos (auto) 0.8 (0-0.8) 10^3/ul Absolute Eos (auto) 0.1 (0-0.6) 10^3/ul Absolute Basos (auto) 0.1 (0-0.2) 10^3/ul Absolute Nucleated RBC 0.0 10^3/ul Nucleated RBC % 0.0 Microbiology and Other Data: Microbiology 04/29/19 02:00 Gram Stain - Final Sputum Expectorated Sputum Culture - Final Staphylococcus Aureus Normal Lucrecia 04/23/19 23:40 Nasal Screen MRSA (PCR) - Final Nasal Mrsa Not Detected Assess/Plan/Problems-Billing Assessment: 63 yom PMHx alochol abuse, hypertriglyceridemia, KEY noncompliant, elevated L hemidiaphragm, presents to the ER with AMS likely d/t EtOH withdrawal, libruim use, respiratory failure requiring intubation initially; now on O2 and BIPAP at night; found to have alcoholic CM. - Patient Problems (1) Toxic metabolic encephalopathy Comment: -suspected to be multifactorial, including librium use, alcohol withdrawal, hepatic encephalopathy, hypoxia/hypercapnia with respiratory failure -appears to be improving -neuro consulted; thank you for recommendations -no further studies recommended at this time (2) Acute on chronic respiratory failure with hypoxia and hypercapnia Comment: -pt presents with hypoxia, hypercapnia -required intubation; now extubated -continue O2, wean as able -continue BIPAP at bedtime/while sleeping (3) Alcoholic cardiomyopathy Comment: -TTE EF: 30-35% -continue ARB -lasix 20 IV now for LE edema -continue asa, statin -continue alcohol abstinence -follow up with cardiology (4) CAP (community acquired pneumonia) Comment: -afebrile, without leukocytosis -continued cough since extubation -received 3d azithro, 7d ceftriaxone (5) COPD (chronic obstructive pulmonary disease) Comment: -likely COPD; does not appear to be in exacerbation -continue nebs -start tiotropium -recommend f/u with pulmonology (6) Hepatomegaly Comment: -pt presented with AMS, elevated ammonia likely contributing -patient with hepatomegaly without LFT changes -likely d/t EtOHism -continue folic acid, thiamine -follow with PCP and abstain from alcohol (7) HTN (hypertension) Comment: -SBP 100-140's -continue losartan (8) Electrolyte abnormality Comment: -mg, phos repleted -continue to monitor and replace (9) Diabetes mellitus Comment: -HA1c 7.0 -would benefit from metformin after acute illness resolved (10) KEY (obstructive sleep apnea) Comment: -continue BIPAP at bedtime (11) DVT prophylaxis (12) Full code status Status and Disposition: Inpatient. Discharge when stable.
[2019-05-02] MEDS: SPIRIVA Respimat* (tiotropium) 2.5 mcg/inh Inhaler INH SCH (19:48)
[2019-05-02] MEDS: Melatonin 3 MG TAB PO SCH (21:38)
[2019-05-02] MEDS: Acetaminophen TAB* 325 MG PO PRN (21:56)
[2019-05-03 05:25] LABS: Hematocrit 36 % (42-52); Mean Corpuscular HGB Conc 33 g/dL (31-36); Mean Corpuscular Hemoglobin 31 pg (27-31); Mean Corpuscular Volume 96 fL (80-94); Mean Platelet Volume 8.2 fL (7.4-10.4); Platelet Count 295 10^3/uL (150-450); Red Blood Count 3.82 10^6 /uL (4.18-5.48); Red Cell Distribution Width 13 % (10-15); White Blood Count 8.3 10^3/uL (3.5-10.8)
[2019-05-03] MEDS: Acetaminophen TAB* 325 MG PO PRN ×2 (05:40→15:35)
[2019-05-03 05:43] LABS: Albumin 3.3 g/dL (3.2-5.2); Albumin/Globulin Ratio 1.1 (1-3); BUN/Creatinine Ratio 20.3 (8-20); Calcium 9.5 mg/dL (8.6-10.3); EGFR African American 130.1 (>60); EGFR Non-African American 107.5 (>60); Magnesium 1.6 mg/dL (1.9-2.7); Phosphorus 3.4 mg/dL (2.5-5.0); Potassium 3.6 mmol/L (3.5-5.0); Total Bilirubin 0.4 mg/dL (0.2-1.0); Total Protein 6.3 g/dL (6.4-8.9)
[2019-05-03] MEDS ORDERED: Magnesium Sulfate IV* 3 GM in NS 0.9% 100 ML* 100 ML IVPB ONE (07:25)
[2019-05-03] MEDS: Thiamine TAB* 100 MG TAB PO SCH (08:17)
[2019-05-03] MEDS: Pantoprazole TAB * 40 MG TAB PO SCH (08:17)
[2019-05-03] MEDS: Atorvastatin* 40 MG TAB PO SCH (08:18)
[2019-05-03] MEDS: Aspirin EC TAB* 81 MG TAB.EC PO SCH (08:18)
[2019-05-03] MEDS: Folic Acid TAB* 1 MG PO SCH (08:18)
[2019-05-03] MEDS: Enoxaparin(*) 40 MG/0.4 ML SYR SUBCUT SCH (08:18)
[2019-05-03] MEDS: Losartan TAB* 25 MG PO SCH (08:18)
[2019-05-03] MEDS: BRIMONIDINE 0.025% BOTH EYES SCH ×3 (08:18→22:21)
[2019-05-03] MEDS: SPIRIVA Respimat* (tiotropium) 2.5 mcg/inh Inhaler INH SCH (09:54)
--- NOTE | 2019-05-03 13:28 | PN ---
Subjective Date of Service: 05/03/19 Length of Stay: 10 Days Interval History: Patient examined today at the bedside. Patient states he is feeling better. He denies pain. He states he is able to feed himself well. He denies chest pain and denies shortness of breathe. He denies abdominal pain. ROS-denies fever, denies chills, denies chest pain, denies shortness of breathe , denies abdominal pain, denies nausea, denies vomiting, denies lightheadedness , denies loc, review of 14 systems completed all others negative, Review of Systems: Denied CP, SOB, or palpitations. Objective Active Medications: Acetaminophen (Tylenol Tab*) 650 mg PO Q6H PRN PRN Reason: PAIN - MILD Last Admin: 05/03/19 05:40 Dose: 650 mg Albuterol/Ipratropium (Duoneb (Albuterol 2.5 Mg/Ipratropium 0.5 Mg)) 1 neb INH Q4H PRN PRN Reason: SOB/WHEEZING Last Admin: 04/28/19 10:39 Dose: 1 neb Artificial Tears (Lacrilube Oint*) 1 applic BOTH EYES Q4H PRN PRN Reason: DRY EYE Aspirin (Aspirin Ec Tab*) 81 mg PO DAILY [facility] Last Admin: 05/03/19 08:18 Dose: 81 mg Atorvastatin Calcium (Lipitor*) 40 mg PO DAILY [facility] Last Admin: 05/03/19 08:18 Dose: 40 mg Enoxaparin Sodium (Lovenox(*)) 40 mg SUBCUT Q24H [facility] Last Admin: 05/03/19 08:18 Dose: 40 mg Folic Acid (Folvite Tab*) 1 mg PO DAILY [facility] Last Admin: 05/03/19 08:18 Dose: 1 mg Heparin Sodium (Porcine) (Heparin Flush Picc/Ml/Cvc(*)) 1 - 3 ml FLUSH 0600, 1800 [facility]; Protocol Last Admin: 05/03/19 05:13 Dose: 1 ml Hydralazine HCl (Apresoline Iv*) 10 mg IV SLOW PU Q6H PRN PRN Reason: SYSTOLIC BP GREATER THAN: 160 Ceftriaxone Sodium 1 gm/ (Sodium Chloride) 50 mls @ 100 mls/hr IVPB Q24H [facility] Stop: 05/04/19 14:00 Last Admin: 05/02/19 13:53 Dose: 100 mls/hr Losartan Potassium (Cozaar Tab*) 25 mg PO DAILY [facility] Last Admin: 05/03/19 08:18 Dose: 25 mg Melatonin (Melatonin) 3 mg PO BEDTIME [facility] Last Admin: 05/02/19 21:38 Dose: 3 mg Pto:Brimonidine 0. (025% 7.5 Ml Btl) 1 dose BOTH EYES TID [facility] Last Admin: 05/03/19 08:18 Dose: 1 dose Pantoprazole Sodium (Protonix Tab*) 40 mg PO DAILY [facility] Last Admin: 05/03/19 08:17 Dose: 40 mg Polyethylene Glycol/Electrolytes (Miralax*) 17 gm PO DAILY PRN PRN Reason: CONSTIPATION Thiamine HCl (Vitamin B-1 Tab*) 200 mg PO DAILY [facility] Last Admin: 05/03/19 08:17 Dose: 200 mg Tiotropium [place] (Spiriva Respimat 2.5 Mcg) 2 puff INH DAILY [facility] Last Admin: 05/03/19 09:54 Dose: 2 puff Vital Signs 05/02/19 05/02/19 05/02/19 16:00 19:52 19:57 Temperature 98.2 F 98.2 F Pulse Rate 95 101 Respiratory 18 20 20 Rate Blood Pressure 128/75 146/80 (mmHg) O2 Sat by Pulse 96 92 Oximetry 05/03/19 05/03/19 05/03/19 00:00 03:56 07:26 Temperature 97.8 F 97.8 F Pulse Rate 91 79 Respiratory 20 18 20 Rate Blood Pressure 136/76 115/67 (mmHg) O2 Sat by Pulse 92 91 Oximetry 05/03/19 05/03/19 07:32 10:34 Temperature 97.7 F 97.6 F Pulse Rate 82 88 Respiratory 18 18 Rate Blood Pressure 133/73 144/80 (mmHg) O2 Sat by Pulse 96 97 Oximetry Intake and Output Last 24 Hours 05/01/19 05/02/19 05/03/19 05/04/19 06:59 06:59 06:59 06:59 Intake Total 1267 557.8 480 Output Total 2175 1200 320 Balance -908 -642.2 160 Weight 248 lb 7.375 oz 244 lb 11.41 oz Intake: IV Fluids 992 147.8 LR 831 Mag Sulfate 112 NS 161 35.8 IVPB 155 LR 105 NS 50 Oral 120 410 480 Output: Urine 1100 1000 320 Hahn 625 200 Straight Cath 450 Other: Estimated Void Medium Large Date of Last Bowel 05/01/2019 Movement # Bowel Movements 1 1 Estimated Stool Amount Large Medium # Voids 1 Oxygen Devices in Use Now: Nasal Cannula Neurology Exam: General: Well nourished, well developed, and in no acute distress HEENT: Normocephelic/atraumatic, sclera anicteric, mucous membranes moist Neck: Supple Chest: Clear to auscultation bilaterally Cardiovascular: Regular rate and rhythm without murmurs, rubs, gallops Abdomen: Soft, non-tender/non-distended Extremities: No clubbing, cyanosis, or edema Neurological Findings: Awake, alert, and oriented to person, place, and time. Speech: fluent without dysarthria, repetition intact Cranial Nerve: PERRL, EOM intact, VFF, no nystagmus, face symmetric bilaterally , facial sensation intact, hearing intact to finger rub bilaterally, palate elevates symmetrically, tongue midline, SCM and Trapezius 5/5 Motor: 5/5 throughout, proximal and distal extremities x4 tone/bulk normal Sensation: intact to LT bilaterally upper and lower extremities Deep Tendon Reflex: symmetric in the upper/lower extremities, 1 plus biceps, 2 plus patella, 1 plus BR Babinski - down going Finger to nose in tact, intention tremor noted with finger to nose, difficulty with TASHA particularly with foot stomping Gait: wide based, Result Diagrams: 05/03/19 05:14 05/03/19 05:14 Additional Lab and Data: Lab Results 04/23/19 Range/Units 20:24 WBC 10.3 (3.5-10.8) 10^3/uL RBC 4.24 (4.18-5.48) 10^6 /uL Hgb 13.9 L (14.0-18.0) g/dL Hct 41 L (42-52) % MCV 98 H (80-94) fL MCH 33 H (27-31) pg MCHC 34 (31-36) g/dL RDW 14 (10-15) % Plt Count 187 (150-450) 10^3/uL MPV 8.6 (7.4-10.4) fL Neut % (Auto) 82.2 % Lymph % (Auto) 9.1 % [place] % (Auto) 7.3 % Eos % (Auto) 0.7 % Baso % (Auto) 0.7 % Absolute Neuts (auto) 8.5 H (1.5-7.7) 10^3/ul Absolute Lymphs (auto) 0.9 L (1.0-4.8) 10^3/ul Absolute Monos (auto) 0.8 (0-0.8) 10^3/ul Absolute Eos (auto) 0.1 (0-0.6) 10^3/ul Absolute Basos (auto) 0.1 (0-0.2) 10^3/ul Absolute Nucleated RBC 0.0 10^3/ul Nucleated RBC % 0.0 Microbiology and Other Data: Microbiology 04/29/19 02:00 Gram Stain - Final Sputum Expectorated Sputum Culture - Final Staphylococcus Aureus Normal Lucrecia 04/23/19 23:40 Nasal Screen MRSA (PCR) - Final Nasal Mrsa Not Detected Assessment/Plan 63 y/o male patient presenting to [facility] with complaints of AMS. He was seen previous in the ED and given librium for etoh withdraw but came back due to AMS. He was intubated for resp failure. He reported taking too much librium and recent stopped drinking prior to admission. He remained hypercapnic at times requiring BIpap. We were asked to eval as after being intubated his AMS persisted. AMS -multifactorial (etoh use, librium, hypercapnia, intubation, icu stay, ammonia elevation, infection CAP, liver disease) -EEG negative for seizure -MRI negative for acute CVA -slowly clearing -would minimize CO2 retention -replace electrolytes -consider laculose for elevated ammonia -continue Bipap -supportive care -he is improving -suspect toxic metabolic encephalopathy Cardiomyopathy -per primary team Respiratory Failure -per primary team COPD with CAP -per primary team Hepatomegaly -per primary team HTN -per primary team DM -per primary team At this point neurology will sign off. He is improving. Suspect his AMS is multifactorial. Would continue supportive care. If he worsens please do not hesitate to contact us.
[2019-05-03] MEDS: cefTRIAXone(*) 1 GM in NS 0.9% 50 ML* 50 ML IVPB SCH (13:56)
[2019-05-03] MEDS ORDERED: Furosemide IV* 10 MG/ML VIAL (40 MG) IV ONE (17:44)
--- NOTE | 2019-05-03 17:44 | PN ---
Subjective Date of Service: 05/03/19 Interval History: Mr. Rice states he is doing well. He continues to have a productive cough with SOB/MINAYA without fever, chills, sweats, malaise. He c/o headache and decreased appetite. He is hopeful for d/c to [facility] at [facility]. He has no other complaints today. Objective Active Medications: Acetaminophen (Tylenol Tab*) 650 mg PO Q6H PRN PRN Reason: PAIN - MILD Last Admin: 05/03/19 15:35 Dose: 650 mg Albuterol/Ipratropium (Duoneb (Albuterol 2.5 Mg/Ipratropium 0.5 Mg)) 1 neb INH Q4H PRN PRN Reason: SOB/WHEEZING Last Admin: 04/28/19 10:39 Dose: 1 neb Artificial Tears (Lacrilube Oint*) 1 applic BOTH EYES Q4H PRN PRN Reason: DRY EYE Aspirin (Aspirin Ec Tab*) 81 mg PO DAILY [facility] Last Admin: 05/03/19 08:18 Dose: 81 mg Atorvastatin Calcium (Lipitor*) 40 mg PO DAILY [facility] Last Admin: 05/03/19 08:18 Dose: 40 mg Enoxaparin Sodium (Lovenox(*)) 40 mg SUBCUT Q24H [facility] Last Admin: 05/03/19 08:18 Dose: 40 mg Folic Acid (Folvite Tab*) 1 mg PO DAILY [facility] Last Admin: 05/03/19 08:18 Dose: 1 mg Heparin Sodium (Porcine) (Heparin Flush Picc/Ml/Cvc(*)) 1 - 3 ml FLUSH 0600, 1800 [facility]; Protocol Last Admin: 05/03/19 05:13 Dose: 1 ml Hydralazine HCl (Apresoline Iv*) 10 mg IV SLOW PU Q6H PRN PRN Reason: SYSTOLIC BP GREATER THAN: 160 Ceftriaxone Sodium 1 gm/ (Sodium Chloride) 50 mls @ 100 mls/hr IVPB Q24H [facility] Stop: 05/04/19 14:00 Last Admin: 05/03/19 13:56 Dose: 100 mls/hr Losartan Potassium (Cozaar Tab*) 25 mg PO DAILY [facility] Last Admin: 05/03/19 08:18 Dose: 25 mg Melatonin (Melatonin) 3 mg PO BEDTIME [facility] Last Admin: 05/02/19 21:38 Dose: 3 mg Pto:Brimonidine 0. (025% 7.5 Ml Btl) 1 dose BOTH EYES TID [facility] Last Admin: 05/03/19 13:56 Dose: 1 dose Pantoprazole Sodium (Protonix Tab*) 40 mg PO DAILY [facility] Last Admin: 05/03/19 08:17 Dose: 40 mg Polyethylene Glycol/Electrolytes (Miralax*) 17 gm PO DAILY PRN PRN Reason: CONSTIPATION Thiamine HCl (Vitamin B-1 Tab*) 200 mg PO DAILY [facility] Last Admin: 05/03/19 08:17 Dose: 200 mg Tiotropium [place] (Spiriva Respimat 2.5 Mcg) 2 puff INH DAILY [facility] Last Admin: 05/03/19 09:54 Dose: 2 puff Vital Signs: Temp Pulse Resp BP Pulse Ox 97.8 F 90 18 127/69 97 05/03/19 15:47 05/03/19 15:47 05/03/19 15:47 05/03/19 15:47 05/03/19 15:47 Oxygen Devices in Use Now: Nasal Cannula Appearance: Mr. Rice is a middle-aged white male who is sitting in his chair with LE at floor. He appears to be in no acute distress and is breathing comfortably with NC in place. Eyes: No Scleral Icterus, PERRLA Ears/Nose/Mouth/Throat: NL Teeth, Lips, Gums, Clear Oropharnyx, Mucous Membranes Moist Neck: NL Appearance and Movements; NL JVP, Trachea Midline Respiratory: Symmetrical Chest Expansion and Respiratory Effort, - - Absent breath sounds on L; R clear to ausculation Cardiovascular: NL Sounds; No Murmurs; No JVD, RRR, - - 2+ pitting edema to b/l LE Abdominal: NL Sounds; No Tenderness; No Distention, No Hepatosplenomegaly Extremities: No Clubbing, Cyanosis Neurological: Alert and Oriented x 3, NL Muscle Strength and Tone, - - CN II- XII grossly intact Result Diagrams: 05/03/19 05:14 05/03/19 05:14 Additional Lab and Data: Lab Results 04/23/19 Range/Units 20:24 WBC 10.3 (3.5-10.8) 10^3/uL RBC 4.24 (4.18-5.48) 10^6 /uL Hgb 13.9 L (14.0-18.0) g/dL Hct 41 L (42-52) % MCV 98 H (80-94) fL MCH 33 H (27-31) pg MCHC 34 (31-36) g/dL RDW 14 (10-15) % Plt Count 187 (150-450) 10^3/uL MPV 8.6 (7.4-10.4) fL Neut % (Auto) 82.2 % Lymph % (Auto) 9.1 % [place] % (Auto) 7.3 % Eos % (Auto) 0.7 % Baso % (Auto) 0.7 % Absolute Neuts (auto) 8.5 H (1.5-7.7) 10^3/ul Absolute Lymphs (auto) 0.9 L (1.0-4.8) 10^3/ul Absolute Monos (auto) 0.8 (0-0.8) 10^3/ul Absolute Eos (auto) 0.1 (0-0.6) 10^3/ul Absolute Basos (auto) 0.1 (0-0.2) 10^3/ul Absolute Nucleated RBC 0.0 10^3/ul Nucleated RBC % 0.0 Microbiology and Other Data: Microbiology 04/29/19 02:00 Gram Stain - Final Sputum Expectorated Sputum Culture - Final Staphylococcus Aureus Normal [place]cre[facility] 04/23/19 23:40 Nasal Screen MRSA (PCR) - Final Nasal Mrsa Not Detected Assess/Plan/Problems-Billing Assessment: 63 yom PMHx alochol abuse, hypertriglyceridemia, KEY noncompliant, elevated L hemidiaphragm, presents to the ER with AMS likely d/t EtOH withdrawal, libruim use, respiratory failure requiring intubation initially; now on O2 and BIPAP at night; found to have alcoholic CM. - Patient Problems (1) Toxic metabolic encephalopathy Comment: -suspected to be multifactorial, including librium use, alcohol withdrawal, hepatic encephalopathy, hypoxia/hypercapnia with respiratory failure -appears to be improving -neuro consulted; thank you for recommendations -no further studies recommended at this time (2) Acute on chronic respiratory failure with hypoxia and hypercapnia Comment: -pt presents with hypoxia, hypercapnia -required intubation; now extubated -continue O2, wean as able -continue BIPAP at bedtime/while sleeping (3) Alcoholic cardiomyopathy Comment: -TTE EF: 30-35% -continue ARB -lasix 40 IV now for LE edema -continue asa, statin -continue alcohol abstinence -follow up with cardiology (4) CAP (community acquired pneumonia) Comment: -afebrile, without leukocytosis -continued cough since extubation -received 3d azithro; today is day 8 ceftriaxone (5) COPD (chronic obstructive pulmonary disease) Comment: -likely COPD; does not appear to be in exacerbation -continue nebs -start tiotropium -recommend f/u with pulmonology (6) Hepatomegaly Comment: -pt presented with AMS, elevated ammonia likely contributing -patient with hepatomegaly without LFT changes -likely d/t EtOHism -continue folic acid, thiamine -follow with PCP and abstain from alcohol (7) HTN (hypertension) Comment: -SBP 120-140's -continue losartan (8) Electrolyte abnormality Comment: -mg repleted -continue to monitor and replace (9) Diabetes mellitus Comment: -HA1c 7.0 -would benefit from metformin after acute illness resolved (10) KEY (obstructive sleep apnea) Comment: -continue BIPAP at bedtime (11) DVT prophylaxis Comment: -lovenox (12) Full code status Status and Disposition: Inpatient. Discharge when stable. Likely d/c to [facility]. [facility] referral in.
[2019-05-03] MEDS: Melatonin 3 MG TAB PO SCH (22:21)
[2019-05-04] MEDS: Acetaminophen TAB* 325 MG PO PRN ×2 (04:32→20:11)
[2019-05-04 06:22] LABS: Hematocrit 37 % (42-52); Hemoglobin 12.4 g/dL (14.0-18.0); Mean Corpuscular HGB Conc 33 g/dL (31-36); Mean Corpuscular Hemoglobin 32 pg (27-31); Mean Corpuscular Volume 96 fL (80-94); Mean Platelet Volume 8.4 fL (7.4-10.4); Platelet Count 303 10^3/uL (150-450); Red Blood Count 3.91 10^6 /uL (4.18-5.48); Red Cell Distribution Width 14 % (10-15); White Blood Count 9.1 10^3/uL (3.5-10.8)
[2019-05-04 06:42] LABS: Albumin 3.4 g/dL (3.2-5.2); Albumin/Globulin Ratio 1.1 (1-3); BUN/Creatinine Ratio 18.2 (8-20); Calcium 9.7 mg/dL (8.6-10.3); EGFR African American 124.3 (>60); EGFR Non-African American 102.7 (>60); Globulin 3.2 g/dL (2-4); Magnesium 1.7 mg/dL (1.9-2.7); Phosphorus 3.5 mg/dL (2.5-5.0); Potassium 3.7 mmol/L (3.5-5.0); Total Bilirubin 0.4 mg/dL (0.2-1.0); Total Protein 6.6 g/dL (6.4-8.9)
[2019-05-04] MEDS ORDERED: Magnesium Sulfate 2 GM IV* 2 GM/50 ML BAG IVPB ONE (08:01)
[2019-05-04] MEDS: SPIRIVA Respimat* (tiotropium) 2.5 mcg/inh Inhaler INH SCH (08:10)
--- NOTE | 2019-05-04 08:23 | PN ---
Subjective Date of Service: 05/04/19 Interval History: Patient is eating breakfast and brother at bedside. His brother agrees he is essentially at his mental status baseline. Patient tells me he will consider drug and alcohol rehab, but he will think about it. His brother states he went to drug and alcohol rehab at [facility] in the past. Patient tells me his breathing feels comfortable. Denies chest pain, abd pain, dizziness/ lightheadedness, fever/chills. Objective Active Medications: Acetaminophen (Tylenol Tab*) 650 mg PO Q6H PRN PRN Reason: PAIN - MILD Last Admin: 05/04/19 04:32 Dose: 650 mg Albuterol/Ipratropium (Duoneb (Albuterol 2.5 Mg/Ipratropium 0.5 Mg)) 1 neb INH Q4H PRN PRN Reason: SOB/WHEEZING Last Admin: 04/28/19 10:39 Dose: 1 neb Artificial Tears (Lacrilube Oint*) 1 applic BOTH EYES Q4H PRN PRN Reason: DRY EYE Aspirin (Aspirin Ec Tab*) 81 mg PO DAILY [facility] Last Admin: 05/03/19 08:18 Dose: 81 mg Atorvastatin Calcium (Lipitor*) 40 mg PO DAILY [facility] Last Admin: 05/03/19 08:18 Dose: 40 mg Enoxaparin Sodium (Lovenox(*)) 40 mg SUBCUT Q24H [facility] Last Admin: 05/03/19 08:18 Dose: 40 mg Folic Acid (Folvite Tab*) 1 mg PO DAILY [facility] Last Admin: 05/03/19 08:18 Dose: 1 mg Heparin Sodium (Porcine) (Heparin Flush Picc/Ml/Cvc(*)) 1 - 3 ml FLUSH 0600, 1800 [facility]; Protocol Last Admin: 05/04/19 05:57 Dose: 1 ml Hydralazine HCl (Apresoline Iv*) 10 mg IV SLOW PU Q6H PRN PRN Reason: SYSTOLIC BP GREATER THAN: 160 Ceftriaxone Sodium 1 gm/ (Sodium Chloride) 50 mls @ 100 mls/hr IVPB Q24H [facility] Stop: 05/04/19 14:00 Last Admin: 05/03/19 13:56 Dose: 100 mls/hr Magnesium Sulfate (Magnesium Sulfate 2 Gm Iv*) 2 gm in 50 mls @ 50 mls/hr IVPB ONCE ONE Stop: 05/04/19 09:00 Losartan Potassium (Cozaar Tab*) 25 mg PO DAILY [facility] Last Admin: 05/03/19 08:18 Dose: 25 mg Melatonin (Melatonin) 3 mg PO BEDTIME [facility] Last Admin: 05/03/19 22:21 Dose: 3 mg Pto:Brimonidine 0. (025% 7.5 Ml Btl) 1 dose BOTH EYES TID [facility] Last Admin: 05/03/19 22:21 Dose: 1 dose Pantoprazole Sodium (Protonix Tab*) 40 mg PO DAILY [facility] Last Admin: 05/03/19 08:17 Dose: 40 mg Polyethylene Glycol/Electrolytes (Miralax*) 17 gm PO DAILY PRN PRN Reason: CONSTIPATION Thiamine HCl (Vitamin B-1 Tab*) 200 mg PO DAILY [facility] Last Admin: 05/03/19 08:17 Dose: 200 mg Tiotropium [place] (Spiriva Respimat 2.5 Mcg) 2 puff INH DAILY [facility] Last Admin: 05/03/19 09:54 Dose: 2 puff Vital Signs - 8 hr 05/04/19 05/04/19 05/04/19 02:59 03:52 07:43 Temperature 97.7 F 97.2 F Pulse Rate 81 74 81 Respiratory 20 20 18 Rate Blood Pressure 105/58 133/75 (mmHg) O2 Sat by Pulse 94 100 98 Oximetry Oxygen Devices in Use Now: None Appearance: Obese, white male, sitting in chair, appearing comfortable and in NAD Eyes: No Scleral Icterus, - - PERRL Ears/Nose/Mouth/Throat: Mucous Membranes Moist Neck: NL Appearance and Movements; NL JVP Respiratory: Symmetrical Chest Expansion and Respiratory Effort, - - left lung with significantly diminished breath sounds posteriorly but lung sounds clear at left lung apex; right lung with faint crackle in right lung base and otherwise clear; not respiring with accessory muscle use Cardiovascular: NL Sounds; No Murmurs; No JVD, RRR Abdominal: - - abd soft, nontender, nondistended Extremities: No Clubbing, Cyanosis, - - +2 pitting edema pretibially bilaterally up to approx 5 cm below knees Skin: No Rash or Ulcers Neurological: Alert and Oriented x 3, NL Muscle Strength and Tone Result Diagrams: 05/04/19 06:00 05/04/19 17:11 Additional Lab and Data: Lab Results 04/23/19 Range/Units 20:24 WBC 10.3 (3.5-10.8) 10^3/uL RBC 4.24 (4.18-5.48) 10^6 /uL Hgb 13.9 L (14.0-18.0) g/dL Hct 41 L (42-52) % MCV 98 H (80-94) fL MCH 33 H (27-31) pg MCHC 34 (31-36) g/dL RDW 14 (10-15) % Plt Count 187 (150-450) 10^3/uL MPV 8.6 (7.4-10.4) fL Neut % (Auto) 82.2 % Lymph % (Auto) 9.1 % [place] % (Auto) 7.3 % Eos % (Auto) 0.7 % Baso % (Auto) 0.7 % Absolute Neuts (auto) 8.5 H (1.5-7.7) 10^3/ul Absolute Lymphs (auto) 0.9 L (1.0-4.8) 10^3/ul Absolute Monos (auto) 0.8 (0-0.8) 10^3/ul Absolute Eos (auto) 0.1 (0-0.6) 10^3/ul Absolute Basos (auto) 0.1 (0-0.2) 10^3/ul Absolute Nucleated RBC 0.0 10^3/ul Nucleated RBC % 0.0 Microbiology and Other Data: Microbiology 04/29/19 02:00 Gram Stain - Final Sputum Expectorated Sputum Culture - Final Staphylococcus Aureus Normal Lucrecia 04/23/19 23:40 Nasal Screen MRSA (PCR) - Final Nasal Mrsa Not Detected Assess/Plan/Problems-Billing Assessment: 63 yom PMHx alochol abuse, hypertriglyceridemia, KEY noncompliant, elevated L hemidiaphragm, presents to the ER with AMS likely d/t EtOH withdrawal, libruim use, respiratory failure requiring intubation initially; now on O2 and BIPAP at night; found to have alcoholic CM. - Patient Problems (1) Acute on chronic respiratory failure with hypoxia and hypercapnia Current Visit: Yes Status: Acute Code(s): J96.21 - ACUTE AND CHRONIC RESPIRATORY FAILURE WITH HYPOXIA; J96.22 - ACUTE AND CHRONIC RESPIRATORY FAILURE WITH HYPERCAPNIA SNOMED Code(s): 96215809947913 Comment: -pt presents with hypoxia, hypercapnia -required intubation previously. Extubated 04/26/19 -continue O2, wean as able; on 5L -continue BiPAP at bedtime/while sleeping. -unclear if underlying COPD. Will need f/u with pulm outpatient. Started tiotropium during this hospital stay (2) Hypercapnia Current Visit: Yes Status: Acute Code(s): R06.89 - OTHER ABNORMALITIES OF BREATHING SNOMED Code(s): 83881564 Comment: -hypercapnia worse today -Reportedly poor adherence to BiPAP last night per RT. -Received approx 2 hours BiPAP during the day today. Hypercapnia worse in PM, starting BiPAP early for the evening -pH wnl on ABG -perhaps related to IV diuresis, poor BiPAP adherence likely contributing as well -starting acetazolamide x2 days (3) Alcoholic cardiomyopathy Current Visit: Yes Status: Acute Code(s): I42.6 - ALCOHOLIC CARDIOMYOPATHY SNOMED Code(s): 700406797 Comment: -suspected based on significant alcohol use and TTE EF: 30-35% -continue ARB -changing IV lasix to po 40mg due to suspicion of contraction alkalosis, though ABG pending -continue asa, statin -continue alcohol abstinence -starting metoprolol tartrate 12.5mg po bid -pulmonary edema appears improved on CXR today, left hemidiaphragm elevation noted and is chronic -follow up with cardiology outpatient (4) CAP (community acquired pneumonia) Current Visit: Yes Status: Acute Code(s): J18.9 - PNEUMONIA, UNSPECIFIED ORGANISM SNOMED Code(s): 780675367 Comment: -afebrile, without leukocytosis -continued cough since extubation -received 3d azithro 500mg; today is day 9 ceftriaxone, will d/c (5) Toxic metabolic encephalopathy Current Visit: Yes Status: Acute Code(s): G92 - TOXIC ENCEPHALOPATHY SNOMED Code(s): 702094234 Comment: -CT and MRI of brain without acute findings -previously with hyperammonemia but resolved without lactulose -suspected to be multifactorial, including librium use, alcohol withdrawal, hepatic encephalopathy, hypoxia/hypercapnia with respiratory failure -appears to be improving -neuro consulted. No further studies recommended at this time -mentation near baseline today (6) Diabetes mellitus Current Visit: Yes Status: Acute Code(s): E11.9 - TYPE 2 DIABETES MELLITUS WITHOUT COMPLICATIONS SNOMED Code(s): 69551308 Comment: -HA1c 7.0 -would benefit from metformin after acute illness resolved -morning ABGs only minimally elevated -start fingersticks AC to further evaluate need for lispro SS during hospital stay (7) Hepatomegaly Current Visit: Yes Status: Acute Code(s): R16.0 - HEPATOMEGALY, NOT ELSEWHERE CLASSIFIED SNOMED Code(s): 86925333 Comment: -patient with hepatomegaly without LFT changes -likely d/t alcohol use -continue folic acid, thiamine -follow with PCP and abstain from alcohol (8) Electrolyte abnormality Current Visit: Yes Status: Acute Code(s): E87.8 - OTH DISORDERS OF ELECTROLYTE AND FLUID BALANCE, NEC SNOMED Code(s): 651744183 Comment: -requires further mg repletion today -likely related to diuresis -will schedule magnesium oxide po -giving additional potassium po supplement in setting of diuresis though not hypokalemic (9) HTN (hypertension) Current Visit: Yes Status: Acute Code(s): I10 - ESSENTIAL (PRIMARY) HYPERTENSION SNOMED Code(s): 86836091 Comment: -normotensive -continue losartan (10) KEY (obstructive sleep apnea) Current Visit: Yes Status: Acute Code(s): G47.33 - OBSTRUCTIVE SLEEP APNEA ( ADULT) (PEDIATRIC) SNOMED Code(s): 42031390 Comment: -continue BiPAP at bedtime (11) Alcohol use Current Visit: Yes Status: Acute Code(s): Z72.89 - OTHER PROBLEMS RELATED TO LIFESTYLE SNOMED Code(s): 821032 Comment: -patient agreeable to alcohol cessation -considering drug and alcohol inpatient rehab at discharge (12) DVT prophylaxis Current Visit: Yes Status: Acute Code(s): Z29.9 - ENCOUNTER FOR PROPHYLACTIC MEASURES, UNSPECIFIED SNOMED Code(s): 158618944 Comment: -lovenox (13) Full code status Current Visit: Yes Status: Acute Code(s): Z78.9 - OTHER SPECIFIED HEALTH STATUS SNOMED Code(s): 044877975 Status and Disposition: Inpatient. Discharge when stable. Likely d/c to [facility] vs drug and alcohol rehab if suitable or if patient agreeable
[2019-05-04] MEDS: Losartan TAB* 25 MG PO SCH (08:34)
[2019-05-04] MEDS: Atorvastatin* 40 MG TAB PO SCH (08:34)
[2019-05-04] MEDS: Pantoprazole TAB * 40 MG TAB PO SCH (08:34)
[2019-05-04] MEDS: Aspirin EC TAB* 81 MG TAB.EC PO SCH (08:34)
[2019-05-04] MEDS: Thiamine TAB* 100 MG TAB PO SCH (08:34)
[2019-05-04] MEDS: Enoxaparin(*) 40 MG/0.4 ML SYR SUBCUT SCH (08:34)
[2019-05-04] MEDS: Folic Acid TAB* 1 MG PO SCH (08:34)
[2019-05-04] MEDS: BRIMONIDINE 0.025% BOTH EYES SCH ×3 (08:35→20:07)
[2019-05-04] MEDS ORDERED: Furosemide TAB* 40 MG PO SCH (09:00)
[2019-05-04] MEDS: cefTRIAXone(*) 1 GM in NS 0.9% 50 ML* 50 ML IVPB SCH (12:43)
[2019-05-04] MEDS: acetaZOLAMIDE TAB* 250 MG PO SCH (12:43)
[2019-05-04] MEDS ORDERED: Potassium Chlor TAB* 20 MEQ TAB.ER PO ONE (13:59)
[2019-05-04 17:44] LABS: BUN/Creatinine Ratio 18.5 (8-20); Calcium 9.6 mg/dL (8.6-10.3); EGFR African American 101.2 (>60); EGFR Non-African American 83.6 (>60); Potassium 3.7 mmol/L (3.5-5.0)
[2019-05-04] MEDS: Melatonin 3 MG TAB PO SCH (20:06)
[2019-05-04] MEDS: Metoprolol Tartrate TAB* 25 MG PO SCH (20:06)
[2019-05-05 04:43] LABS: Hematocrit 38 % (42-52); Hemoglobin 12.1 g/dL (14.0-18.0); Mean Corpuscular HGB Conc 32 g/dL (31-36); Mean Corpuscular Hemoglobin 31 pg (27-31); Mean Corpuscular Volume 96 fL (80-94); Mean Platelet Volume 8.3 fL (7.4-10.4); Platelet Count 311 10^3/uL (150-450); Red Blood Count 3.91 10^6 /uL (4.18-5.48); Red Cell Distribution Width 14 % (10-15); White Blood Count 9.2 10^3/uL (3.5-10.8)
[2019-05-05 05:10] LABS: Albumin 3.4 g/dL (3.2-5.2); BUN/Creatinine Ratio 19.1 (8-20); Calcium 9.7 mg/dL (8.6-10.3); EGFR African American 98.7 (>60); EGFR Non-African American 81.6 (>60); Globulin 3.5 g/dL (2-4); Magnesium 1.9 mg/dL (1.9-2.7); Phosphorus 4.6 mg/dL (2.5-5.0); Total Bilirubin 0.3 mg/dL (0.2-1.0); Total Protein 6.9 g/dL (6.4-8.9)
[2019-05-05] MEDS: SPIRIVA Respimat* (tiotropium) 2.5 mcg/inh Inhaler INH SCH (08:13)
[2019-05-05] MEDS: Enoxaparin(*) 40 MG/0.4 ML SYR SUBCUT SCH (08:23)
[2019-05-05] MEDS: BRIMONIDINE 0.025% BOTH EYES SCH ×3 (08:23→22:00)
[2019-05-05] MEDS: Metoprolol Tartrate TAB* 25 MG PO SCH ×2 (08:27→21:29)
[2019-05-05] MEDS: Folic Acid TAB* 1 MG PO SCH (08:28)
[2019-05-05] MEDS: Atorvastatin* 40 MG TAB PO SCH (08:28)
[2019-05-05] MEDS: Pantoprazole TAB * 40 MG TAB PO SCH (08:28)
[2019-05-05] MEDS: Aspirin EC TAB* 81 MG TAB.EC PO SCH (08:29)
[2019-05-05] MEDS: Losartan TAB* 25 MG PO SCH (08:29)
[2019-05-05] MEDS: Magnesium Oxide TAB* 400 MG PO SCH (08:29)
[2019-05-05] MEDS: Thiamine TAB* 100 MG TAB PO SCH (08:30)
[2019-05-05] MEDS: acetaZOLAMIDE TAB* 250 MG PO SCH (08:30)
[2019-05-05] MEDS ORDERED: Furosemide IV* 10 MG/ML VIAL (40 MG) IV SLOW PU SCH (09:00)
--- NOTE | 2019-05-05 09:13 | PN ---
Subjective Date of Service: 05/05/19 Interval History: Mr. Rice reports feeling well today and being motivated to ambulate. He denies chest pain, SOB, nausea, vomiting or abdominal pain. He is requiring contact guard assist only with mobility and is working on endurance. Objective Active Medications: Acetaminophen (Tylenol Tab*) 650 mg PO Q6H PRN Acetazolamide (Diamox Tab*) 250 mg PO DAILY [facility] Albuterol/Ipratropium (Duoneb (Albuterol 2.5 Mg/Ipratropium 0.5 Mg)) 1 neb INH Q4H PRN Artificial Tears (Lacrilube Oint*) 1 applic BOTH EYES Q4H PRN Aspirin (Aspirin Ec Tab*) 81 mg PO DAILY [facility] Atorvastatin Calcium (Lipitor*) 40 mg PO DAILY [facility] Enoxaparin Sodium (Lovenox(*)) 40 mg SUBCUT Q24H [facility] Folic Acid (Folvite Tab*) 1 mg PO DAILY [facility] Furosemide (Lasix Iv*) 40 mg IV SLOW PU DAILY [facility] Heparin Sodium (Porcine) (Heparin Flush Picc/Ml/Cvc(*)) 1 - 3 ml FLUSH 0600, 1800 [facility]; Protocol Hydralazine HCl (Apresoline Iv*) 10 mg IV SLOW PU Q6H PRN Losartan Potassium (Cozaar Tab*) 25 mg PO DAILY [facility] Magnesium Oxide (Magox 400 Tab*) 400 mg PO DAILY [facility] Melatonin (Melatonin) 3 mg PO BEDTIME [facility] Metoprolol Tartrate (Lopressor Tab*) 12.5 mg PO Q12HR [facility] Pto:Brimonidine 0. (025% 7.5 Ml Btl) 1 dose BOTH EYES TID [facility] Pantoprazole Sodium (Protonix Tab*) 40 mg PO DAILY [facility] Polyethylene Glycol/Electrolytes (Miralax*) 17 gm PO DAILY [facility] Thiamine HCl (Vitamin B-1 Tab*) 200 mg PO DAILY [facility] Tiotropium [place] (Spiriva Respimat 2.5 Mcg) 2 puff INH DAILY [facility] Vital Signs - 8 hr Vital Signs: Temp Pulse Resp BP Pulse Ox 97.2 F 72 18 105/70 97 05/05/19 07:52 05/05/19 08:17 05/05/19 08:17 05/05/19 07:52 05/05/19 08:17 Oxygen Devices in Use Now: Nasal Cannula Appearance: Male sitting up in chair in NAD Eyes: No Scleral Icterus Ears/Nose/Mouth/Throat: Mucous Membranes Moist Neck: Trachea Midline Respiratory: Symmetrical Chest Expansion and Respiratory Effort, Clear to Auscultation Cardiovascular: NL Sounds; No Murmurs; No JVD, - - +2 edema BLEs Extremities: - - +2 B LEs Skin: No Rash or Ulcers Neurological: Alert and Oriented x 3, NL Muscle Strength and Tone Nutrition: Taking PO's Result Diagrams: 05/05/19 04:39 05/05/19 04:39 Additional Lab and Data: . Microbiology and Other Data: . Assess/Plan/Problems-Billing Assessment: Mr. Rice is a 63 yom PMHx alochol abuse, hypertriglyceridemia, KEY noncompliant , elevated L hemidiaphragm, presents to the ER with AMS likely d/t EtOH withdrawal, librium use, respiratory failure requiring intubation initially; now on O2 and BIPAP at night; found to have alcoholic CM. - Patient Problems (1) Acute on chronic respiratory failure with hypoxia and hypercapnia Comment: - Persistent hypercapnia with inability to tolerate Bipap for extended periods of time. - Continue BiPAP as tolerated during the day today, at bedtime and while sleeping. - Weaned down to 3L NC - Required intubation during this admission. Extubated 04/26/19 - Unclear if underlying COPD. Will need f/u with pulm outpatient. Started tiotropium during this hospital stay - Needs outpatient pulmonology follow up. (2) Hypercapnia Comment: - Hypercapnia continues to worsen, but pH remains normal - Continued poor adherence to BiPAP, encourage use during the day, guafenisen prn and tessalon BID for cough as patient describes cough as making it difficult for him to tolerate bipap - Perhaps related to IV diuresis, poor BiPAP adherence likely contributing as well - Continue acetazolamide x2 days (3) Alcoholic cardiomyopathy Comment: - Echo with finding of EF: 30-35%, mcfp alcohol abuse - Continue losartan, metoprolol, aspirin, atorvastatin - Continue lasix po, continues to have significant LE edema - Recommend avoid alcohol - Recommend follow up with cardiology outpatient (4) CAP (community acquired pneumonia) Comment: - Resolved - Completed 3d azithro 500mg; 9d ceftriaxone (5) COPD (chronic obstructive pulmonary disease) Comment: - Improving, but hypercapneic due to inability to tolerate Bipap - Continue nebs and spiriva - Recommend f/u with pulmonology (6) KEY (obstructive sleep apnea) Comment: - With worsening hypercapnea - continue BiPAP at bedtime and while sleeping (7) Toxic metabolic encephalopathy Comment: - Improving - Suspected to be multifactorial, including librium use, alcohol withdrawal, hepatic encephalopathy, hypoxia/hypercapnia with respiratory failure - CT and MRI of brain without acute findings. Neuro consult appreciated. (8) Diabetes mellitus Comment: - HgbA1c 7.0 - Continue lispro SSI coverage with meals and consistent carb diet - Recommend metformin and PCP follow up at discharge (9) Electrolyte abnormality Comment: - Mag and K repleted (10) HTN (hypertension) Comment: - Normotensive - Continue losartan and metoprolol, lasix prn (11) Hepatomegaly Comment: - Patient with hepatomegaly without LFT changes - Follow with PCP and abstain from alcohol (12) Alcohol use Comment: - Considering drug and alcohol inpatient rehab at discharge (13) DVT prophylaxis Comment: -lovenox (14) Full code status Comment: Status and Disposition: Inpatient. Discharge when stable. Likely d/c to [facility] vs drug and alcohol rehab if suitable or if patient agreeable
[2019-05-05] MEDS: Melatonin 3 MG TAB PO SCH (21:29)
[2019-05-05] MEDS: GuaiFENesin DM 100 mg/10 mg in 5 ML UDC PO PRN (21:30)
[2019-05-05] MEDS: Benzonatate CAP* 100 MG PO SCH (21:30)
[2019-05-06 06:28] LABS: BUN/Creatinine Ratio 21.6 (8-20); Calcium 9.7 mg/dL (8.6-10.3); EGFR African American 95.2 (>60); EGFR Non-African American 78.7 (>60); Potassium 3.8 mmol/L (3.5-5.0)
[2019-05-06] MEDS: Folic Acid TAB* 1 MG PO SCH (07:11)
[2019-05-06] MEDS: Furosemide TAB* 40 MG PO SCH (07:11)
[2019-05-06] MEDS: Losartan TAB* 25 MG PO SCH (07:11)
[2019-05-06] MEDS: Magnesium Oxide TAB* 400 MG PO SCH (07:11)
[2019-05-06] MEDS: Thiamine TAB* 100 MG TAB PO SCH (07:11)
[2019-05-06] MEDS: Pantoprazole TAB * 40 MG TAB PO SCH (07:11)
[2019-05-06] MEDS: Metoprolol Tartrate TAB* 25 MG PO SCH ×2 (07:11→20:00)
[2019-05-06] MEDS: Benzonatate CAP* 100 MG PO SCH ×2 (07:11→19:55)
[2019-05-06] MEDS: Atorvastatin* 40 MG TAB PO SCH (07:11)
[2019-05-06] MEDS: Aspirin EC TAB* 81 MG TAB.EC PO SCH (07:11)
[2019-05-06] MEDS: BRIMONIDINE 0.025% BOTH EYES SCH ×3 (07:12→19:56)
--- NOTE | 2019-05-06 07:18 | PN ---
Subjective Date of Service: 05/06/19 Interval History: Mr. Rice reports that he is feeling well today. He continues to not be able to tolerate bipap. He continues to feel that he his productive cough is too bothersome to allow him to wear the bipap at all. He denies shortness of breath , chest pain, nausea, or abdominal pain. Nursing staff report that he continues to gain strength with mobility. Objective Active Medications: Acetaminophen (Tylenol Tab*) 650 mg PO Q6H PRN Albuterol/Ipratropium (Duoneb (Albuterol 2.5 Mg/Ipratropium 0.5 Mg)) 1 neb INH Q4H PRN Artificial Tears (Lacrilube Oint*) 1 applic BOTH EYES Q4H PRN Aspirin (Aspirin Ec Tab*) 81 mg PO DAILY [facility] Atorvastatin Calcium (Lipitor*) 40 mg PO DAILY [facility] Benzonatate (Tessalon Cap*) 100 mg PO BID [facility] Enoxaparin Sodium (Lovenox(*)) 40 mg SUBCUT Q24H [facility] Folic Acid (Folvite Tab*) 1 mg PO DAILY [facility] Furosemide (Lasix Tab*) 40 mg PO DAILY [facility] Guaifenesin/Dextromethorphan (Robitussin Dm 100 Mg/10 Mg In 5 Ml) 5 ml PO Q4H PRN Heparin Sodium (Porcine) (Heparin Flush Picc/Ml/Cvc(*)) 1 - 3 ml FLUSH 0600, 1800 [facility]; Protocol Hydralazine HCl (Apresoline Iv*) 10 mg IV SLOW PU Q6H PRN Losartan Potassium (Cozaar Tab*) 25 mg PO DAILY [facility] Magnesium Oxide (Magox 400 Tab*) 400 mg PO DAILY [facility] Melatonin (Melatonin) 3 mg PO BEDTIME [facility] Metoprolol Tartrate (Lopressor Tab*) 12.5 mg PO Q12HR [facility] Pto:Brimonidine 0. (025% 7.5 Ml Btl) 1 dose BOTH EYES TID [facility] Pantoprazole Sodium (Protonix Tab*) 40 mg PO DAILY [facility] Polyethylene Glycol/Electrolytes (Miralax*) 17 gm PO DAILY [facility] Thiamine HCl (Vitamin B-1 Tab*) 200 mg PO DAILY [facility] Tiotropium [place] (Spiriva Respimat 2.5 Mcg) 2 puff INH DAILY [facility] Vital Signs: Temp Pulse Resp BP Pulse Ox 97.9 F 82 18 121/62 95 05/06/19 07:09 05/06/19 07:09 05/06/19 07:09 05/06/19 07:09 05/06/19 07:09 Oxygen Devices in Use Now: Nasal Cannula Appearance: Male sitting up in chair in NAD Eyes: No Scleral Icterus Ears/Nose/Mouth/Throat: Mucous Membranes Moist Neck: Trachea Midline Respiratory: Symmetrical Chest Expansion and Respiratory Effort, Clear to Auscultation Cardiovascular: NL Sounds; No Murmurs; No JVD, - - +1 edema BLEs Abdominal: NL Sounds; No Tenderness; No Distention Extremities: - - +1 edema B LEs Skin: No Rash or Ulcers Neurological: Alert and Oriented x 3, NL Muscle Strength and Tone Nutrition: Taking PO's Result Diagrams: 05/05/19 04:39 05/06/19 05:50 Additional Lab and Data: . Microbiology and Other Data: . Assess/Plan/Problems-Billing Assessment: Mr. Rice is a 63 yom PMHx alochol abuse, hypertriglyceridemia, KEY noncompliant , elevated L hemidiaphragm, presents to the ER with AMS likely d/t EtOH withdrawal, librium use, respiratory failure requiring intubation initially; now on O2 and BIPAP at night; found to have alcoholic CM. - Patient Problems (1) Acute on chronic respiratory failure with hypoxia and hypercapnia Comment: - Resolving slowly, weaned down to 3L NC - Persistent compensated hypercapnia with inability to tolerate bipap - Required intubation during this admission, extubated 04/26/19 - Unclear if underlying COPD. Will need f/u with pulm outpatient. Started spiriva during this hospital stay (2) Hypercapnia Comment: - pH remains normal - Continued poor adherence to BiPAP, guafenisen prn and tessalon BID for cough as patient describes cough as making it difficult for him to tolerate bipap - Contraction alkalosis may have been contributing as well, completed acetazolamide x 2 days (3) Alcoholic cardiomyopathy Comment: - Echo with finding of EF: 30-35%, [facility] alcohol abuse - Continue losartan, metoprolol, aspirin, atorvastatin - Continue lasix po, continues to have significant LE edema - Recommend avoid alcohol - Recommend follow up with cardiology outpatient (4) CAP (community acquired pneumonia) Comment: - Resolved - Completed 3d azithro 500mg; 9d ceftriaxone (5) COPD (chronic obstructive pulmonary disease) Comment: - Continue nebs and spiriva - Recommend f/u with pulmonology (6) KEY (obstructive sleep apnea) Comment: - Continue to recommend BiPAP at bedtime and while sleeping (7) Toxic metabolic encephalopathy Comment: - Resolved. - Suspected to be multifactorial, including librium use, alcohol withdrawal, hepatic encephalopathy, hypoxia/hypercapnia with respiratory failure - CT and MRI of brain without acute findings. Neuro consult appreciated. (8) Diabetes mellitus Comment: - HgbA1c 7.0 - Continue lispro SSI coverage with meals and consistent carb diet - Recommend metformin and PCP follow up at discharge (9) Electrolyte abnormality Comment: - Mag and K repleted (10) HTN (hypertension) Comment: - Normotensive - Continue losartan and metoprolol, lasix prn (11) Gout Comment: - Left great toe MTP joint red and swollen - Start colchicine (12) Hepatomegaly Comment: - Patient with hepatomegaly without LFT changes - Follow with PCP and abstain from alcohol (13) Alcohol use Comment: - Considering drug and alcohol inpatient rehab at discharge (14) DVT prophylaxis Comment: -lovenox (15) Full code status Comment: Status and Disposition: Inpatient. Anticipate discharge to [facility] for rehab prior to returning home with family.
[2019-05-06] MEDS: Enoxaparin(*) 40 MG/0.4 ML SYR SUBCUT SCH (07:29)
[2019-05-06] MEDS: SPIRIVA Respimat* (tiotropium) 2.5 mcg/inh Inhaler INH SCH (09:09)
[2019-05-06] MEDS: Colchicine* 0.6 MG TAB PO SCH ×3 (10:02→19:56)
[2019-05-06] MEDS: Melatonin 3 MG TAB PO SCH (19:55)
[2019-05-06] MEDS: Acetaminophen TAB* 325 MG PO PRN (19:55)
[2019-05-07] MEDS: SPIRIVA Respimat* (tiotropium) 2.5 mcg/inh Inhaler INH SCH (08:07)
[2019-05-07] MEDS: Enoxaparin(*) 40 MG/0.4 ML SYR SUBCUT SCH (08:10)
[2019-05-07] MEDS: BRIMONIDINE 0.025% BOTH EYES SCH ×3 (08:10→21:21)
[2019-05-07] MEDS: Metoprolol Tartrate TAB* 25 MG PO SCH ×3 (08:11→21:20)
[2019-05-07] MEDS: Atorvastatin* 40 MG TAB PO SCH (08:16)
[2019-05-07] MEDS: Aspirin EC TAB* 81 MG TAB.EC PO SCH (08:16)
[2019-05-07] MEDS: Benzonatate CAP* 100 MG PO SCH ×2 (08:16→21:19)
[2019-05-07] MEDS: Losartan TAB* 25 MG PO SCH (08:17)
[2019-05-07] MEDS: Folic Acid TAB* 1 MG PO SCH (08:17)
[2019-05-07] MEDS: Furosemide TAB* 40 MG PO SCH (08:17)
[2019-05-07] MEDS: Pantoprazole TAB * 40 MG TAB PO SCH (08:17)
[2019-05-07] MEDS: Thiamine TAB* 100 MG TAB PO SCH (08:17)
[2019-05-07] MEDS: Magnesium Oxide TAB* 400 MG PO SCH (08:17)
[2019-05-07] MEDS: Colchicine* 0.6 MG TAB PO SCH (08:25)
[2019-05-07] MEDS: GuaiFENesin DM 100 mg/10 mg in 5 ML UDC PO PRN (08:28)
[2019-05-07] MEDS: Acetaminophen TAB* 325 MG PO PRN ×2 (13:43→21:18)
--- NOTE | 2019-05-07 15:23 | PN ---
Subjective Date of Service: 05/07/19 Interval History: Pt is feeling well. He is still coughing up thick sputum sometimes clear sometimes yellow to brownish. He can not tolerate the BiPAP because of that. He has been up and ambulating around the floor. He states he has done the loop 3 separate times today. He is still needing a walker but hopes by Tuesday he will not need it. Objective Active Medications: Acetaminophen (Tylenol Tab*) 650 mg PO Q6H PRN PRN Reason: PAIN - MILD Last Admin: 05/07/19 13:43 Dose: 650 mg Albuterol/Ipratropium (Duoneb (Albuterol 2.5 Mg/Ipratropium 0.5 Mg)) 1 neb INH Q4H PRN PRN Reason: SOB/WHEEZING Last Admin: 04/28/19 10:39 Dose: 1 neb Artificial Tears (Lacrilube Oint*) 1 applic BOTH EYES Q4H PRN PRN Reason: DRY EYE Aspirin (Aspirin Ec Tab*) 81 mg PO DAILY [facility] Last Admin: 05/07/19 08:16 Dose: 81 mg Atorvastatin Calcium (Lipitor*) 40 mg PO DAILY [facility] Last Admin: 05/07/19 08:16 Dose: 40 mg Benzonatate (Tessalon Cap*) 100 mg PO BID [facility] Last Admin: 05/07/19 08:16 Dose: 100 mg Colchicine (Colcrys*) 0.6 mg PO DAILY [facility] Last Admin: 05/07/19 08:25 Dose: 0.6 mg Enoxaparin Sodium (Lovenox(*)) 40 mg SUBCUT Q24H [facility] Last Admin: 05/07/19 08:10 Dose: 40 mg Folic Acid (Folvite Tab*) 1 mg PO DAILY [facility] Last Admin: 05/07/19 08:17 Dose: 1 mg Furosemide (Lasix Tab*) 40 mg PO DAILY [facility] Last Admin: 05/07/19 08:17 Dose: 40 mg Guaifenesin/Dextromethorphan (Robitussin Dm 100 Mg/10 Mg In 5 Ml) 5 ml PO Q4H PRN PRN Reason: COUGH Last Admin: 05/07/19 08:28 Dose: 5 ml Heparin Sodium (Porcine) (Heparin Flush Picc/Ml/Cvc(*)) 1 - 3 ml FLUSH 0600, 1800 [facility]; Protocol Last Admin: 05/07/19 08:10 Dose: Not Given Hydralazine HCl (Apresoline Iv*) 10 mg IV SLOW PU Q6H PRN PRN Reason: SYSTOLIC BP GREATER THAN: 160 Losartan Potassium (Cozaar Tab*) 25 mg PO DAILY [facility] Last Admin: 05/07/19 08:17 Dose: Not Given Magnesium Oxide (Magox 400 Tab*) 400 mg PO DAILY [facility] Last Admin: 05/07/19 08:17 Dose: 400 mg Melatonin (Melatonin) 3 mg PO BEDTIME [facility] Last Admin: 05/06/19 19:55 Dose: 3 mg Metoprolol Tartrate (Lopressor Tab*) 12.5 mg PO Q12HR [facility] Last Admin: 05/07/19 08:15 Dose: Not Given Pto:Brimonidine 0. (025% 7.5 Ml Btl) 1 dose BOTH EYES TID [facility] Last Admin: 05/07/19 13:43 Dose: 1 dose Pantoprazole Sodium (Protonix Tab*) 40 mg PO DAILY [facility] Last Admin: 05/07/19 08:17 Dose: 40 mg Polyethylene Glycol/Electrolytes (Miralax*) 17 gm PO DAILY PRN PRN Reason: CONSTIPATION Thiamine HCl (Vitamin B-1 Tab*) 200 mg PO DAILY [facility] Last Admin: 05/07/19 08:17 Dose: 200 mg Tiotropium [place] (Spiriva Respimat 2.5 Mcg) 2 puff INH DAILY [facility] Last Admin: 05/07/19 08:07 Dose: 2 puff Vital Signs - 8 hr 05/07/19 05/07/19 08:00 11:40 Temperature 97.3 F 98.2 F Pulse Rate 85 86 Respiratory 19 16 Rate Blood Pressure 103/57 107/64 (mmHg) O2 Sat by Pulse 98 97 Oximetry Oxygen Devices in Use Now: Nasal Cannula Appearance: Middle aged male sitting up in a chair, NAD Eyes: No Scleral Icterus Ears/Nose/Mouth/Throat: Mucous Membranes Moist Respiratory: Symmetrical Chest Expansion and Respiratory Effort, Clear to Auscultation, - - diminished on L base (chronically elevated hemidiaphragm) Cardiovascular: NL Sounds; No Murmurs; No JVD, RRR, - - 1+ B/L LE edema Abdominal: NL Sounds; No Tenderness; No Distention Extremities: No Clubbing, Cyanosis Skin: No Nodules or Sclerosis Neurological: Alert and Oriented x 3 Result Diagrams: 05/05/19 04:39 05/06/19 05:50 Additional Lab and Data: . Microbiology and Other Data: . Assess/Plan/Problems-Billing Mr. Rice is a 63 yom PMHx alcohol abuse, hypertriglyceridemia, KEY not on CPAP therapy, elevated L hemidiaphragm, presents to the ER with AMS likely d/t EtOH withdrawal, librium use, respiratory failure requiring intubation initially; now on O2 and BIPAP at night; found to have alcoholic CM. - Patient Problems (1) Acute on chronic respiratory failure with hypoxia and hypercapnia Current Visit: Yes Status: Acute Code(s): J96.21 - ACUTE AND CHRONIC RESPIRATORY FAILURE WITH HYPOXIA; J96.22 - ACUTE AND CHRONIC RESPIRATORY FAILURE WITH HYPERCAPNIA SNOMED Code(s): 94872688440985 Comment: Resolved. Pt still on 2L O2 but saturations are >95%. Will d/c supplemental O2 and monitor O2 sat. Pt with only 1 year history of smoking, no clear evidence of COPD. Should be followed up by pulmonology as an outpatient. Spiriva started this admission and can be continued on d/c at least until seen by pulmonology. (2) Toxic metabolic encephalopathy Current Visit: Yes Status: Acute Code(s): G92 - TOXIC ENCEPHALOPATHY SNOMED Code(s): 286323814 Comment: Pt wtih toxic metabolic encephalopathy on admission. Now resolved. Likely secondary to librium use for detox, hepatic encephaloapthy (resolved) and hypercapnia. (3) Alcoholic cardiomyopathy Current Visit: Yes Status: Acute Code(s): I42.6 - ALCOHOLIC CARDIOMYOPATHY SNOMED Code(s): 750570924 Comment: Pt with probable alcholic cardiomyopathy though will need ischemic work up once stabilized from this acute hospitalization. Continue metoprolol, losartan (new hold parameters added), ASA, lipitor. Continue lasix but decrease to 20mg daily. Creatinine is slowly climbing, perhaps from the patient getting dried out. LE edema seems to be less today. Pt is in agreement to abstain from drinking EtOH. He will need outpatient cardiology follow up. (4) CAP (community acquired pneumonia) Current Visit: Yes Status: Acute Code(s): J18.9 - PNEUMONIA, UNSPECIFIED ORGANISM SNOMED Code(s): 655677254 Comment: Pt was treated with ceftriaxone and azithromycin. Now resolved. (5) COPD (chronic obstructive pulmonary disease) Current Visit: Yes Status: Acute Code(s): J44.9 - CHRONIC OBSTRUCTIVE PULMONARY DISEASE, UNSPECIFIED SNOMED Code(s): 79817493 Comment: Unclear diagnosis given minimal smoking history. Will need outpatient pulmonology follow up. (6) Alcohol use Current Visit: Yes Status: Acute Code(s): Z72.89 - OTHER PROBLEMS RELATED TO LIFESTYLE SNOMED Code(s): 149451 Comment: Pt reports he had not drank in the days leading up to his hospitalization. This is also what he told me on admission. He was not clearly in alcohol withdrawal on admission. Encourage drug/alcohol inpatient rehab on d/ c. (7) Diabetes mellitus Current Visit: Yes Status: Acute Code(s): E11.9 - TYPE 2 DIABETES MELLITUS WITHOUT COMPLICATIONS SNOMED Code(s): 41260130 Comment: Pt with A1c of 7.0%. Pt has not been receiving any lispro coverage ( not ordered). Will start metformin 500mg BID. Monitor sugars. (8) HTN (hypertension) Current Visit: Yes Status: Acute Code(s): I10 - ESSENTIAL (PRIMARY) HYPERTENSION SNOMED Code(s): 72573720 Comment: BP under excellent control on losartan, metoprolol and lasix. (9) KEY (obstructive sleep apnea) Current Visit: Yes Status: Acute Code(s): G47.33 - OBSTRUCTIVE SLEEP APNEA ( ADULT) (PEDIATRIC) SNOMED Code(s): 04983652 Comment: [place] to encourage BiPAP use with sleep. (10) DVT prophylaxis Current Visit: Yes Status: Acute Code(s): Z29.9 - ENCOUNTER FOR PROPHYLACTIC MEASURES, UNSPECIFIED SNOMED Code(s): 577128554 Comment: lovenox (11) Full code status Current Visit: Yes Status: Acute Code(s): Z78.9 - OTHER SPECIFIED HEALTH STATUS SNOMED Code(s): 158485753 Comment: Status and Disposition: Inpatient. Anticipate discharge to [facility] for rehab prior to returning home with family.
[2019-05-07] MEDS: Melatonin 3 MG TAB PO SCH (21:19)
[2019-05-08] MEDS: BRIMONIDINE 0.025% BOTH EYES SCH ×3 (08:10→21:00)
[2019-05-08] MEDS: Enoxaparin(*) 40 MG/0.4 ML SYR SUBCUT SCH (08:10)
[2019-05-08] MEDS: Metoprolol Tartrate TAB* 25 MG PO SCH ×2 (08:11→20:58)
[2019-05-08] MEDS: Aspirin EC TAB* 81 MG TAB.EC PO SCH (08:12)
[2019-05-08] MEDS: Pantoprazole TAB * 40 MG TAB PO SCH (08:12)
[2019-05-08] MEDS: Losartan TAB* 25 MG PO SCH (08:12)
[2019-05-08] MEDS: Magnesium Oxide TAB* 400 MG PO SCH (08:12)
[2019-05-08] MEDS: Colchicine* 0.6 MG TAB PO SCH (08:12)
[2019-05-08] MEDS: Atorvastatin* 40 MG TAB PO SCH (08:12)
[2019-05-08] MEDS: Furosemide TAB* 20 MG PO SCH (08:12)
[2019-05-08] MEDS: Thiamine TAB* 100 MG TAB PO SCH (08:12)
[2019-05-08] MEDS: Folic Acid TAB* 1 MG PO SCH (08:12)
[2019-05-08] MEDS: Benzonatate CAP* 100 MG PO SCH ×2 (08:12→20:58)
[2019-05-08] MEDS: SPIRIVA Respimat* (tiotropium) 2.5 mcg/inh Inhaler INH SCH (08:16)
[2019-05-08] MEDS ORDERED: Furosemide TAB* 20 MG PO ONE (09:17)
--- NOTE | 2019-05-08 09:22 | PN ---
Subjective Date of Service: 05/08/19 Interval History: Mr. Rice is feeling fine today. Not any better or worse than yesterday. He has not been up ambulating yet this morning, but is motivated to do so. Still not able to tolerate BiPAP d/t sputum production. Denies CP or SOB. No concerns from nursing. Family History: Unchanged from Admission Social History: Unchanged from Admission Past Medical History: Unchanged from Admission Objective Active Medications: Acetaminophen (Tylenol Tab*) 650 mg PO Q6H PRN PAIN - MILD Albuterol/Ipratropium (Duoneb (Albuterol 2.5 Mg/Ipratropium 0.5 Mg)) 1 neb INH Q4H PRN SOB/WHEEZING Artificial Tears (Lacrilube Oint*) 1 applic BOTH EYES Q4H PRN DRY EYE Aspirin (Aspirin Ec Tab*) 81 mg PO DAILY [facility] Atorvastatin Calcium (Lipitor*) 40 mg PO DAILY [facility] Benzonatate (Tessalon Cap*) 100 mg PO BID [facility] Colchicine (Colcrys*) 0.6 mg PO DAILY [facility] Enoxaparin Sodium (Lovenox(*)) 40 mg SUBCUT Q24H [facility] Folic Acid (Folvite Tab*) 1 mg PO DAILY [facility] Furosemide (Lasix Tab*) 20 mg PO DAILY [facility] Guaifenesin/Dextromethorphan (Robitussin Dm 100 Mg/10 Mg In 5 Ml) 5 ml PO Q4H PRN COUGH Heparin Sodium (Porcine) (Heparin Flush Picc/Ml/Cvc(*)) 1 - 3 ml FLUSH 0600, 1800 [facility]; Protocol Hydralazine HCl (Apresoline Iv*) 10 mg IV SLOW PU Q6H PRN SYSTOLIC BP GREATER THAN: 160 Losartan Potassium (Cozaar Tab*) 25 mg PO DAILY [facility] Magnesium Oxide (Magox 400 Tab*) 400 mg PO DAILY [facility] Melatonin (Melatonin) 3 mg PO BEDTIME [facility] Metoprolol Tartrate (Lopressor Tab*) 12.5 mg PO Q12HR [facility] Pto:Brimonidine 0. (025% 7.5 Ml Btl) 1 dose BOTH EYES TID [facility] Pantoprazole Sodium (Protonix Tab*) 40 mg PO DAILY [facility] Polyethylene Glycol/Electrolytes (Miralax*) 17 gm PO DAILY [facility] Thiamine HCl (Vitamin B-1 Tab*) 200 mg PO DAILY [facility] Tiotropium [place] (Spiriva Respimat 2.5 Mcg) 2 puff INH DAILY [facility] Vital Signs - 8 hr 05/08/19 05/08/19 05/08/19 03:03 07:20 08:00 Temperature 97.1 F 97.6 F Pulse Rate 80 80 Respiratory 20 20 16 Rate Blood Pressure 100/61 108/68 (mmHg) O2 Sat by Pulse 92 96 Oximetry 05/08/19 08:17 Temperature Pulse Rate 80 Respiratory 15 Rate Blood Pressure (mmHg) O2 Sat by Pulse 96 Oximetry Oxygen Devices in Use Now: Nasal Cannula - 1L Appearance: Middle-aged male sitting in chair in NAD Eyes: No Scleral Icterus Ears/Nose/Mouth/Throat: Mucous Membranes Moist Neck: NL Appearance and Movements; NL JVP, Trachea Midline Respiratory: Symmetrical Chest Expansion and Respiratory Effort, - - Diminished throughout Cardiovascular: NL Sounds; No Murmurs; No JVD, RRR Abdominal: NL Sounds; No Tenderness; No Distention Extremities: - - Moderate nonpitting BLE Neurological: Alert and Oriented x 3 Lines/Tubes/Other Access: Clean, Dry and Intact Peripheral IV Nutrition: Taking PO's Result Diagrams: 05/05/19 04:39 05/06/19 05:50 Assess/Plan/Problems-Billing Assessment: Mr. Rice is a 63 yo M with PMH of alcohol abuse, hypertriglyceridemia, KEY not on CPAP therapy, elevated L hemidiaphragm; who presented to the ER with AMS likely d/t EtOH withdrawal, librium use, respiratory failure requiring intubation initially; now on O2 and BIPAP at night; found to have alcoholic CM. - Patient Problems (1) Acute on chronic respiratory failure with hypoxia and hypercapnia Code(s): J96.21 - ACUTE AND CHRONIC RESPIRATORY FAILURE WITH HYPOXIA; J96.22 - ACUTE AND CHRONIC RESPIRATORY FAILURE WITH HYPERCAPNIA Comment: - Resolving, now down to 1L - Requiring intubation earlier this admission - Only 1 year history of smoking, no clear evidence of COPD; should follow up with Pulmonology as an outpatient - Spiriva started this admission and can be continued on d/c at least until seen by pulmonology - Continue Spiriva (2) Alcoholic cardiomyopathy Code(s): I42.6 - ALCOHOLIC CARDIOMYOPATHY Comment: - Probable alcholic cardiomyopathy though will need ischemic work up once stabilized from this acute hospitalization and close Cardiology f/u - Echo shows EF 30-35% - BLE unchanged per patient - Patient agreeable to abstaining from EtOH - Continue metoprolol, losartan, aspirin, atorvastatin, furosemide (3) KEY (obstructive sleep apnea) Code(s): G47.33 - OBSTRUCTIVE SLEEP APNEA (ADULT) (PEDIATRIC) Comment: - Continue to encourage BiPAP use while sleeping - Overnight pulse ox tonight for home qualification (4) CAP (community acquired pneumonia) Code(s): J18.9 - PNEUMONIA, UNSPECIFIED ORGANISM Comment: - Now resolved, but still with significant sputum production - Completed course of azithromycin (3 days) and ceftriaxone (9 days) (5) Gout Code(s): M10.9 - GOUT, UNSPECIFIED Comment: - Left great toe MTP joint red and swollen - Continue colchicine (6) Toxic metabolic encephalopathy Code(s): G92 - TOXIC ENCEPHALOPATHY Comment: - Now resolved - Likely secondary to librium use for detox, hepatic encephaloapthy, and hypercapnia (7) Diabetes mellitus Code(s): E11.9 - TYPE 2 DIABETES MELLITUS WITHOUT COMPLICATIONS Comment: - A1c 7.0% - Start metformin (8) HTN (hypertension) Code(s): I10 - ESSENTIAL (PRIMARY) HYPERTENSION Comment: - Normotensive - Continue metoprolol, losartan, furosemide (9) Alcohol use Code(s): Z72.89 - OTHER PROBLEMS RELATED TO LIFESTYLE Comment: - Patient reports he had not drank in the days leading up to his hospitalization - Not clearly in alcohol withdrawal on admission - Encourage drug/alcohol inpatient rehab on d/c (10) DVT prophylaxis Code(s): Z29.9 - ENCOUNTER FOR PROPHYLACTIC MEASURES, UNSPECIFIED Comment: - Lovenox (11) Full code status Code(s): Z78.9 - OTHER SPECIFIED HEALTH STATUS Comment: Status and Disposition: Inpatient. Anticipate d/c home with brother when medically stable, likely 1-2 more days. Attending: Mimi Wynne
[2019-05-08] MEDS: metFORMIN* 500 MG TAB PO SCH (16:37)
[2019-05-08] MEDS: Melatonin 3 MG TAB PO SCH (20:58)
[2019-05-08] MEDS: Acetaminophen TAB* 325 MG PO PRN (20:58)
[2019-05-09 04:59] LABS: BUN/Creatinine Ratio 25.3 (8-20); Calcium 8.7 mg/dL (8.6-10.3); EGFR Non-African American 76.9 (>60)
[2019-05-09] MEDS: SPIRIVA Respimat* (tiotropium) 2.5 mcg/inh Inhaler INH SCH (07:42)
[2019-05-09] MEDS: Acetaminophen TAB* 325 MG PO PRN (07:58)
[2019-05-09] MEDS: metFORMIN* 500 MG TAB PO SCH ×2 (07:59→17:38)
[2019-05-09] MEDS: Enoxaparin(*) 40 MG/0.4 ML SYR SUBCUT SCH (07:59)
[2019-05-09] MEDS: Folic Acid TAB* 1 MG PO SCH (08:30)
[2019-05-09] MEDS: Magnesium Oxide TAB* 400 MG PO SCH (08:31)
[2019-05-09] MEDS: Benzonatate CAP* 100 MG PO SCH ×2 (08:31→20:42)
[2019-05-09] MEDS: Atorvastatin* 40 MG TAB PO SCH (08:31)
[2019-05-09] MEDS: Thiamine TAB* 100 MG TAB PO SCH (08:31)
[2019-05-09] MEDS: Aspirin EC TAB* 81 MG TAB.EC PO SCH (08:31)
[2019-05-09] MEDS: Losartan TAB* 25 MG PO SCH (08:31)
[2019-05-09] MEDS: Pantoprazole TAB * 40 MG TAB PO SCH (08:31)
[2019-05-09] MEDS: Furosemide TAB* 20 MG PO SCH (08:31)
[2019-05-09] MEDS: BRIMONIDINE 0.025% BOTH EYES SCH ×3 (08:31→20:41)
[2019-05-09] MEDS: Colchicine* 0.6 MG TAB PO SCH (08:32)
[2019-05-09] MEDS: Metoprolol Tartrate TAB* 25 MG PO SCH ×2 (08:32→20:42)
[2019-05-09] MEDS ORDERED: Furosemide TAB* 40 MG PO ONE (12:02)
--- NOTE | 2019-05-09 14:17 | PN ---
Subjective Date of Service: 05/09/19 Interval History: Mr. Rice is feeling well today. He offers no complaints this morning, but does feel weak on his LLE d/t edema. He does think this is somewhat improved. Denies CP or SOB. Has been up ambulating in the hallways this morning. Completed overnight pulse ox last night and did not wear BiPAP. No concerns from nursing. Family History: Unchanged from Admission Social History: Unchanged from Admission Past Medical History: Unchanged from Admission Objective Active Medications: Acetaminophen (Tylenol Tab*) 650 mg PO Q6H PRN PAIN - MILD Albuterol/Ipratropium (Duoneb (Albuterol 2.5 Mg/Ipratropium 0.5 Mg)) 1 neb INH Q4H PRN SOB/WHEEZING Artificial Tears (Lacrilube Oint*) 1 applic BOTH EYES Q4H PRN DRY EYE Aspirin (Aspirin Ec Tab*) 81 mg PO DAILY [facility] Atorvastatin Calcium (Lipitor*) 40 mg PO DAILY [facility] Benzonatate (Tessalon Cap*) 100 mg PO BID [facility] Colchicine (Colcrys*) 0.6 mg PO DAILY [facility] Enoxaparin Sodium (Lovenox(*)) 40 mg SUBCUT Q24H [facility] Folic Acid (Folvite Tab*) 1 mg PO DAILY [facility] Furosemide (Lasix Tab*) 20 mg PO DAILY [facility] Guaifenesin/Dextromethorphan (Robitussin Dm 100 Mg/10 Mg In 5 Ml) 5 ml PO Q4H PRN COUGH Heparin Sodium (Porcine) (Heparin Flush Picc/Ml/Cvc(*)) 1 - 3 ml FLUSH 0600, 1800 [facility]; Protocol Hydralazine HCl (Apresoline Iv*) 10 mg IV SLOW PU Q6H PRN SYSTOLIC BP GREATER THAN: 160 Losartan Potassium (Cozaar Tab*) 25 mg PO DAILY [facility] Magnesium Oxide (Magox 400 Tab*) 400 mg PO DAILY [facility] Melatonin (Melatonin) 3 mg PO BEDTIME [facility] Metformin HCl (Glucophage*) 500 mg PO 0800,1700 [facility] Metoprolol Tartrate (Lopressor Tab*) 12.5 mg PO Q12HR [facility] Pto:Brimonidine 0. (025% 7.5 Ml Btl) 1 dose BOTH EYES TID [facility] Pantoprazole Sodium (Protonix Tab*) 40 mg PO DAILY [facility] Polyethylene Glycol/Electrolytes (Miralax*) 17 gm PO DAILY PRN CONSTIPATION Thiamine HCl (Vitamin B-1 Tab*) 200 mg PO DAILY [facility] Tiotropium [place] (Spiriva Respimat 2.5 Mcg) 2 puff INH DAILY [facility] Vital Signs - 8 hr 05/09/19 05/09/19 07:39 11:05 Temperature 97.8 F 98.1 F Pulse Rate 82 90 Respiratory 20 20 Rate Blood Pressure 120/63 128/63 (mmHg) O2 Sat by Pulse 96 96 Oximetry Oxygen Devices in Use Now: Nasal Cannula - 3L Appearance: Middle-aged male sitting in chair in NAD Ears/Nose/Mouth/Throat: Mucous Membranes Moist Neck: NL Appearance and Movements; NL JVP, Trachea Midline Respiratory: Symmetrical Chest Expansion and Respiratory Effort, Clear to Auscultation - Diminished Cardiovascular: NL Sounds; No Murmurs; No JVD, RRR Abdominal: NL Sounds; No Tenderness; No Distention Extremities: - - +2 pitting BLE Neurological: Alert and Oriented x 3 Lines/Tubes/Other Access: Clean, Dry and Intact Peripheral IV Nutrition: Taking PO's Result Diagrams: 05/05/19 04:39 05/09/19 04:30 Assess/Plan/Problems-Billing Assessment: Mr. Rice is a 63 yo M with PMH of alcohol abuse, hypertriglyceridemia, KEY not on CPAP therapy, elevated L hemidiaphragm; who presented to the ER with AMS likely d/t EtOH withdrawal, librium use, respiratory failure requiring intubation initially; now on O2 and BIPAP at night; found to have alcoholic CM. - Patient Problems (1) Acute on chronic respiratory failure with hypoxia and hypercapnia Code(s): J96.21 - ACUTE AND CHRONIC RESPIRATORY FAILURE WITH HYPOXIA; J96.22 - ACUTE AND CHRONIC RESPIRATORY FAILURE WITH HYPERCAPNIA Comment: - Resolving, now down to 1L - Requiring intubation earlier this admission - Only 1 year history of smoking, no clear evidence of COPD; should follow up with Pulmonology as an outpatient - Spiriva started this admission and can be continued on d/c at least until seen by pulmonology - PFTs today to qualify patient for noninvasive home ventilation - Continue Spiriva (2) Alcoholic cardiomyopathy Code(s): I42.6 - ALCOHOLIC CARDIOMYOPATHY Comment: - Probable alcholic cardiomyopathy though will need ischemic work up once stabilized from this acute hospitalization and close Cardiology f/u - Echo shows EF 30-35% - BLE slightly improved - Patient agreeable to abstaining from EtOH - Continue metoprolol, losartan, aspirin, atorvastatin, furosemide; give additional dose of furosemide again today (3) KYE (obstructive sleep apnea) Code(s): G47.33 - OBSTRUCTIVE SLEEP APNEA (ADULT) (PEDIATRIC) Comment: - Also suspected obersity hypoventilation syndrome - Continue to encourage BiPAP use while sleeping (4) CAP (community acquired pneumonia) Code(s): J18.9 - PNEUMONIA, UNSPECIFIED ORGANISM Comment: - Now resolved, but still with significant sputum production - Completed course of azithromycin (3 days) and ceftriaxone (9 days) (5) Gout Code(s): M10.9 - GOUT, UNSPECIFIED Comment: - Left great toe MTP joint red and swollen - Continue colchicine (6) Toxic metabolic encephalopathy Code(s): G92 - TOXIC ENCEPHALOPATHY Comment: - Now resolved - Likely secondary to librium use for detox, hepatic encephaloapthy, and hypercapnia (7) Diabetes mellitus Code(s): E11.9 - TYPE 2 DIABETES MELLITUS WITHOUT COMPLICATIONS Comment: - A1c 7.0% - Continue metformin (8) HTN (hypertension) Code(s): I10 - ESSENTIAL (PRIMARY) HYPERTENSION Comment: - Normotensive - Continue metoprolol, losartan, furosemide (9) Alcohol use Code(s): Z72.89 - OTHER PROBLEMS RELATED TO LIFESTYLE Comment: - Patient reports he had not drank in the days leading up to his hospitalization - Not clearly in alcohol withdrawal on admission - Encourage drug/alcohol inpatient rehab on d/c (10) DVT prophylaxis Code(s): Z29.9 - ENCOUNTER FOR PROPHYLACTIC MEASURES, UNSPECIFIED Comment: - Lovenox (11) Full code status Code(s): Z78.9 - OTHER SPECIFIED HEALTH STATUS Comment: Status and Disposition: Inpatient. Anticipate d/c home with when noninvasive home ventilation can be secured. Attending: Mimi Wynne
[2019-05-09] MEDS: Melatonin 3 MG TAB PO SCH (20:42)
--- NOTE | 2019-05-09 21:25 | PRO ---
PULMONARY FUNCTION TEST REPORT: DATE OF PROCEDURE: 04/23/19 CLINICAL INFORMATION: 63-year-old male with shortness of breath. REFERRING MD: Lissett Sheets NP COMMENTS: Pulmonary function testing equipment was quality controlled. The patient was able to follow instructions well and test fulfills criteria for acceptability and reproducibility. INTERPRETATION: Forced vital capacity is 2.21 L or 47% predicted. FEV1 is 1.53 L or 43% predicted. FEV1/FVC is 92% predicted. Flow volume loop is of poor technical quality. Total lung capacity is 4.40 L or 63% predicted. Residual volume is 96% predicted. RV/TLC is 152% predicted. Diffusion capacity is 53% predicted and corrected to 106% when adjusted for alveolar ventilation. IMPRESSION: Pulmonary function testing suggestive of mild restrictive ventilatory defect and evidence of air trapping. Diffusion capacity appeared to be moderately decreased; however, corrected to normal when adjusted for alveolar ventilation. No prior PFTs were available for comparison at the time of dictation. [id number]/[facility] #: [id number] [facility]
[2019-05-10] MEDS: Acetaminophen TAB* 325 MG PO PRN ×3 (01:31→20:02)
[2019-05-10] MEDS: SPIRIVA Respimat* (tiotropium) 2.5 mcg/inh Inhaler INH SCH (07:26)
[2019-05-10] MEDS: Aspirin EC TAB* 81 MG TAB.EC PO SCH (08:09)
[2019-05-10] MEDS: Atorvastatin* 40 MG TAB PO SCH (08:09)
[2019-05-10] MEDS: Furosemide TAB* 20 MG PO SCH (08:09)
[2019-05-10] MEDS: metFORMIN* 500 MG TAB PO SCH ×2 (08:09→18:50)
[2019-05-10] MEDS: Pantoprazole TAB * 40 MG TAB PO SCH (08:09)
[2019-05-10] MEDS: Folic Acid TAB* 1 MG PO SCH (08:09)
[2019-05-10] MEDS: Losartan TAB* 25 MG PO SCH (08:09)
[2019-05-10] MEDS: Metoprolol Tartrate TAB* 25 MG PO SCH ×2 (08:10→20:03)
[2019-05-10] MEDS: Colchicine* 0.6 MG TAB PO SCH (08:12)
[2019-05-10] MEDS: Thiamine TAB* 100 MG TAB PO SCH (08:12)
[2019-05-10] MEDS: Magnesium Oxide TAB* 400 MG PO SCH (08:12)
[2019-05-10] MEDS: Enoxaparin(*) 40 MG/0.4 ML SYR SUBCUT SCH (08:12)
[2019-05-10] MEDS: BRIMONIDINE 0.025% BOTH EYES SCH ×3 (08:13→20:02)
[2019-05-10] MEDS: Benzonatate CAP* 100 MG PO SCH ×2 (08:13→20:02)
[2019-05-10] MEDS ORDERED: Furosemide TAB* 40 MG PO ONE (10:57)
--- NOTE | 2019-05-10 14:43 | PN ---
Subjective Date of Service: 05/10/19 Interval History: Mr. Rice is feeling well today. He offers no complaints. Had an uneventful night. Did not wear BiPAP. Has been up ambulating and not experiencing any SOB at rest or on exertion. Denies CP. No concerns from nursing. Family History: Unchanged from Admission Social History: Unchanged from Admission Past Medical History: Unchanged from Admission Objective Active Medications: Acetaminophen (Tylenol Tab*) 650 mg PO Q6H PRN PAIN - MILD Albuterol/Ipratropium (Duoneb (Albuterol 2.5 Mg/Ipratropium 0.5 Mg)) 1 neb INH Q4H PRN SOB/WHEEZING Artificial Tears (Lacrilube Oint*) 1 applic BOTH EYES Q4H PRN DRY EYE Aspirin (Aspirin Ec Tab*) 81 mg PO DAILY [facility] Atorvastatin Calcium (Lipitor*) 40 mg PO DAILY [facility] Benzonatate (Tessalon Cap*) 100 mg PO BID [facility] Colchicine (Colcrys*) 0.6 mg PO DAILY [facility] Enoxaparin Sodium (Lovenox(*)) 40 mg SUBCUT Q24H [facility] Folic Acid (Folvite Tab*) 1 mg PO DAILY [facility] Furosemide (Lasix Tab*) 40 mg PO DAILY [facility] Guaifenesin/Dextromethorphan (Robitussin Dm 100 Mg/10 Mg In 5 Ml) 5 ml PO Q4H PRN COUGH Heparin Sodium (Porcine) (Heparin Flush Picc/Ml/Cvc(*)) 1 - 3 ml FLUSH 0600, 1800 [facility]; Protocol Hydralazine HCl (Apresoline Iv*) 10 mg IV SLOW PU Q6H PRN SYSTOLIC BP GREATER THAN: 160 Losartan Potassium (Cozaar Tab*) 25 mg PO DAILY [facility] Magnesium Oxide (Magox 400 Tab*) 400 mg PO DAILY [facility] Melatonin (Melatonin) 3 mg PO BEDTIME [facility] Metformin HCl (Glucophage*) 500 mg PO 0800,1700 [facility] Metoprolol Tartrate (Lopressor Tab*) 12.5 mg PO Q12HR [facility] Pto:Brimonidine 0. (025% 7.5 Ml Btl) 1 dose BOTH EYES TID [facility] Pantoprazole Sodium (Protonix Tab*) 40 mg PO DAILY [facility] Polyethylene Glycol/Electrolytes (Miralax*) 17 gm PO DAILY PRN CONSTIPATION Thiamine HCl (Vitamin B-1 Tab*) 200 mg PO DAILY [facility] Tiotropium [place] (Spiriva Respimat 2.5 Mcg) 2 puff INH DAILY [facility] Vital Signs - 8 hr 05/10/19 05/10/19 05/10/19 07:27 07:32 08:00 Temperature 98.0 F Pulse Rate 87 83 Respiratory 16 20 16 Rate Blood Pressure 137/64 (mmHg) O2 Sat by Pulse 92 94 Oximetry 05/10/19 11:15 Temperature 98.2 F Pulse Rate 89 Respiratory 20 Rate Blood Pressure 104/63 (mmHg) O2 Sat by Pulse 92 Oximetry Oxygen Devices in Use Now: None Appearance: Middle-aged male sitting in chair in NAD Ears/Nose/Mouth/Throat: Mucous Membranes Moist Neck: NL Appearance and Movements; NL JVP, Trachea Midline Respiratory: Symmetrical Chest Expansion and Respiratory Effort, Clear to Auscultation - Diminished Cardiovascular: NL Sounds; No Murmurs; No JVD, RRR Abdominal: NL Sounds; No Tenderness; No Distention Extremities: - - +2 pitting BLE Neurological: Alert and Oriented x 3 Lines/Tubes/Other Access: Clean, Dry and Intact Peripheral IV Nutrition: Taking PO's Result Diagrams: 05/05/19 04:39 05/09/19 04:30 Assess/Plan/Problems-Billing Assessment: Mr. Rice is a 63 yo M with PMH of alcohol abuse, hypertriglyceridemia, KEY not on CPAP therapy, elevated L hemidiaphragm; who presented to the ER with AMS likely d/t EtOH withdrawal, librium use, respiratory failure requiring intubation initially; now on O2 and BIPAP at night; found to have alcoholic CM. - Patient Problems (1) Acute on chronic respiratory failure with hypoxia and hypercapnia Code(s): J96.21 - ACUTE AND CHRONIC RESPIRATORY FAILURE WITH HYPOXIA; J96.22 - ACUTE AND CHRONIC RESPIRATORY FAILURE WITH HYPERCAPNIA Comment: - Resolved, now on RA - Requiring intubation earlier this admission - Only 1 year history of smoking; should follow up with Pulmonology as an outpatient - Spiriva started this admission and can be continued on d/c at least until seen by pulmonology - PFTs yesterday to qualify for home Trilogy - Continue Spiriva (2) Alcoholic cardiomyopathy Code(s): I42.6 - ALCOHOLIC CARDIOMYOPATHY Comment: - Probable alcholic cardiomyopathy though will need ischemic work up once stabilized from this acute hospitalization and close Cardiology f/u - Echo shows EF 30-35% - BLE slightly improved - Patient agreeable to abstaining from EtOH - Continue metoprolol, losartan, aspirin, atorvastatin, furosemide; give additional dose of furosemide again today (3) KEY (obstructive sleep apnea) Code(s): G47.33 - OBSTRUCTIVE SLEEP APNEA (ADULT) (PEDIATRIC) Comment: - Also suspected obersity hypoventilation syndrome - Continue to encourage BiPAP use while sleeping - Working to secure home Trilogy unit (4) CAP (community acquired pneumonia) Code(s): J18.9 - PNEUMONIA, UNSPECIFIED ORGANISM Comment: - Now resolved, but still with significant sputum production - Completed course of azithromycin (3 days) and ceftriaxone (9 days) (5) Gout Code(s): M10.9 - GOUT, UNSPECIFIED Comment: - Left great toe MTP joint red and swollen - Continue colchicine (6) Toxic metabolic encephalopathy Code(s): G92 - TOXIC ENCEPHALOPATHY Comment: - Now resolved - Likely secondary to librium use for detox, hepatic encephaloapthy, and hypercapnia (7) Diabetes mellitus Code(s): E11.9 - TYPE 2 DIABETES MELLITUS WITHOUT COMPLICATIONS Comment: - A1c 7.0% - Continue metformin (8) HTN (hypertension) Code(s): I10 - ESSENTIAL (PRIMARY) HYPERTENSION Comment: - Normotensive - Continue metoprolol, losartan, furosemide (9) Alcohol use Code(s): Z72.89 - OTHER PROBLEMS RELATED TO LIFESTYLE Comment: - Patient reports he had not drank in the days leading up to his hospitalization - Not clearly in alcohol withdrawal on admission - Encourage drug/alcohol inpatient rehab on d/c (10) DVT prophylaxis Code(s): Z29.9 - ENCOUNTER FOR PROPHYLACTIC MEASURES, UNSPECIFIED Comment: - Lovenox (11) Full code status Code(s): Z78.9 - OTHER SPECIFIED HEALTH STATUS Comment: Status and Disposition: Inpatient. Anticipate d/c home with when noninvasive home ventilation can be secured, hopefully tomorrow. Attending: Mimi Wynne
[2019-05-10] MEDS: Melatonin 3 MG TAB PO SCH (20:02)
--- NOTE | 2019-05-11 00:07 | DS ---
CC: Dr. Darryn Khan * DISCHARGE SUMMARY: DATE OF ADMISSION: 04/23/19 ANTICIPATED DATE OF DISCHARGE: 05/11/19 PRIMARY CARE PROVIDER: Dr. Darryn Khan. ATTENDING PHYSICIAN: Dr. Mimi Wynne.* (DICTATED BY ROBI OLIVAS NP) PRIMARY DIAGNOSES: 1. Acute hypoxic and hypercapnic respiratory failure. 2. Community-acquired pneumonia. 3. Alcoholic cardiomyopathy. 4. Obstructive sleep apnea with obesity hypoventilation syndrome. 5. Toxic metabolic encephalopathy. 6. Acute kidney injury. SECONDARY DIAGNOSES: 1. Diabetes mellitus type 2. 2. Hypertension. 3. Alcohol abuse. STUDIES WHILE IN THE HOSPITAL: 1. EKG on 04/23/19, shows normal sinus rhythm with a rate of 92, QTc 462. No ST changes. 2. Brain CT on 04/23/19, reads as no acute intracranial abnormality, mild chronic small vessel ischemic disease. 3. Chest x-ray on 04/23/19, reads as chronic elevation of the left hemidiaphragm. No evidence for acute finding. Findings consistent with COPD. 4. Renal ultrasound on 04/23/19, reads as sonographically normal kidneys and bladder. 5. Transthoracic echocardiogram on 04/24/19, reads as left ventricular systolic function is moderately reduced. The estimated ejection fraction is 30 % to 35%. Moderate diffuse hypokinesis. Right ventricular systolic function is moderately reduced. The left atrium is mildly dilated. There is trace MR. There is no evidence of . There is no significant AR. There is trace TR. There is no significant pericardial effusion. Systolic pressure in the pulmonary arteries could not be accurately estimated. No prior studies for comparison. 6. Chest x-ray on 04/24/19, reads as low lung volumes. Previous films demonstrated a markedly elevated left hemidiaphragm. ET tube in place. 7. Brain MRI on 04/24/19, reads as no acute intracranial abnormality. Mild chronic small vessel ischemic disease is likely. 8. Chest x-ray on 04/26/19, reads as ET tube and nasogastric tube in place. Left lower lobe consolidation is noted. Hyperinflated right lung field is noted. 9. Brain CT on 04/27/19, reads as no acute intracranial hemorrhage or infarct. There is no significant interval change from the previous study. 10. Chest x-ray on 04/29/19, reads as significantly elevated left hemidiaphragm with similar overlying linear airspace opacification, likely it would be solar sales representative of atelectasis. 11. EEG on 04/30/19., Reads as essentially normal EEG other than some mild disorganization of background rhythm consistent with mild diffuse cerebral dysfunction. There are no focal or epileptiform measures to this recording. 12. Chest x-ray on 05/01/19, reads as hyperinflated lung lawrence with left base atelectasis. Right lung field appears hyperinflated. 13. Right upper extremity Doppler on 05/01/19, reads as no evidence for right upper extremity deep venous thrombosis. 14. Chest x-ray on 05/04/19, reads as stable elevation of hemidiaphragm with improved aeration in his left lung base. HISTORY OF PRESENT ILLNESS AND HOSPITAL COURSE: Mr. Rice is a 63-year-old male with past medical history of chronically elevated left hemidiaphragm, untreated with obstructive sleep apnea, alcoholism, and hyperlipidemia, who presented to the emergency room on 04/23/19, with altered mental status. Please see the history and physical by Dr. Belcher for complete summary of the events leading up to this hospitalization. In short, the patient reportedly quit drinking and was prescribed Librium and naltrexone, though subsequently developed altered mental status and so presented to the emergency room. In the emergency room, he had imaging as noted below. He was noted to be acidotic on ABG with pH of 7.13 and he was therefore admitted to the intensive care unit. The patient was also ultimately intubated for hypercapnic respiratory failure and was extubated on 04/26/19. He remained in the ICU and was transferred up to the floor on 05/01/19. Neurology was consulted for altered mental status. It was speculated that the altered mental status was secondary to long-term alcohol use as well as medications. The patient did have an echo and was noted to have acute congestive heart failure, which was suspected to be secondary to alcoholism. Mental status gradually improved with treatment of withdrawal symptoms and pneumonia. The patient was placed on a beta-zak, ARB, and furosemide for treatment of his alcoholic cardiomyopathy. He was noted to have significant peripheral edema, which is still present. Ultimately, he was treated with 3 days of azithromycin and 9 days of ceftriaxone for his community- acquired pneumonia. At one point, it was suspected that he had some gout in his left great toe MTP joint although the patient has been on colchicine for few days now without significant improvement in symptoms. The patient's CO2 has remained elevated. Most recent ABG on 05/04/19 showed a pCO2 of 69 with a normal pH. We have ordered BiPAP for use while here in the hospital though the patient has generally been unable to tolerate BiPAP secondary to sputum production from pneumonia. At this point, the patient's respiratory status is improved and essentially back to baseline with the exception of the CO2 retention. Cardiomyopathy is controlled with the exception of residual peripheral edema. Acute kidney injury has resolved. Encephalopathy has resolved and community-acquired pneumonia was treated with antibiotics. It has been determined that the patient would benefit from a home trilogy machine and the patient is agreeable with this plan. He offers no complaints today. He is anxious to return home. PHYSICAL EXAMINATION: On exam, he is alert and oriented x4. He has no focal neurological deficits. Heart has a regular rate and rhythm without murmurs, rubs, or gallops. There is +2 pitting to bilateral lower extremities most notable in the feet. Lungs are clear, but diminished to auscultation. There are no rhonchi, wheezes, or rubs. Abdomen is soft, nontender to palpation. Physical exam is otherwise benign. The patient has been up ambulating with a walker and standby assist without significant difficulty or shortness of breath. Mr. Rice is stable for discharge. Most recent vitals are as follows: Temp 98.2, heart rate 89, respiratory rate 20, oxygen saturation 93% on room air, blood pressure 104/63. DISCHARGE MEDICATIONS: New Medications: 1. Folic acid 1 mg p.o. daily. 2. Furosemide 40 mg p.o. daily. 3. Magnesium oxide 400 mg p.o. daily. 4. Metformin 500 mg p.o. b.i.d. 5. Metoprolol tartrate 12.5 mg p.o. b.i.d. 6. Thiamine 200 mg p.o. daily. Continued medications: 1. Aspirin 81 mg p.o. daily. 2. Atorvastatin 40 mg p.o. daily. 3. Losartan 25 mg p.o. daily. 4. Naltrexone 50 mg p.o. daily. Discontinued medications: 1. Librium. 2. Indapamide. DISCHARGE PLAN: Mr. Rice will be discharged home with his brother. Activity will be as tolerated. Diet will be heart healthy. Medications are as noted above. The patient has been started on metformin, which he has tolerated well here in the hospital. He additionally has been started on metoprolol and furosemide for his cardiomyopathy, which again he has tolerated well while here in the hospital. It is unclear how long he will need to remain on diuretics though at this point still has somewhat significant peripheral edema. He can continue his other usual medications with the exception of Librium, which may have been a contributing factor to the altered mental status and indapamide, which has been discontinued. Again we have ordered a trilogy for the patient's home use. He will need to follow up with his primary care provider in the next 4 to 7 days. He should follow up with a human resources recruiter and will likely need a repeat echocardiogram sometime in the near future. He should return to the emergency room or nearest hospital for any worsening of symptoms, shortness of breath, lightheadedness, dizziness, chest discomfort, high fevers, chills, night sweats, loss of consciousness, or any other worrisome signs or symptoms. DISCHARGE CONDITION: Stable. DISCHARGE DISPOSITION: Home. This is a summarized report of a complex medical history and hospital stay. For further details, please see the entire medical record. TIME SPENT: Approximately 50 minutes was spent on this discharge. ROBI OLIVAS, FLEECE TIER [id number]/[facility] #: [id number] [facility]
[2019-05-11] MEDS: Acetaminophen TAB* 325 MG PO PRN ×2 (06:15→21:48)
[2019-05-11 06:21] LABS: BUN/Creatinine Ratio 24.2 (8-20); Calcium 9.5 mg/dL (8.6-10.3); EGFR African American 97.5 (>60); EGFR Non-African American 80.6 (>60); Potassium 3.6 mmol/L (3.5-5.0)
[2019-05-11] MEDS: Colchicine* 0.6 MG TAB PO SCH (07:38)
[2019-05-11] MEDS: Atorvastatin* 40 MG TAB PO SCH (07:38)
[2019-05-11] MEDS: Folic Acid TAB* 1 MG PO SCH (07:38)
[2019-05-11] MEDS: Aspirin EC TAB* 81 MG TAB.EC PO SCH (07:38)
[2019-05-11] MEDS: Losartan TAB* 25 MG PO SCH (07:41)
[2019-05-11] MEDS: Furosemide TAB* 40 MG PO SCH (07:41)
[2019-05-11] MEDS: Pantoprazole TAB * 40 MG TAB PO SCH (07:41)
[2019-05-11] MEDS: Benzonatate CAP* 100 MG PO SCH ×2 (07:42→21:47)
[2019-05-11] MEDS: Thiamine TAB* 100 MG TAB PO SCH (07:43)
[2019-05-11] MEDS: metFORMIN* 500 MG TAB PO SCH ×2 (07:43→18:11)
[2019-05-11] MEDS: Magnesium Oxide TAB* 400 MG PO SCH (07:43)
[2019-05-11] MEDS: Metoprolol Tartrate TAB* 25 MG PO SCH ×2 (07:43→21:46)
[2019-05-11] MEDS: Enoxaparin(*) 40 MG/0.4 ML SYR SUBCUT SCH (07:45)
[2019-05-11] MEDS: BRIMONIDINE 0.025% BOTH EYES SCH ×3 (07:46→21:51)
[2019-05-11] MEDS: SPIRIVA Respimat* (tiotropium) 2.5 mcg/inh Inhaler INH SCH (08:09)
--- NOTE | 2019-05-11 08:34 | PN ---
Subjective Date of Service: 05/11/19 Interval History: Patient reports feeling "a little anxious" regarding discharge, but otherwise was no complaints. He denies chest pain, difficulty breathing, abd pain, fever/ chills. He plans to stay at his mom's house at discharge. He is agreeable to alcohol cessation and is not interested in outpatient drug and alcohol rehab counseling at this time. Family History: Unchanged from Admission Social History: Unchanged from Admission Past Medical History: Unchanged from Admission Objective Active Medications: Acetaminophen (Tylenol Tab*) 650 mg PO Q6H PRN PRN Reason: PAIN - MILD Last Admin: 05/11/19 06:15 Dose: 650 mg Albuterol/Ipratropium (Duoneb (Albuterol 2.5 Mg/Ipratropium 0.5 Mg)) 1 neb INH Q4H PRN PRN Reason: SOB/WHEEZING Last Admin: 04/28/19 10:39 Dose: 1 neb Artificial Tears (Lacrilube Oint*) 1 applic BOTH EYES Q4H PRN PRN Reason: DRY EYE Aspirin (Aspirin Ec Tab*) 81 mg PO DAILY [facility] Last Admin: 05/11/19 07:38 Dose: 81 mg Atorvastatin Calcium (Lipitor*) 40 mg PO DAILY [facility] Last Admin: 05/11/19 07:38 Dose: 40 mg Benzonatate (Tessalon Cap*) 100 mg PO BID [facility] Last Admin: 05/11/19 07:42 Dose: 100 mg Colchicine (Colcrys*) 0.6 mg PO DAILY [facility] Last Admin: 05/11/19 07:38 Dose: 0.6 mg Enoxaparin Sodium (Lovenox(*)) 40 mg SUBCUT Q24H [facility] Last Admin: 05/11/19 07:45 Dose: 40 mg Folic Acid (Folvite Tab*) 1 mg PO DAILY [facility] Last Admin: 05/11/19 07:38 Dose: 1 mg Furosemide (Lasix Tab*) 40 mg PO DAILY [facility] Last Admin: 05/11/19 07:41 Dose: 40 mg Guaifenesin/Dextromethorphan (Robitussin Dm 100 Mg/10 Mg In 5 Ml) 5 ml PO Q4H PRN PRN Reason: COUGH Last Admin: 05/07/19 08:28 Dose: 5 ml Heparin Sodium (Porcine) (Heparin Flush Picc/Ml/Cvc(*)) 1 - 3 ml FLUSH 0600, 1800 [facility]; Protocol Last Admin: 05/11/19 05:28 Dose: 1 ml Hydralazine HCl (Apresoline Iv*) 10 mg IV SLOW PU Q6H PRN PRN Reason: SYSTOLIC BP GREATER THAN: 160 Losartan Potassium (Cozaar Tab*) 25 mg PO DAILY [facility] Last Admin: 05/11/19 07:41 Dose: 25 mg Magnesium Oxide (Magox 400 Tab*) 400 mg PO DAILY [facility] Last Admin: 05/11/19 07:43 Dose: 400 mg Melatonin (Melatonin) 3 mg PO BEDTIME [facility] Last Admin: 05/10/19 20:02 Dose: 3 mg Metformin HCl (Glucophage*) 500 mg PO 0800,1700 [facility] Last Admin: 05/11/19 07:43 Dose: 500 mg Metoprolol Tartrate (Lopressor Tab*) 12.5 mg PO Q12HR [facility] Last Admin: 05/11/19 07:43 Dose: 12.5 mg Pto:Brimonidine 0. (025% 7.5 Ml Btl) 1 dose BOTH EYES TID [facility] Last Admin: 05/11/19 07:46 Dose: 1 dose Pantoprazole Sodium (Protonix Tab*) 40 mg PO DAILY [facility] Last Admin: 05/11/19 07:41 Dose: 40 mg Polyethylene Glycol/Electrolytes (Miralax*) 17 gm PO DAILY PRN PRN Reason: CONSTIPATION Thiamine HCl (Vitamin B-1 Tab*) 200 mg PO DAILY [facility] Last Admin: 05/11/19 07:43 Dose: 200 mg Tiotropium [place] (Spiriva Respimat 2.5 Mcg) 2 puff INH DAILY [facility] Last Admin: 05/11/19 08:09 Dose: 2 puff Vital Signs - 8 hr 05/11/19 05/11/19 03:25 08:12 Temperature 97.7 F Pulse Rate 81 79 Respiratory 20 10 Rate Blood Pressure 111/60 (mmHg) O2 Sat by Pulse 95 89 Oximetry Oxygen Devices in Use Now: None Appearance: Obese white male, sitting in chair, appearing comfortable and in NAD Eyes: No Scleral Icterus, - - PERRL Ears/Nose/Mouth/Throat: Mucous Membranes Moist Neck: Trachea Midline Respiratory: Symmetrical Chest Expansion and Respiratory Effort, - - diminished breath sounds on left side in mid and lower lung field consistent with elevated left hemidiaphragm, otherwise clear Cardiovascular: NL Sounds; No Murmurs; No JVD, RRR Abdominal: - - abd soft, nontender, nondistended Extremities: - - trace pitting edema to bilateral ankles Skin: No Rash or Ulcers Neurological: Alert and Oriented x 3 Result Diagrams: 05/05/19 04:39 05/11/19 05:40 Additional Lab and Data: . Microbiology and Other Data: . Assess/Plan/Problems-Billing Assessment: Mr. Rice is a 63 yo M with PMH of alcohol abuse, hypertriglyceridemia, KEY not on CPAP therapy, elevated L hemidiaphragm; who presented to the ER with AMS likely d/t EtOH withdrawal, librium use, respiratory failure requiring intubation initially; now on O2 and BIPAP at night; found to have alcoholic CM. - Patient Problems (1) Acute on chronic respiratory failure with hypoxia and hypercapnia Current Visit: Yes Status: Acute Code(s): J96.21 - ACUTE AND CHRONIC RESPIRATORY FAILURE WITH HYPOXIA; J96.22 - ACUTE AND CHRONIC RESPIRATORY FAILURE WITH HYPERCAPNIA SNOMED Code(s): 20997030236232 Comment: - Resolved, now on RA - Requiring intubation earlier this admission - Only 1 year history of smoking; should follow up with Pulmonology as an outpatient - Spiriva started this admission and can be continued on d/c at least until seen by pulmonology - PFTs in the hospital to qualify for home Trilogy; FVC and FEV1 ratio is 93%, therefore patient does not have COPD - Patient has chronic respiratory failure 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 The patient would benefit from the use of a noninvasive ventilator at home to reduce the work of breathing , improve pulmonary status, and hypercapnia. Patient failed to show improvement despite the use of BiPAP in our facility. -Ordering sniff test to demonstrate paralyzed hemidiaphragm (2) Alcoholic cardiomyopathy Current Visit: Yes Status: Acute Code(s): I42.6 - ALCOHOLIC CARDIOMYOPATHY SNOMED Code(s): 527794553 Comment: - Probable alcholic cardiomyopathy though will need ischemic work up once stabilized from this acute hospitalization and close Cardiology f/u - Echo shows EF 30-35% - BLE slightly improved - Patient agreeable to abstaining from EtOH - Continue metoprolol, losartan, aspirin, atorvastatin, furosemide (3) CAP (community acquired pneumonia) Current Visit: Yes Status: Acute Code(s): J18.9 - PNEUMONIA, UNSPECIFIED ORGANISM SNOMED Code(s): 183226001 Comment: - Completed course of azithromycin 500mg (3 days) and ceftriaxone (9 days) (4) Diabetes mellitus Current Visit: Yes Status: Acute Code(s): E11.9 - TYPE 2 DIABETES MELLITUS WITHOUT COMPLICATIONS SNOMED Code(s): 78133679 Comment: - A1c 7.0% - Continue metformin (5) Toxic metabolic encephalopathy Current Visit: Yes Status: Acute Code(s): G92 - TOXIC ENCEPHALOPATHY SNOMED Code(s): 857826996 Comment: - Now resolved - Likely secondary to librium use for detox, hepatic encephaloapthy, and hypercapnia (6) Hepatomegaly Current Visit: Yes Status: Acute Code(s): R16.0 - HEPATOMEGALY, NOT ELSEWHERE CLASSIFIED SNOMED Code(s): 89305245 Comment: - Patient with hepatomegaly without LFT changes - Follow with PCP and abstain from alcohol (7) Alcohol use Current Visit: Yes Status: Acute Code(s): Z72.89 - OTHER PROBLEMS RELATED TO LIFESTYLE SNOMED Code(s): 466483 Comment: - Patient reports he had not drank in the days leading up to his hospitalization - Not clearly in alcohol withdrawal on admission - Encourage drug/alcohol rehab on d/c (8) HTN (hypertension) Current Visit: Yes Status: Acute Code(s): I10 - ESSENTIAL (PRIMARY) HYPERTENSION SNOMED Code(s): 40421432 Comment: - Normotensive - Continue metoprolol, losartan, furosemide (9) KEY (obstructive sleep apnea) Current Visit: Yes Status: Acute Code(s): G47.33 - OBSTRUCTIVE SLEEP APNEA ( ADULT) (PEDIATRIC) SNOMED Code(s): 58926566 Comment: - Also suspected obersity hypoventilation syndrome - Continue to encourage BiPAP use while sleeping - Working to secure home Trilogy unit (10) Gout Current Visit: Yes Status: Acute Code(s): M10.9 - GOUT, UNSPECIFIED SNOMED Code(s): 82886190 Comment: - Left great toe MTP joint red and swollen - Continue colchicine (11) DVT prophylaxis Current Visit: Yes Status: Acute Code(s): Z29.9 - ENCOUNTER FOR PROPHYLACTIC MEASURES, UNSPECIFIED SNOMED Code(s): 707688831 Comment: - Lovenox (12) Full code status Current Visit: Yes Status: Acute Code(s): Z78.9 - OTHER SPECIFIED HEALTH STATUS SNOMED Code(s): 862475205 Comment: Status and Disposition: Inpatient. Anticipate d/c home with when noninvasive home ventilation can be secured
[2019-05-11] MEDS ORDERED: diPHENhydraMINE PO* 50 MG PO PRN (16:59)
[2019-05-11] MEDS: Melatonin 3 MG TAB PO SCH (21:48)
[2019-05-12] MEDS: Acetaminophen TAB* 325 MG PO PRN (06:05)
[2019-05-12] MEDS: SPIRIVA Respimat* (tiotropium) 2.5 mcg/inh Inhaler INH SCH (07:54)
[2019-05-12] MEDS: metFORMIN* 500 MG TAB PO SCH ×2 (08:52→17:26)
[2019-05-12] MEDS: Losartan TAB* 25 MG PO SCH (08:52)
[2019-05-12] MEDS: Pantoprazole TAB * 40 MG TAB PO SCH (08:52)
[2019-05-12] MEDS: Magnesium Oxide TAB* 400 MG PO SCH (08:52)
[2019-05-12] MEDS: Aspirin EC TAB* 81 MG TAB.EC PO SCH (08:52)
[2019-05-12] MEDS: Folic Acid TAB* 1 MG PO SCH (08:52)
[2019-05-12] MEDS: Thiamine TAB* 100 MG TAB PO SCH (08:52)
[2019-05-12] MEDS: Colchicine* 0.6 MG TAB PO SCH (08:52)
[2019-05-12] MEDS: Metoprolol Tartrate TAB* 25 MG PO SCH ×2 (08:52→20:45)
[2019-05-12] MEDS: Furosemide TAB* 40 MG PO SCH (08:53)
[2019-05-12] MEDS: Atorvastatin* 40 MG TAB PO SCH (08:53)
[2019-05-12] MEDS: Benzonatate CAP* 100 MG PO SCH ×2 (08:53→20:45)
[2019-05-12] MEDS: Enoxaparin(*) 40 MG/0.4 ML SYR SUBCUT SCH (09:41)
[2019-05-12] MEDS: BRIMONIDINE 0.025% BOTH EYES SCH (09:41)
[2019-05-12 10:32] LABS: BUN/Creatinine Ratio 23.9 (8-20); Calcium 9.6 mg/dL (8.6-10.3); EGFR African American 106.5 (>60); Potassium 3.8 mmol/L (3.5-5.0)
[2019-05-12] MEDS ORDERED: Magnesium Sulf 4 GM/100 ML IV* 4,000 MG/100 ML BAG IVPB ONE (10:43)
[2019-05-12] MEDS: BRIMONIDINE BOTH EYES SCH ×2 (16:44→20:45)
--- NOTE | 2019-05-12 17:40 | PN ---
Subjective Date of Service: 05/12/19 Interval History: Patient reports he only wore his BiPAP for approx 2 hours last night. He was unable to sleep until he removed the mask. Denies difficulty breathing, cough, fever/chills, chest pain, abd pain, palpitations. Family History: Unchanged from Admission Social History: Unchanged from Admission Past Medical History: Unchanged from Admission Objective Active Medications: Acetaminophen (Tylenol Tab*) 650 mg PO Q6H PRN PRN Reason: PAIN - MILD Last Admin: 05/12/19 06:05 Dose: 650 mg Albuterol/Ipratropium (Duoneb (Albuterol 2.5 Mg/Ipratropium 0.5 Mg)) 1 neb INH Q4H PRN PRN Reason: SOB/WHEEZING Last Admin: 04/28/19 10:39 Dose: 1 neb Artificial Tears (Lacrilube Oint*) 1 applic BOTH EYES Q4H PRN PRN Reason: DRY EYE Aspirin (Aspirin Ec Tab*) 81 mg PO DAILY [facility] Last Admin: 05/12/19 08:52 Dose: 81 mg Atorvastatin Calcium (Lipitor*) 40 mg PO DAILY [facility] Last Admin: 05/12/19 08:53 Dose: 40 mg Benzonatate (Tessalon Cap*) 100 mg PO BID [facility] Last Admin: 05/12/19 08:53 Dose: 100 mg Colchicine (Colcrys*) 0.6 mg PO DAILY [facility] Last Admin: 05/12/19 08:52 Dose: 0.6 mg Diphenhydramine HCl (Benadryl Po*) 50 mg PO BEDTIME PRN PRN Reason: INSOMNIA Last Admin: 05/11/19 21:47 Dose: 50 mg Enoxaparin Sodium (Lovenox(*)) 40 mg SUBCUT Q24H [facility] Last Admin: 05/12/19 09:41 Dose: 40 mg Folic Acid (Folvite Tab*) 1 mg PO DAILY [facility] Last Admin: 05/12/19 08:52 Dose: 1 mg Furosemide (Lasix Tab*) 40 mg PO DAILY [facility] Last Admin: 05/12/19 08:53 Dose: 40 mg Guaifenesin/Dextromethorphan (Robitussin Dm 100 Mg/10 Mg In 5 Ml) 5 ml PO Q4H PRN PRN Reason: COUGH Last Admin: 05/07/19 08:28 Dose: 5 ml Heparin Sodium (Porcine) (Heparin Flush Picc/Ml/Cvc(*)) 1 - 3 ml FLUSH 0600, 1800 [facility]; Protocol Last Admin: 05/12/19 05:57 Dose: 1 ml Losartan Potassium (Cozaar Tab*) 25 mg PO DAILY [facility] Last Admin: 05/12/19 08:52 Dose: 25 mg Magnesium Oxide (Magox 400 Tab*) 400 mg PO DAILY [facility] Last Admin: 05/12/19 08:52 Dose: 400 mg Melatonin (Melatonin) 3 mg PO BEDTIME [facility] Last Admin: 05/11/19 21:48 Dose: 3 mg Metformin HCl (Glucophage*) 500 mg PO 0800,1700 [facility] Last Admin: 05/12/19 08:52 Dose: 500 mg Metoprolol Tartrate (Lopressor Tab*) 12.5 mg PO Q12HR [facility] Last Admin: 05/12/19 08:52 Dose: 12.5 mg Pto: Lumify ( Brimonidine 0.025%) Eye Drops 1 dose BOTH EYES TID [facility] Last Admin: 05/12/19 16:44 Dose: 1 dose Polyethylene Glycol/Electrolytes (Miralax*) 17 gm PO DAILY PRN PRN Reason: CONSTIPATION Thiamine HCl (Vitamin B-1 Tab*) 200 mg PO DAILY [facility] Last Admin: 05/12/19 08:52 Dose: 200 mg Tiotropium [place] (Spiriva Respimat 2.5 Mcg) 2 puff INH DAILY [facility] Last Admin: 05/12/19 07:54 Dose: 2 puff Vital Signs - 8 hr 05/12/19 05/12/19 11:29 12:01 Temperature 97.8 F Pulse Rate 93 Respiratory 20 Rate Blood Pressure 96/60 102/70 (mmHg) O2 Sat by Pulse 96 Oximetry Oxygen Devices in Use Now: Nasal Cannula Appearance: Obese white male, sitting in chair, appearing comfortable and in NAD Eyes: No Scleral Icterus, - - PERRL Ears/Nose/Mouth/Throat: Mucous Membranes Moist Neck: NL Appearance and Movements; NL JVP Respiratory: Symmetrical Chest Expansion and Respiratory Effort, - - diminished breath sounds left side in lower/mid lung lawrence consistent with elevated left hemidiaphragm; cTA Cardiovascular: NL Sounds; No Murmurs; No JVD, RRR Abdominal: - - abd soft, nontender, nondistended Extremities: - - trace pedal edema bilaterally Skin: No Rash or Ulcers Neurological: Alert and Oriented x 3, NL Muscle Strength and Tone Result Diagrams: 05/05/19 04:39 05/12/19 09:58 Additional Lab and Data: . Microbiology and Other Data: . Assess/Plan/Problems-Billing Assessment: Mr. Rice is a 63 yo M with PMH of alcohol abuse, hypertriglyceridemia, KEY not on CPAP therapy, elevated L hemidiaphragm; who presented to the ER with AMS likely d/t EtOH withdrawal, librium use, respiratory failure requiring intubation initially; now on O2 and BIPAP at night; found to have alcoholic CM. - Patient Problems (1) Acute on chronic respiratory failure with hypoxia and hypercapnia Current Visit: Yes Status: Acute Code(s): J96.21 - ACUTE AND CHRONIC RESPIRATORY FAILURE WITH HYPOXIA; J96.22 - ACUTE AND CHRONIC RESPIRATORY FAILURE WITH HYPERCAPNIA SNOMED Code(s): 92620671682494 Comment: - Resolved, now on RA - Requiring intubation earlier this admission - Only 1 year history of smoking; should follow up with Pulmonology as an outpatient - Spiriva started this admission and can be continued on d/c at least until seen by pulmonology - PFTs in the hospital to qualify for home Trilogy; FVC and FEV1 ratio is 93%, therefore patient does not have COPD - Patient has chronic respiratory failure 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 The patient would benefit from the use of a noninvasive ventilator at home to reduce the work of breathing , improve pulmonary status, and hypercapnia. Patient failed to show improvement despite the use of BiPAP in our facility. -Ordering sniff test to demonstrate paralyzed hemidiaphragm, pending (2) Alcoholic cardiomyopathy Current Visit: Yes Status: Acute Code(s): I42.6 - ALCOHOLIC CARDIOMYOPATHY SNOMED Code(s): 063307368 Comment: - Probable alcholic cardiomyopathy though will need ischemic work up once stabilized from this acute hospitalization and close Cardiology f/u - Echo shows EF 30-35% - BLE edema improving - Patient agreeable to abstaining from EtOH - Continue metoprolol, losartan, aspirin, atorvastatin, furosemide (3) CAP (community acquired pneumonia) Current Visit: Yes Status: Acute Code(s): J18.9 - PNEUMONIA, UNSPECIFIED ORGANISM SNOMED Code(s): 583944674 Comment: - Completed course of azithromycin 500mg (3 days) and ceftriaxone (9 days) (4) Diabetes mellitus Current Visit: Yes Status: Acute Code(s): E11.9 - TYPE 2 DIABETES MELLITUS WITHOUT COMPLICATIONS SNOMED Code(s): 53154657 Comment: - A1c 7.0% - Continue metformin (5) Toxic metabolic encephalopathy Current Visit: Yes Status: Acute Code(s): G92 - TOXIC ENCEPHALOPATHY SNOMED Code(s): 547569933 Comment: - Now resolved - Likely secondary to librium use for detox, hepatic encephaloapthy, and hypercapnia (6) Hepatomegaly Current Visit: Yes Status: Acute Code(s): R16.0 - HEPATOMEGALY, NOT ELSEWHERE CLASSIFIED SNOMED Code(s): 52142660 Comment: - Patient with hepatomegaly without LFT changes - Follow with PCP and abstain from alcohol (7) Alcohol use Current Visit: Yes Status: Acute Code(s): Z72.89 - OTHER PROBLEMS RELATED TO LIFESTYLE SNOMED Code(s): 592635 Comment: - Patient reports he had not drank in the days leading up to his hospitalization - Not clearly in alcohol withdrawal on admission - Encourage drug/alcohol rehab on d/c (8) HTN (hypertension) Current Visit: Yes Status: Acute Code(s): I10 - ESSENTIAL (PRIMARY) HYPERTENSION SNOMED Code(s): 98626215 Comment: - Normotensive - Continue metoprolol, losartan, furosemide (9) KEY (obstructive sleep apnea) Current Visit: Yes Status: Acute Code(s): G47.33 - OBSTRUCTIVE SLEEP APNEA ( ADULT) (PEDIATRIC) SNOMED Code(s): 90861932 Comment: - Also suspected obersity hypoventilation syndrome - Continue to encourage BiPAP use while sleeping - Working to secure home Trilogy unit (10) Gout Current Visit: Yes Status: Acute Code(s): M10.9 - GOUT, UNSPECIFIED SNOMED Code(s): 27836020 Comment: - Left great toe MTP joint red and swollen - Continue colchicine (11) DVT prophylaxis Current Visit: Yes Status: Acute Code(s): Z29.9 - ENCOUNTER FOR PROPHYLACTIC MEASURES, UNSPECIFIED SNOMED Code(s): 855608016 Comment: - Lovenox (12) Full code status Current Visit: Yes Status: Acute Code(s): Z78.9 - OTHER SPECIFIED HEALTH STATUS SNOMED Code(s): 787179279 Comment: Status and Disposition: Inpatient. Anticipate d/c home with when noninvasive home ventilation can be secured
[2019-05-12] MEDS: Melatonin 3 MG TAB PO SCH (20:45)
[2019-05-12] MEDS: traZODone TAB* 50 MG TAB PO SCH (22:03)
[2019-05-13 05:16] LABS: Hematocrit 38 % (42-52); Hemoglobin 12.6 g/dL (14.0-18.0); Mean Platelet Volume 8.8 fL (7.4-10.4); Platelet Count 354 10^3/uL (150-450)
[2019-05-13 05:32] LABS: BUN/Creatinine Ratio 20.8 (8-20); Calcium 9.1 mg/dL (8.6-10.3); EGFR African American 96.4 (>60); EGFR Non-African American 79.6 (>60); Magnesium 1.8 mg/dL (1.9-2.7); Potassium 3.4 mmol/L (3.5-5.0)
[2019-05-13] MEDS: SPIRIVA Respimat* (tiotropium) 2.5 mcg/inh Inhaler INH SCH (07:28)
[2019-05-13] MEDS ORDERED: Potassium Chlor TAB* 20 MEQ TAB.ER PO ONE (07:46)
[2019-05-13] MEDS ORDERED: KCL 20 MEQ/100 ML IVPREMIX* 20 MEQ/100 ML BAG IV ONE (07:46)
[2019-05-13] MEDS ORDERED: Magnesium Sulfate 1 GM IV* 1 GM/100 ML BAG IV ONE (07:46)
[2019-05-13] MEDS: Enoxaparin(*) 40 MG/0.4 ML SYR SUBCUT SCH (08:27)
[2019-05-13] MEDS: Atorvastatin* 40 MG TAB PO SCH (08:28)
[2019-05-13] MEDS: Thiamine TAB* 100 MG TAB PO SCH (08:29)
[2019-05-13] MEDS: Metoprolol Tartrate TAB* 25 MG PO SCH ×2 (08:29→21:14)
[2019-05-13] MEDS: Benzonatate CAP* 100 MG PO SCH ×2 (08:29→21:17)
[2019-05-13] MEDS: Folic Acid TAB* 1 MG PO SCH (08:30)
[2019-05-13] MEDS: Colchicine* 0.6 MG TAB PO SCH (08:30)
[2019-05-13] MEDS: metFORMIN* 500 MG TAB PO SCH ×2 (08:30→16:36)
[2019-05-13] MEDS: Aspirin EC TAB* 81 MG TAB.EC PO SCH (08:30)
[2019-05-13] MEDS: Losartan TAB* 25 MG PO SCH (08:30)
[2019-05-13] MEDS: Magnesium Oxide TAB* 400 MG PO SCH (08:30)
[2019-05-13] MEDS: BRIMONIDINE BOTH EYES SCH ×3 (08:32→21:18)
[2019-05-13] MEDS: Furosemide TAB* 40 MG PO SCH (08:32)
--- NOTE | 2019-05-13 10:18 | PN ---
Subjective Date of Service: 05/13/19 Interval History: Patient c/o arm burning from KCl IV to nursing and is refusing further IV KCl. Patient denies chest pain, difficulty breathing, fever/chills, abd pain. Family History: Unchanged from Admission Social History: Unchanged from Admission Past Medical History: Unchanged from Admission Objective Active Medications: Acetaminophen (Tylenol Tab*) 650 mg PO Q6H PRN PRN Reason: PAIN - MILD Last Admin: 05/12/19 06:05 Dose: 650 mg Albuterol/Ipratropium (Duoneb (Albuterol 2.5 Mg/Ipratropium 0.5 Mg)) 1 neb INH Q4H PRN PRN Reason: SOB/WHEEZING Last Admin: 04/28/19 10:39 Dose: 1 neb Artificial Tears (Lacrilube Oint*) 1 applic BOTH EYES Q4H PRN PRN Reason: DRY EYE Aspirin (Aspirin Ec Tab*) 81 mg PO DAILY [facility] Last Admin: 05/13/19 08:30 Dose: 81 mg Atorvastatin Calcium (Lipitor*) 40 mg PO DAILY [facility] Last Admin: 05/13/19 08:28 Dose: 40 mg Benzonatate (Tessalon Cap*) 100 mg PO BID [facility] Last Admin: 05/13/19 08:29 Dose: 100 mg Colchicine (Colcrys*) 0.6 mg PO DAILY [facility] Last Admin: 05/13/19 08:30 Dose: 0.6 mg Diphenhydramine HCl (Benadryl Po*) 50 mg PO BEDTIME PRN PRN Reason: INSOMNIA Last Admin: 05/11/19 21:47 Dose: 50 mg Enoxaparin Sodium (Lovenox(*)) 40 mg SUBCUT Q24H [facility] Last Admin: 05/13/19 08:27 Dose: 40 mg Folic Acid (Folvite Tab*) 1 mg PO DAILY [facility] Last Admin: 05/13/19 08:30 Dose: 1 mg Furosemide (Lasix Tab*) 40 mg PO DAILY [facility] Last Admin: 05/13/19 08:32 Dose: 40 mg Guaifenesin/Dextromethorphan (Robitussin Dm 100 Mg/10 Mg In 5 Ml) 5 ml PO Q4H PRN PRN Reason: COUGH Last Admin: 05/07/19 08:28 Dose: 5 ml Heparin Sodium (Porcine) (Heparin Flush Picc/Ml/Cvc(*)) 1 - 3 ml FLUSH 0600, 1800 [facility]; Protocol Last Admin: 05/13/19 05:03 Dose: 1 ml Losartan Potassium (Cozaar Tab*) 25 mg PO DAILY [facility] Last Admin: 05/13/19 08:30 Dose: 25 mg Magnesium Oxide (Magox 400 Tab*) 400 mg PO DAILY [facility] Last Admin: 05/13/19 08:30 Dose: 400 mg Melatonin (Melatonin) 3 mg PO BEDTIME [facility] Last Admin: 05/12/19 20:45 Dose: 3 mg Metformin HCl (Glucophage*) 500 mg PO 0800,1700 [facility] Last Admin: 05/13/19 08:30 Dose: 500 mg Metoprolol Tartrate (Lopressor Tab*) 12.5 mg PO Q12HR [facility] Last Admin: 05/13/19 08:29 Dose: 12.5 mg Pto: Lumify ( Brimonidine 0.025%) Eye Drops 1 dose BOTH EYES TID [facility] Last Admin: 05/13/19 08:32 Dose: 1 dose Polyethylene Glycol/Electrolytes (Miralax*) 17 gm PO DAILY PRN PRN Reason: CONSTIPATION Thiamine HCl (Vitamin B-1 Tab*) 200 mg PO DAILY [facility] Last Admin: 05/13/19 08:29 Dose: 200 mg Tiotropium [place] (Spiriva Respimat 2.5 Mcg) 2 puff INH DAILY [facility] Last Admin: 05/13/19 07:28 Dose: 2 puff Trazodone HCl (Desyrel Tab*) 50 mg PO BEDTIME [facility] Last Admin: 05/12/19 22:03 Dose: 50 mg Vital Signs - 8 hr 05/13/19 03:41 Temperature 98.1 F Pulse Rate 92 Respiratory 16 Rate Blood Pressure 116/73 (mmHg) O2 Sat by Pulse 95 Oximetry Oxygen Devices in Use Now: None Appearance: Obese, white male, sitting in chair, appearing comfortable and in NAD Eyes: No Scleral Icterus, - - PERRL Ears/Nose/Mouth/Throat: Mucous Membranes Moist Neck: Trachea Midline Respiratory: Symmetrical Chest Expansion and Respiratory Effort, - - diminished breath sounds on left side in mid/lower lung field otherwise CTA Cardiovascular: NL Sounds; No Murmurs; No JVD, RRR Abdominal: - - abd soft, nontender, nondistended Extremities: No Clubbing, Cyanosis, - - +1 pedal edema bilaterally Skin: No Rash or Ulcers Neurological: Alert and Oriented x 3, NL Muscle Strength and Tone Result Diagrams: 05/13/19 05:00 05/13/19 14:27 Additional Lab and Data: . Microbiology and Other Data: . Assess/Plan/Problems-Billing Assessment: Mr. Rice is a 63 yo M with PMH of alcohol abuse, hypertriglyceridemia, KEY not on CPAP therapy, elevated L hemidiaphragm; who presented to the ER with AMS likely d/t EtOH withdrawal, librium use, respiratory failure requiring intubation initially; now on O2 and BIPAP at night; found to have alcoholic CM. - Patient Problems (1) Acute on chronic respiratory failure with hypoxia and hypercapnia Current Visit: Yes Status: Acute Code(s): J96.21 - ACUTE AND CHRONIC RESPIRATORY FAILURE WITH HYPOXIA; J96.22 - ACUTE AND CHRONIC RESPIRATORY FAILURE WITH HYPERCAPNIA SNOMED Code(s): 22028159946949 Comment: - Resolved, now on RA - Requiring intubation earlier this admission - Only 1 year history of smoking; should follow up with Pulmonology as an outpatient - Spiriva started this admission and can be continued on d/c at least until seen by pulmonology - PFTs in the hospital to qualify for home Trilogy; FVC and FEV1 ratio is 93%, therefore patient does not have COPD - Patient has chronic respiratory failure 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 The patient would benefit from the use of a noninvasive ventilator at home to reduce the work of breathing , improve pulmonary status, and hypercapnia. Patient failed to show improvement despite the use of BiPAP in our facility. -Ordering sniff test to demonstrate paralyzed hemidiaphragm, pending -Hypercapnia worsened today, patient refused BiPAP last night. We extensively discussed the risks of this (2) Alcoholic cardiomyopathy Current Visit: Yes Status: Acute Code(s): I42.6 - ALCOHOLIC CARDIOMYOPATHY SNOMED Code(s): 406498651 Comment: - Probable alcholic cardiomyopathy though will need ischemic work up once stabilized from this acute hospitalization and close Cardiology f/u - Echo shows EF 30-35% - BLE edema improving - Patient agreeable to abstaining from EtOH - Continue metoprolol, losartan, aspirin, atorvastatin, furosemide (3) CAP (community acquired pneumonia) Current Visit: Yes Status: Acute Code(s): J18.9 - PNEUMONIA, UNSPECIFIED ORGANISM SNOMED Code(s): 834674857 Comment: - Completed course of azithromycin 500mg (3 days) and ceftriaxone (9 days) (4) Diabetes mellitus Current Visit: Yes Status: Acute Code(s): E11.9 - TYPE 2 DIABETES MELLITUS WITHOUT COMPLICATIONS SNOMED Code(s): 05780838 Comment: - A1c 7.0% - Continue metformin (5) Toxic metabolic encephalopathy Current Visit: Yes Status: Acute Code(s): G92 - TOXIC ENCEPHALOPATHY SNOMED Code(s): 051460102 Comment: - Now resolved - Likely secondary to librium use for detox, hepatic encephaloapthy, and hypercapnia (6) Hepatomegaly Current Visit: Yes Status: Acute Code(s): R16.0 - HEPATOMEGALY, NOT ELSEWHERE CLASSIFIED SNOMED Code(s): 91655684 Comment: - Patient with hepatomegaly without LFT changes - Follow with PCP and abstain from alcohol (7) Alcohol use Current Visit: Yes Status: Acute Code(s): Z72.89 - OTHER PROBLEMS RELATED TO LIFESTYLE SNOMED Code(s): 927739 Comment: - Patient reports he had not drank in the days leading up to his hospitalization - Not clearly in alcohol withdrawal on admission - Encourage drug/alcohol rehab on d/c (8) HTN (hypertension) Current Visit: Yes Status: Acute Code(s): I10 - ESSENTIAL (PRIMARY) HYPERTENSION SNOMED Code(s): 10817247 Comment: - Normotensive - Continue metoprolol, losartan, furosemide (9) KEY (obstructive sleep apnea) Current Visit: Yes Status: Acute Code(s): G47.33 - OBSTRUCTIVE SLEEP APNEA ( ADULT) (PEDIATRIC) SNOMED Code(s): 72932217 Comment: - Also suspected obersity hypoventilation syndrome - Continue to encourage BiPAP use while sleeping - Working to secure home Trilogy unit (10) Gout Current Visit: Yes Status: Acute Code(s): M10.9 - GOUT, UNSPECIFIED SNOMED Code(s): 71406844 Comment: - Left great toe MTP joint red and swollen - Continue colchicine (11) Electrolyte imbalance Current Visit: Yes Status: Acute Code(s): E87.8 - OTH DISORDERS OF ELECTROLYTE AND FLUID BALANCE, NEC SNOMED Code(s): 486098636 Comment: -hypomagnesemia and hypokalemia, likely related to both alcohol use and furosemide -already daily replacing magnesium is still persistently low -adding amiloride to counteract this as patient needs furosemide due to HF, would likely be of benefit to HF as well (12) DVT prophylaxis Current Visit: Yes Status: Acute Code(s): Z29.9 - ENCOUNTER FOR PROPHYLACTIC MEASURES, UNSPECIFIED SNOMED Code(s): 387834761 Comment: - Lovenox (13) Full code status Current Visit: Yes Status: Acute Code(s): Z78.9 - OTHER SPECIFIED HEALTH STATUS SNOMED Code(s): 793096595 Comment: Status and Disposition: Inpatient. Anticipate d/c home with when noninvasive home ventilation can be secured
[2019-05-13] MEDS: aMILoride TAB* 5 MG PO SCH (12:41)
[2019-05-13] MEDS ORDERED: Magnesium Hydroxide LIQ* 30 ML UDC PO PRN (13:00)
[2019-05-13 15:00] LABS: BUN/Creatinine Ratio 21.4 (8-20); Calcium 9.5 mg/dL (8.6-10.3); EGFR African American 94.1 (>60); EGFR Non-African American 77.8 (>60); Potassium 4.2 mmol/L (3.5-5.0)
[2019-05-13] MEDS: traZODone TAB* 50 MG TAB PO SCH (21:17)
[2019-05-13] MEDS: Melatonin 3 MG TAB PO SCH (21:17)
[2019-05-13] MEDS: Acetaminophen TAB* 325 MG PO PRN (21:17)
[2019-05-14] MEDS: SPIRIVA Respimat* (tiotropium) 2.5 mcg/inh Inhaler INH SCH (07:28)
[2019-05-14] MEDS: Folic Acid TAB* 1 MG PO SCH (08:57)
[2019-05-14] MEDS: aMILoride TAB* 5 MG PO SCH (08:57)
[2019-05-14] MEDS: Magnesium Oxide TAB* 400 MG PO SCH (08:57)
[2019-05-14] MEDS: Atorvastatin* 40 MG TAB PO SCH (08:57)
[2019-05-14] MEDS: Colchicine* 0.6 MG TAB PO SCH (08:57)
[2019-05-14] MEDS: Furosemide TAB* 40 MG PO SCH (08:58)
[2019-05-14] MEDS: Losartan TAB* 25 MG PO SCH (08:58)
[2019-05-14] MEDS: Thiamine TAB* 100 MG TAB PO SCH (08:58)
[2019-05-14] MEDS: Aspirin EC TAB* 81 MG TAB.EC PO SCH (08:58)
[2019-05-14] MEDS: metFORMIN* 500 MG TAB PO SCH ×2 (08:58→17:11)
[2019-05-14] MEDS: Enoxaparin(*) 40 MG/0.4 ML SYR SUBCUT SCH (08:58)
[2019-05-14] MEDS: Potassium Chlor TAB* 20 MEQ TAB.ER PO SCH (08:58)
[2019-05-14] MEDS: BRIMONIDINE BOTH EYES SCH ×3 (08:59→21:39)
[2019-05-14] MEDS: Metoprolol Tartrate TAB* 25 MG PO SCH ×2 (09:03→21:34)
[2019-05-14] MEDS: Benzonatate CAP* 100 MG PO SCH ×2 (09:03→21:34)
[2019-05-14 09:15] LABS: BUN/Creatinine Ratio 24.7 (8-20); Calcium 10.2 mg/dL (8.6-10.3); EGFR African American 99.9 (>60); EGFR Non-African American 82.6 (>60); Potassium 4.3 mmol/L (3.5-5.0)
--- NOTE | 2019-05-14 16:25 | PN ---
Progress Note - Progress Note Date of Service: 05/14/19 - Pulm f/u note Note: Pt seen at request of Mandy. Pt reports feeling better. Pt is anxious to go home. Reports being comfortable with BiPAP and current mask. Active Medications Generic Name Dose Route Start Last Admin Trade Name Freq PRN Reason Stop Dose Admin Acetaminophen 650 mg 04/30/19 19:02 05/13/19 21:17 Tylenol Tab* PO 650 mg Q6H PRN Administration PAIN - MILD Albuterol/Ipratropium 1 neb 04/27/19 07:59 04/28/19 10:39 Duoneb (Albuterol 2.5 Mg/Ipratropium 0.5 Mg) INH 1 neb Q4H PRN Administration SOB/WHEEZING Amiloride HCl 5 mg 05/13/19 11:00 05/14/19 08:57 Midamor Tab* PO 5 mg DAILY [facility] Administration Artificial Tears 1 applic 04/27/19 10:35 Lacrilube Oint* BOTH EYES Q4H PRN DRY EYE Aspirin 81 mg 04/24/19 09:00 05/14/19 08:58 Aspirin Ec Tab* PO 81 mg DAILY [facility] Administration Atorvastatin Calcium 40 mg 04/24/19 09:00 05/14/19 08:57 Lipitor* PO 40 mg DAILY [facility] Administration Benzonatate 100 mg 05/05/19 21:00 05/14/19 09:03 Tessalon Cap* PO 100 mg BID [facility] Administration Colchicine 0.6 mg 05/07/19 09:00 05/14/19 08:57 Colcrys* PO 0.6 mg DAILY [facility] Administration Enoxaparin Sodium 40 mg 04/24/19 08:00 05/14/19 08:58 Lovenox(*) SUBCUT 40 mg Q24H [facility] Administration Folic Acid 1 mg 05/01/19 09:00 05/14/19 08:57 Folvite Tab* PO 1 mg DAILY [facility] Administration Furosemide 40 mg 05/11/19 09:00 05/14/19 08:58 Lasix Tab* PO 40 mg DAILY [facility] Administration Guaifenesin/Dextromethorphan 5 ml 05/05/19 15:18 05/07/19 08:28 Robitussin Dm 100 Mg/10 Mg In 5 Ml PO 5 ml Q4H PRN Administration COUGH Heparin Sodium (Porcine) 1 - 3 ml 04/30/19 18:00 05/14/19 05:46 Heparin Flush Picc/Ml/Cvc(*) FLUSH 1 ml 0600,1800 [facility] Administration Protocol Losartan Potassium 25 mg 05/07/19 15:41 05/14/19 08:58 Cozaar Tab* PO 25 mg DAILY [facility] Administration Magnesium Hydroxide 30 ml 05/13/19 13:00 Milk Of Magnesia Liq* PO Q4H PRN CONSTIPATION Magnesium Oxide 400 mg 05/05/19 09:00 05/14/19 08:57 Magox 400 Tab* PO 400 mg DAILY [facility] Administration Melatonin 3 mg 04/30/19 21:00 05/13/19 21:17 Melatonin PO 3 mg BEDTIME [facility] Administration Metformin HCl 500 mg 05/08/19 17:00 05/14/19 08:58 Glucophage* PO 500 mg 0800,1700 [facility] Administration Metoprolol Tartrate 12.5 mg 05/07/19 15:41 05/14/19 09:03 Lopressor Tab* PO 12.5 mg Q12HR [facility] Administration Pto: Lumify ( 1 dose 05/12/19 16:00 05/14/19 12:57 Brimonidine 0.025%) BOTH EYES 1 dose Eye Drops TID [facility] Administration Polyethylene Glycol/Electrolytes 17 gm 04/30/19 10:35 Miralax* PO DAILY PRN [facility]ST[facility] Potassium Chloride 20 meq 05/14/19 09:00 05/14/19 08:58 Klor Con Er Tab* PO 20 meq DAILY [facility] Administration Thiamine HCl 200 mg 04/30/19 10:00 05/14/19 08:58 Vitamin B-1 Tab* PO 200 mg DAILY [facility] Administration Tiotropium [place] 2 puff 05/02/19 19:00 05/14/19 07:28 Spiriva Respimat 2.5 Mcg INH 2 puff DAILY [facility] Administration Trazodone HCl 50 mg 05/12/19 21:00 05/13/19 21:17 Desyrel Tab* PO 50 mg BEDTIME [facility] Administration Vital Signs Temp Pulse Resp BP Pulse Ox 97.9 F 89 20 103/50 94 05/14/19 11:13 05/14/19 11:13 05/14/19 11:13 05/14/19 11:13 05/14/19 11:13 O/E: Pt in NAD HEENt: PERRLA Lungs: Diminished air entry at bases L>R CVS: S1, S2+ Abd: Obese, BS+ Ext: Normal ROM Skin: no rash Neuro: No focal deficits Laboratory Results - last 24 hr 05/14/19 08:38 Sodium 139 Potassium 4.3 Chloride 98 L Carbon Dioxide 33 H Anion Gap 8 BUN 23 Creatinine 0.93 Est GFR ( Amer) 99.9 Est GFR (Non-Af Amer) 82.6 BUN/Creatinine Ratio 24.7 H Glucose 132 H Calcium 10.2 I/R: 63 y o obese male with h/o KEY, ETOH abuse, cardiomyopathy 2/2 ETOH a/w AMS. Pt is known to me from recent ICU stay when he was admitted with hypercpanic resp failure requiring intubation and continued to have persistent hypercapnia. He doesnot have significant smoking history, only smoked for 1 year. His hypercapnia is secondary obesity hypoventilation and also neuromuscular issues form paralyzed lt hemidiaphragm. Pt also has h/o sleep apnea, still had hypercapnia inspite of being on BiPAP which points to more than sleep apnea being reason for hypercapnic resp failure Pt wiht signficant improvement in sx with NIPPV Pt has been waiting NIPPV set up at home which was declined earlier just approved today Educated pt on consequences of hypercapnic resp failure and importance of compliance with BiPAP Pt agreed to compliant with BiPAP Sniff test was reviewed- Pt with lt hemidiaphragm paralysis Will f/u as out pt
--- NOTE | 2019-05-14 18:52 | PN ---
Subjective Date of Service: 05/14/19 Interval History: Patient is feeling well. He has no complaints. He denies chest pain, difficulty breathing, fever/chills, abd pain, cough. Family History: Unchanged from Admission Social History: Unchanged from Admission Past Medical History: Unchanged from Admission Objective Active Medications: Acetaminophen (Tylenol Tab*) 650 mg PO Q6H PRN PRN Reason: PAIN - MILD Last Admin: 05/13/19 21:17 Dose: 650 mg Albuterol/Ipratropium (Duoneb (Albuterol 2.5 Mg/Ipratropium 0.5 Mg)) 1 neb INH Q4H PRN PRN Reason: SOB/WHEEZING Last Admin: 04/28/19 10:39 Dose: 1 neb Amiloride HCl (Midamor Tab*) 5 mg PO DAILY [facility] Last Admin: 05/14/19 08:57 Dose: 5 mg Artificial Tears (Lacrilube Oint*) 1 applic BOTH EYES Q4H PRN PRN Reason: DRY EYE Aspirin (Aspirin Ec Tab*) 81 mg PO DAILY [facility] Last Admin: 05/14/19 08:58 Dose: 81 mg Atorvastatin Calcium (Lipitor*) 40 mg PO DAILY [facility] Last Admin: 05/14/19 08:57 Dose: 40 mg Benzonatate (Tessalon Cap*) 100 mg PO BID [facility] Last Admin: 05/14/19 09:03 Dose: 100 mg Colchicine (Colcrys*) 0.6 mg PO DAILY [facility] Last Admin: 05/14/19 08:57 Dose: 0.6 mg Enoxaparin Sodium (Lovenox(*)) 40 mg SUBCUT Q24H [facility] Last Admin: 05/14/19 08:58 Dose: 40 mg Folic Acid (Folvite Tab*) 1 mg PO DAILY [facility] Last Admin: 05/14/19 08:57 Dose: 1 mg Furosemide (Lasix Tab*) 40 mg PO DAILY [facility] Last Admin: 05/14/19 08:58 Dose: 40 mg Guaifenesin/Dextromethorphan (Robitussin Dm 100 Mg/10 Mg In 5 Ml) 5 ml PO Q4H PRN PRN Reason: COUGH Last Admin: 05/07/19 08:28 Dose: 5 ml Heparin Sodium (Porcine) (Heparin Flush Picc/Ml/Cvc(*)) 1 - 3 ml FLUSH 0600, 1800 [facility]; Protocol Last Admin: 05/14/19 17:11 Dose: 1 ml Losartan Potassium (Cozaar Tab*) 25 mg PO DAILY [facility] Last Admin: 05/14/19 08:58 Dose: 25 mg Magnesium Hydroxide (Milk Of Magnanjana Liq*) 30 ml PO Q4H PRN PRN Reason: CONSTIPATION Magnesium Oxide (Magox 400 Tab*) 400 mg PO DAILY [facility] Last Admin: 05/14/19 08:57 Dose: 400 mg Melatonin (Melatonin) 3 mg PO BEDTIME [facility] Last Admin: 05/13/19 21:17 Dose: 3 mg Metformin HCl (Glucophage*) 500 mg PO 0800,1700 [facility] Last Admin: 05/14/19 17:11 Dose: 500 mg Metoprolol Tartrate (Lopressor Tab*) 12.5 mg PO Q12HR [facility] Last Admin: 05/14/19 09:03 Dose: 12.5 mg Pto: Lumify ( Brimonidine 0.025%) Eye Drops 1 dose BOTH EYES TID [facility] Last Admin: 05/14/19 12:57 Dose: 1 dose Polyethylene Glycol/Electrolytes (Miralax*) 17 gm PO DAILY PRN PRN Reason: CONSTIPATION Potassium Chloride (Klor Con Er Tab*) 20 meq PO DAILY [facility] Last Admin: 05/14/19 08:58 Dose: 20 meq Thiamine HCl (Vitamin B-1 Tab*) 200 mg PO DAILY [facility] Last Admin: 05/14/19 08:58 Dose: 200 mg Tiotropium [place] (Spiriva Respimat 2.5 Mcg) 2 puff INH DAILY [facility] Last Admin: 05/14/19 07:28 Dose: 2 puff Trazodone HCl (Desyrel Tab*) 50 mg PO BEDTIME [facility] Last Admin: 05/13/19 21:17 Dose: 50 mg Vital Signs - 8 hr 05/14/19 05/14/19 11:13 15:16 Temperature 97.9 F 97.9 F Pulse Rate 89 92 Respiratory 20 18 Rate Blood Pressure 103/50 100/68 (mmHg) O2 Sat by Pulse 94 96 Oximetry Oxygen Devices in Use Now: None Appearance: Obese, white male, sitting in chair, appearing comfortable and in NAD Eyes: No Scleral Icterus, - - PERRL Ears/Nose/Mouth/Throat: Mucous Membranes Moist Neck: NL Appearance and Movements; NL JVP Respiratory: Symmetrical Chest Expansion and Respiratory Effort, Clear to Auscultation Cardiovascular: NL Sounds; No Murmurs; No JVD, RRR Abdominal: - - abd soft, nontender, nondistended Extremities: No Clubbing, Cyanosis, - - trace edema to bilateral ankles Skin: No Rash or Ulcers Neurological: Alert and Oriented x 3, NL Muscle Strength and Tone Result Diagrams: 05/13/19 05:00 05/14/19 08:38 Additional Lab and Data: . Microbiology and Other Data: . Assess/Plan/Problems-Billing Assessment: Mr. Rice is a 63 yo M with PMH of alcohol abuse, hypertriglyceridemia, KEY not on CPAP therapy, elevated L hemidiaphragm; who presented to the ER with AMS likely d/t EtOH withdrawal, librium use, respiratory failure requiring intubation initially; now on O2 and BIPAP at night; found to have alcoholic CM. - Patient Problems (1) Acute on chronic respiratory failure with hypoxia and hypercapnia Current Visit: Yes Status: Acute Code(s): J96.21 - ACUTE AND CHRONIC RESPIRATORY FAILURE WITH HYPOXIA; J96.22 - ACUTE AND CHRONIC RESPIRATORY FAILURE WITH HYPERCAPNIA SNOMED Code(s): 17655979618978 Comment: - Resolved, now on RA - Requiring intubation earlier this admission - Only 1 year history of smoking; should follow up with Pulmonology as an outpatient - Spiriva started this admission and can be continued on d/c at least until seen by pulmonology - PFTs in the hospital to qualify for home Trilogy; FVC and FEV1 ratio is 93%, therefore patient does not have COPD - Patient has chronic respiratory failure in 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 The patient would benefit from the use of a noninvasive ventilator at home to reduce the work of breathing, improve pulmonary status, and hypercapnia. Patient failed to show improvement despite the use of BiPAP in our facility. -Dr. Alvarez consulted and agrees with noninvasive ventilator (2) Alcoholic cardiomyopathy Current Visit: Yes Status: Acute Code(s): I42.6 - ALCOHOLIC CARDIOMYOPATHY SNOMED Code(s): 205729488 Comment: - Probable alcholic cardiomyopathy though will need ischemic work up once stabilized from this acute hospitalization and close Cardiology f/u - Echo shows EF 30-35% - BLE edema improving - Patient agreeable to abstaining from EtOH - Continue metoprolol, losartan, aspirin, atorvastatin, furosemide (3) CAP (community acquired pneumonia) Current Visit: Yes Status: Acute Code(s): J18.9 - PNEUMONIA, UNSPECIFIED ORGANISM SNOMED Code(s): 533344154 Comment: - Completed course of azithromycin 500mg (3 days) and ceftriaxone (9 days) (4) Diabetes mellitus Current Visit: Yes Status: Acute Code(s): E11.9 - TYPE 2 DIABETES MELLITUS WITHOUT COMPLICATIONS SNOMED Code(s): 10960544 Comment: - A1c 7.0% - Continue metformin (5) Toxic metabolic encephalopathy Current Visit: Yes Status: Acute Code(s): G92 - TOXIC ENCEPHALOPATHY SNOMED Code(s): 149256122 Comment: - Now resolved - Likely secondary to librium use for detox, hepatic encephaloapthy, and hypercapnia (6) Hepatomegaly Current Visit: Yes Status: Acute Code(s): R16.0 - HEPATOMEGALY, NOT ELSEWHERE CLASSIFIED SNOMED Code(s): 39401331 Comment: - Patient with hepatomegaly without LFT changes - Follow with PCP and abstain from alcohol (7) Alcohol use Current Visit: Yes Status: Acute Code(s): Z72.89 - OTHER PROBLEMS RELATED TO LIFESTYLE SNOMED Code(s): 446406 Comment: - Patient reports he had not drank in the days leading up to his hospitalization - Not clearly in alcohol withdrawal on admission - Encourage drug/alcohol rehab on d/c (8) HTN (hypertension) Current Visit: Yes Status: Acute Code(s): I10 - ESSENTIAL (PRIMARY) HYPERTENSION SNOMED Code(s): 25224439 Comment: - Normotensive - Continue metoprolol, losartan, furosemide (9) KEY (obstructive sleep apnea) Current Visit: Yes Status: Acute Code(s): G47.33 - OBSTRUCTIVE SLEEP APNEA ( ADULT) (PEDIATRIC) SNOMED Code(s): 42310613 Comment: - Also suspected obersity hypoventilation syndrome - Continue to encourage BiPAP use while sleeping - Working to secure home Trilogy unit (10) Gout Current Visit: Yes Status: Acute Code(s): M10.9 - GOUT, UNSPECIFIED SNOMED Code(s): 33096037 Comment: - Left great toe MTP joint red and swollen - Continue colchicine (11) Electrolyte imbalance Current Visit: Yes Status: Acute Code(s): E87.8 - OTH DISORDERS OF ELECTROLYTE AND FLUID BALANCE, NEC SNOMED Code(s): 404707076 Comment: -hypomagnesemia and hypokalemia, likely related to both alcohol use and furosemide -already daily replacing magnesium is still persistently low -adding amiloride to counteract this as patient needs furosemide due to HF, would likely be of benefit to HF as well (12) DVT prophylaxis Current Visit: Yes Status: Acute Code(s): Z29.9 - ENCOUNTER FOR PROPHYLACTIC MEASURES, UNSPECIFIED SNOMED Code(s): 303175264 Comment: - Lovenox (13) Full code status Current Visit: Yes Status: Acute Code(s): Z78.9 - OTHER SPECIFIED HEALTH STATUS SNOMED Code(s): 277568278 Comment: Status and Disposition: Inpatient. Anticipate d/c home tomorrow morning after Trilogy delivered to hospital.
[2019-05-14] MEDS: Melatonin 3 MG TAB PO SCH (21:34)
[2019-05-14] MEDS: Acetaminophen TAB* 325 MG PO PRN (21:34)
[2019-05-14] MEDS: traZODone TAB* 50 MG TAB PO SCH (21:34)
[2019-05-15] MEDS: Furosemide TAB* 40 MG PO SCH (08:22)
[2019-05-15] MEDS: Colchicine* 0.6 MG TAB PO SCH (08:22)
[2019-05-15] MEDS: Losartan TAB* 25 MG PO SCH (08:22)
[2019-05-15] MEDS: Folic Acid TAB* 1 MG PO SCH (08:22)
[2019-05-15] MEDS: Magnesium Oxide TAB* 400 MG PO SCH (08:22)
[2019-05-15] MEDS: metFORMIN* 500 MG TAB PO SCH (08:22)
[2019-05-15] MEDS: Thiamine TAB* 100 MG TAB PO SCH (08:22)
[2019-05-15] MEDS: Potassium Chlor TAB* 20 MEQ TAB.ER PO SCH (08:22)
[2019-05-15] MEDS: Aspirin EC TAB* 81 MG TAB.EC PO SCH (08:22)
[2019-05-15] MEDS: BRIMONIDINE BOTH EYES SCH (08:23)
[2019-05-15] MEDS: Atorvastatin* 40 MG TAB PO SCH (08:23)
[2019-05-15] MEDS: Metoprolol Tartrate TAB* 25 MG PO SCH (08:23)
[2019-05-15] MEDS: Enoxaparin(*) 40 MG/0.4 ML SYR SUBCUT SCH (08:23)
[2019-05-15] MEDS: Benzonatate CAP* 100 MG PO SCH (08:23)
[2019-05-15] MEDS: aMILoride TAB* 5 MG PO SCH (08:23)
[2019-05-15 11:00] VITALS: BP 121/73
--- NOTE | 2019-05-15 13:38 | DS ---
DISCHARGE SUMMARY: ADDENDUM UPDATE: DATE OF ACTUAL DISCHARGE: 05/15/19 ATTENDING PHYSICIAN WHILE IN HOSPITAL: Dr. Nic Lugo.* (DICTATED BY ANTONINA CAPONE) Please see the initial discharge summary dictated by Lissett Sheets NP, for further details regarding the patient's hospital stay. Initially, his discharge summary was dictated intent as patient of discharge; however, was unfortunately not completed due to insurance authorization issues for the patient to receive a noninvasive ventilator. However, it has been approved by the insurance company and it will be delivered to his home today. 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 Updates include: PRIMARY DIAGNOSES: 1. 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 2. Community acquired pneumonia, resolved. 3. Alcoholic cardiomyopathy. 4. Toxic metabolic encephalopathy, likely related to Librium use and possibly in combination with hypercapnia. 5. Acute kidney injury, resolved. 6. Acute gout flare. SECONDARY DIAGNOSES: 1. Diabetes mellitus type 2. 2. Hypertension. 3. Alcohol abuse. HOSPITAL COURSE: Further details of the hospital course from the point of the hospital course dictated by Lissett Sheets ACADEMIC INTERN, there are a few significant updates. The patient did have some electrolyte abnormalities, which I suspect was related to diuresis and he was started on amiloride to help ameliorate this. Additionally, the patient continued to have poor adherence to his BiPAP mask; however, trazodone was started at bedtime, which had helped the patient to sleep and therefore tolerate the BiPAP mask. Ultimately, the patient was additionally seen in consultation by Dr. Alvarez, who did confirm the necessity of the patient's noninvasive ventilator at home. DISCHARGE INSTRUCTIONS: The patient is to follow up with his primary care provider within 1 week regarding this complex hospitalization. The patient should follow up with a metallurgical tester as well. Ultimately, he should be needing an echocardiogram in the future. He has seen Dr. Alvarez in the hospital and he should follow up with her on an outpatient basis as well. At the time of followup with his primary care provider, the time course for his continuation of colchicine should be determined and a repeat BMP and magnesium should be completed in the office. He does still have peripheral edema and perhaps, with improvement of his cardiomyopathy with continued alcohol abstinence, this will improve, though this should be determined by his primary care provider as well as Cardiology if needed. He additionally was recommended to follow up with a drug and alcohol counselor in the outpatient setting if needing further support for alcoholic abstinence and the benefits of further alcoholic abstinence have been reiterated to him during his hospital stay. He should return to the emergency room for any worsening symptoms including shortness of breath, lightheadedness, dizziness, chest discomfort, fevers, chills, loss of consciousness, or any concerning symptoms. The patient is having a Trilogy ventilator delivered to his house this afternoon. He has been advised to please call the medical equipment company, Dr. Alvarez's office, or his primary care provider's office if he is having issues with adherence to this device. DISCHARGE MEDICATIONS: New Medications: 1. Folic acid 1 mg p.o. daily. 2. Lasix 40 mg p.o. daily 3. Magnesium oxide 400 mg p.o. daily 4. Metformin 500 mg p.o. b.i.d. 5. Metoprolol tartrate 12.5 mg p.o. b.i.d. 6. Thiamine 200 mg p.o. daily. 7. Amiloride 5 mg p.o. daily. 8. Trazodone 50 mg p.o. at bedtime. 9. Colchicine 0.6 mg p.o. daily. Continued Home Medications: 1. Aspirin 81 mg p.o. daily. 2. Atorvastatin 40 mg p.o. daily. 3. Naltrexone 50 mg p.o. daily. 4. Losartan 25 mg p.o. daily. 5. Brimonidine 0.2% eyedrops 1 drop to both eyes t.i.d. Discontinued Home Medications: 1. Librium 2. Indapamide. CONDITION ON DISCHARGE: Stable. DISPOSITION: Home. TIME SPENT ON DISCHARGE: Approximately 40 minutes were spent on this discharge , approximately half of this time was spent at the bedside discussing the plan of care. ANTONINA CAPONE [id number]/[facility] #: [id number] [facility]
== END 2019-05-15 11:15 | disposition home or self-care (01) | DRG 208 ==
LOC: ED 19:43 → ICU 22:22 → MED 05-02 09:55
PROVIDERS: ADMIT Hospitalist; ATTEND Internal Medicine
PROC: 5A1945Z Respiratory Ventilation, 24-96 Consecutive Hours (ICD-10-PCS; principal; 2019-04-23)
PROC: 0BH17EZ Insertion of Endotracheal Airway into Trachea, Via Natural or Artificial Opening (ICD-10-PCS; 2019-04-23)
PROC: 5A09557 Assistance with Respiratory Ventilation, Greater than 96 Consecutive Hours, Continuous Positive Airway Pressure (ICD-10-PCS; 2019-04-28)
PROC: 4A00X4Z Measurement of Central Nervous Electrical Activity, External Approach (ICD-10-PCS; 2019-04-30)
DX: J96.21 Acute and chronic respiratory failure with hypoxia (principal); G92 Toxic encephalopathy; J15.211 Pneumonia due to Methicillin susceptible Staphylococcus aureus; E66.2 Morbid (severe) obesity with alveolar hypoventilation; I42.6 Alcoholic cardiomyopathy; N17.9 Acute kidney failure, unspecified; J44.0 Chronic obstructive pulmonary disease with (acute) lower respiratory infection; J96.22 Acute and chronic respiratory failure with hypercapnia; M10.9 Gout, unspecified; E11.9 Type 2 diabetes mellitus without complications; I10 Essential (primary) hypertension; F10.10 Alcohol abuse, uncomplicated; T42.4X5A Adverse effect of benzodiazepines, initial encounter; E78.5 Hyperlipidemia, unspecified; I50.9 Heart failure, unspecified; I11.0 Hypertensive heart disease with heart failure; E78.1 Pure hyperglyceridemia; R47.1 Dysarthria and anarthria; K70.30 Alcoholic cirrhosis of liver without ascites; K70.40 Alcoholic hepatic failure without coma; E83.42 Hypomagnesemia; Z68.32 Body mass index [BMI] 32.0-32.9, adult; Z79.84 Long term (current) use of oral hypoglycemic drugs; Z79.82 Long term (current) use of aspirin; Z79.899 Other long term (current) drug therapy; Y92.9 Unspecified place or not applicable
CPT/HCPCS: 36415; 36600; 70450; 70551; 71045; 71046; 76000; 76775; 80048; 80053; 80307; 80320; 80329; 81003; 82140; 82330; 82550; 82746; 82803; 83036; 83605; 83735; 83930; 84100; 84300; 84425; 84443; 84484; 85014; 85018; 85025; 85027; 85049; 87070; 87077; 87186; 87205; 87641; 93005; 93306; 94002; 94003; 94010; 94640; 94660; 94726; 94729; 94760; 95819; 99285; A9270-GY; C8929; G0480; G8987-GO-CL; G8988-GO-CI; J0330; J0456; J0610; J0696; J1650; J1940; J2060; J2704; J3411; J3475; J3480; J3490; J3535